=== PATIENT | female | born 1935 | race Caucasian/White ===

== ENCOUNTER 2016-07-03 12:36 | Day surgery (SDC) | payer MEDICARE ==
[~2016-07-03] VITALS: Ht 162.6 cm; Wt 71.2 kg
[~2016-07-03 12:36] MED LIST: ASPIRIN81 MG PO; CLARITIN 10MG T10 MG PO; COUMADIN 5MG TAB5 MG PO; EFFEXOR XR 75MG75 MG PO; FLEXERIL10 MG PO; HYZAAR 50-12.51 EACH PO; LASIX40 MG PO; METFORMIN HCL1000 MG PO; METOPROLOL 25 M25 MG PO; MUCINEX600 M1 PO; NAMENDA XR28 MG PO; NIFEDIPINE XL 330 MG PO; NORCO 325 MG-51 TAB PO; PACERONE200 MG PO; PRILOSEC20 M1 PO; PROAIR HFA0.09 MG/AC IH; SIMVASTATIN20 MG PO; SINGULAIR10 MG PO; TOPROL XL 100M100 MG PO; VENTOLIN H0.09 MG/AC IH; VITAMIN B121000 MC1 PO; VITAMIN B1250 MG PO
--- NOTE | 2016-07-03 15:22 | Operative Note ---
Upper GI Endoscopy Procedure date: 07/03/16 Date of : 37 Procedure:Upper GI Endoscopy Endoscopic retrograde cholangiopancreatography with biliary sphincterotomy and balloon extraction Indications: Mrs. Connolly is a 80-year-old female with chronic RIGHT upper quadrant abdominal pain. Her MRCP showed abnormal imaging of the common bile duct or there was no mass lesion but there was attenuation of the mid aspect of the lateral segment of the LEFT intrahepatic biliary tree. The patient has had some chronic constipation. The patient's biliary chemistries are normal with alkaline phosphatase 71, total bilirubin 0.8, ALT 21. ERCP is performed for further evaluation. The patient Has had an elevated lipase in the past. Performing Provider: Sarika Arias MD Referring Provider: Baldo Llamas M.D. Sedation: MACSedation Procedure: Prior to the procedure, a history and physical exam was performed, and patients medications and allergies were reviewed. The risks and benefits of the procedure and the sedation options and risks were discussed with the patient. All questions were answered and informed consent was obtained. The patient was brought to the procedure room. Patient identification and proposed procedure were verified by the physician and the nurse. The patient was placed in a left lateral decubitus position and the scope was passed under direct vision. Throughout the procedure, the patient's blood pressure, pulse, and oxygen saturations were monitored continuously. The endoscope was introduced through the mouth, and advanced to the second part of duodenum. The upper GI endoscopy was accomplished without difficulty. The patient tolerated the procedure well. Findings: The side-viewing endoscope was passed directly into the upper esophagus and passed to the second portion of the duodenum. The esophagus, stomach and duodenum were normal except for nonerosive gastroesophageal reflux disease and mild reactive gastritis. The ampulla was hidden behind redundant duodenal folds making its cannulation very difficult in the beginning. There was moderate spasm and glucagon was utilized. The pancreatic duct was cannulated initially. There was mild dilation of the pancreatic duct to 4-5 mm but there were no ductular ectasias or stricturing of the pancreatic duct. The common bile duct was eventually selectively cannulated and the common bile duct was 9 mm maximally. There was normal filling of the intrahepatic biliary system. There was no filling defect or stricturing noted. There was moderate to markedly delayed drainage of bile and contrast very indicative of sphincter of Oddi dysfunction and there was obvious tightness at the sphincter of Oddi. A biliary sphincterotomy was performed. Next, a nondistended 10 mm sweeping balloon was swept from the hilum twice with the passage of dark gold and bowel and a mild amount of biliary debris. There was excellent decompression of the biliary system. The gallbladder itself was mildly distended. Immediate complications: None EBL (ml): 0 Impression: 1. 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 Mild dilation of pancreatic/biliary system secondary to sphincter ability dysfunction and age 3. Mild dilation of gallbladder without any cholangiographic evidence of cholecystitis Recommendations: I do feel that she will have clinical improvement with biliary sphincterotomy and balloon sweep.the patient did have dilation of both the pancreatic and biliary tree and she has had RIGHT upper quadrant pain and elevated lipase which are suggestive of sphincter motility dysfunction. I am going to recommend surveillance/screening colonoscopy in the next couple of weeks. I will treat for visceral sensitivity. at [id number]
--- NOTE | 2016-07-03 15:51 | Anesthesia Record ---
Anesthesia Record Part I Total IV fluids: 1400 EBL (ml): 0 Urine Output: 0 B/P: 102/58 % SaO2: 95 Pulse: 91 Resps: 16 Temp: 97.8 Patient is: Drowsy, Stable Stable to PACU at: 1515 (sds) at 1550
--- NOTE | 2016-07-03 15:51 | Anesthesia Record ---
Anesthesia Record Part II Discharge time: 1515 Destination: Same day surgery PACU nurse assessment review? Yes Patient is: Stable Anesthesia complications? No at 1550
[2016-07-03 16:33] VITALS: BP 159/94
--- NOTE | 2016-07-11 08:10 | RADIOLOGY REPORT PS360 ---
ERCP RADIOLOGIC CLINICAL INDICATION: Right upper quadrant pain, follow-up abnormal CT scan. Left hepatic biliary dilatation unexplained RUQ PAIN ORDERING PHYSICIAN: SARIKA SHAH PATIENT AGE: 80 years Fluoroscopy time: 2 minutes and 51 seconds COMPARISON: Multiple previous CT scans and MRI abdomen FINDINGS: Multiple images submitted from the ERCP. The pancreatic duct and common bile duct have an unremarkable appearance. The biliary radicles also have an unremarkable appearance. No central obstructing lesions are evident.No common duct stones IMPRESSION: Unremarkable ERCP
== END 2016-07-03 16:15 | disposition home or self-care (01) ==
LOC: SDC 12:36
PROVIDERS: Internal Medicine Gastroenterology
PROC: 0F798ZZ Dilation of Common Bile Duct, Via Natural or Artificial Opening Endoscopic (ICD-10-PCS; 2016-07-03)
PROC: 0FC98ZZ Extirpation of Matter from Common Bile Duct, Via Natural or Artificial Opening Endoscopic (ICD-10-PCS; 2016-07-03)
PROC: 0F7D8ZZ Dilation of Pancreatic Duct, Via Natural or Artificial Opening Endoscopic (ICD-10-PCS; principal; 2016-07-03 13:00)
DX: K80.50 Calculus of bile duct without cholangitis or cholecystitis without obstruction (principal); K83.0 Cholangitis; K82.8 Other specified diseases of gallbladder
CPT/HCPCS: J2405

== ENCOUNTER 2016-10-19 06:54 | Emergency (ER) | payer MEDICARE ==
[~2016-10-19] VITALS: Ht 162.6 cm; Wt 68.0 kg
[2016-10-19] MEDS ORDERED: INVOKANA100 MG PO (07:09)
[2016-10-19] MEDS ORDERED: METFORMIN500 MG PO (07:10)
[2016-10-19] MEDS ORDERED: WARFARIN SOD5 MG PO (07:12)
[2016-10-19] MEDS ORDERED: DULOXETINE 30MG30 MG FT (07:13)
--- NOTE | 2016-10-19 07:29 | Emergency Room Report ---
History of Present Illness Time Seen by MD Linares Presenting Problem in Triage Pt arrived:Walked Presenting Problem:S/P FALL OVER FLOOR FAN. 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 N Clinical Suspician of Infection? N Mental Status: 1 - Regular (Normal Baseline) Sepsis Risk:Possible Sepsis Risk Have you (or family members/close friends) recently traveled outside the [place]? N If Yes, where/when: Have you had exposure to infectious disease within the past month? N TB? Other? Specify: Source patient, RN notes reviewed, family, old records Exam Limitations no limitations Comment pt with acute trip type fall with injury to lt fifth finger which occurred this am Cardiac Chest Pain Chest pain indicative of cardiac No Timing/Duration this evening Severity moderate ALLERGIES Coded Allergies: No Known Allergies (04/19/16) Home Medications Active Scripts HYDROCODONE/ACETAMINOPHEN ([place] 5-325 Tablet) 1 TAB PO Q4HP PRN BROKEN FOOT #10 TAB Prov: 08/12/14 Reported Medications Furosemide (Lasix) 20 MG PO BID Simvastatin 20 MG PO QHS Loratadine (Claritin 10MG) 10 MG PO DAILY WARFARIN SOD (Coumadin) 7.5 MG PO DAILY Aspirin 81 MG PO DAILY Metoprolol Tartrate (Metoprolol 25MG) 12.5 MG PO DAILY ALBUTEROL (Ventolin Hfa) 1 PUFF IH Q4HP PRN BREATHING CYANOCOBALAMIN (VITAMIN B-12) (Vitamin B-12) 2,000 MCG PO QHS NIFEDIPINE (Nifedipine ER) 30 MG PO QHS Canagliflozin (Invokana) 100 MG PO DAILY #30 Metformin HCL (Metformin) 1,000 MG PO DAILY WARFARIN SOD (Warfarin 5MG) 5 MG PO DAILY Duloxetine Hcl (Duloxetine 30MG Capsule) 60 MG FT DAILY History Medical History General CAD? No Angina: No [place]: No Hypertension? Yes Hyperlipidemia? No CHF? No DVT? No PE? No COPD? No Asthma? No Anemia? No GERD? No Gastric ulcers? No GI Bleed? No Hernia? No Thyroid Problems? No Hypothyroidism? No CVA? No Seizures? No Diabetes? Yes Insulin Dependent: No Insulin Pump: No Home FSBS? Yes Renal Insuffiency? No End Stage Renal Disease? No UTI? No Stones? No BPH? No GB Disease: No Nephritic Syndrome? No Asplenia? No Hepatitis? No Sickle Cell Disease? No Arthritis? No Migraines? No Cataracts? No Glaucoma? No MRSA? No HIV? No TB? No Anxiety? No Depression? No Cancer? No More? No Immunization Hx DT/Tetanus 1-4 Years Ago Surgical Hx Previous Surgery?Y X 3 RIGHT KNEE APPENDECTOMY LEFT FOOT Social History Smoking Hx Smoker: Former Smoker Tobacco: No Alcohol Alcohol: No Drugs none Review of Systems All Other Systems Reviewed and Negative Constitutional denies fever Eyes denies drainage ENT denies: ear discharge, epistaxis, throat pain. Respiratory denies cough, denies shortness of breath, denies wheezing Cardiovascular denies chest pain, denies palpitations, denies syncope Gastrointestinal denies abdominal pain, denies diarrhea, denies vomiting Genitourinary denies: dysuria, frequency, hesitancy, hematuria. Musculoskeletal see HPI, denies back pain, joint pain, joint swelling, denies neck pain Skin denies rash Psychiatric/Neurological denies headache, denies seizure Physical Exam Vital Signs Vital Signs Date Time Temp Pulse Resp B/P Pulse O2 O2 Flow FiO2 Ox Delivery Rate 10/19 0801 108 20 125/82 96 / 0702 98.2 107 20 125/82 92 - WBC >12,000 or <4,000 or 10% bands? 2 or more SIRS Criteria Met? B/P:125/82 MAP:96 Creatinine >2.0? UA output<0.5ml/kg/hr for 2 hrs? Platelet count >100,000? Lactate >2.0mmol/1? INR >1.2 or PTT > than 60 sec? Evidence of Organ Dysfunction? Provider documented clinical suspician of infection? N Sepsis Criteria Count: 2 Sepsis Risk: Possible Sepsis Risk General Appearance no apparent distress Eye Exam - bilateral eye PERRL, bilateral eye EOMI Ear, Nose, Throat normal ENT inspection Neck supple Respiratory Status No: respiratory distress. 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 No Results/Orders Current Medication Orders Sig/Chelita Start time Last Medication Dose Route Stop Time Status Admin Lidocaine HCl 0 .STK-MED ONE 10/19 0755 DC .ROUTE Orders Procedure Date/time Status STABILIZE JOINT 10/19 0815 Active XRAY/CT/US XRAY/CT/US XRAY hand XR interpretation by reviewed by me Xray Results abnormal (fx seen) Procedures Orthopedic/Inj/Splint Ortho Proc/Injections/Splints Risks/benefits discussed with pt/guardian? Yes IV conscious sedation No Procedural sedation digital block Arthrocentesis of (site) fifth finger Injection of anesthetic in joint (site) lidocaine digital block Medications Lidocaine mg Nerve block (site) digital 5th mcp Medications Lidocaine mg Reduction of fracture Location other Reductioni Method Other. Post reduction xrays completed and anatomic No Hand-Made Type orthoglass Splint ulnar gutter Pre-Proc Neuro Vasc Exam normal Post-Proc Neuro Vasc Exam unchanged from pre-exam Complications none Departure Departure Time of Disposition 0813 Disposition DC Home or Self Care(routine) Clinical Impression Primary Impression: Finger fracture, left Qualifiers: Encounter type: initial encounter Finger: little finger Fracture type: closed Phalanx: proximal Fracture alignment: displaced Qualified Code: S62.617A - Displaced fracture of proximal phalanx of left little finger, initial encounter for closed fracture Condition STABLE Referrals Aleks Mcdowell MD discussed with dr mcdowell Patient Instructions DI for Finger Fracture Additional Instructions use meds and see dr mcdowell in am at 1000 Discharge Counseling Counseled pt/family regarding diagnosis, test results, medications/RX, follow up needs Prescriptions Current Visit Scripts ACETAMINOPHEN WITH CODEINE (Tylenol With Codeine #3 Tablet) 1 TAB PO TID #10 TAB ED Critical Care Critical Care No at 0822
--- NOTE | 2016-10-19 07:49 | RADIOLOGY REPORT PS360 ---
HAND-LT-3 VIEWS HISTORY: Pain and swelling following injury FALL ON HAND ORDERING PHYSICIAN: PATIENT AGE: 80 years COMPARISON: None FINDINGS: There is a comminuted fracture involving the base of the proximal phalanx of the fifth finger with anterior and radial displacement of the distal fracture fragment by approximately 4 mm with dorsal angulation of the distal fracture fragment. No other anomalies evident. IMPRESSION: Comminuted displaced fracture of the proximal phalanx of the fourth digit
[2016-10-19] MEDS ORDERED: TYLENOL WITH CO1 TA1 PO (08:22)
[2016-10-19 08:34] VITALS: BP 132/88
== END 2016-10-19 08:35 | disposition home or self-care (01) ==
LOC: ER 06:54
PROC: 0PSVXZZ Reposition Left Finger Phalanx, External Approach (ICD-10-PCS; principal; 2016-10-19)
DX: S62.617A Displaced fracture of proximal phalanx of left little finger, initial encounter for closed fracture (principal); W01.0XXA Fall on same level from slipping, tripping and stumbling without subsequent striking against object, initial encounter; Z79.01 Long term (current) use of anticoagulants; Z79.82 Long term (current) use of aspirin; Z79.84 Long term (current) use of oral hypoglycemic drugs; Z79.891 Long term (current) use of opiate analgesic; Z79.899 Other long term (current) drug therapy; I10 Essential (primary) hypertension; E11.9 Type 2 diabetes mellitus without complications; Z87.891 Personal history of nicotine dependence

== ENCOUNTER → 2016-11-09 | Outpatient (CLI) | payer MEDICARE ==
[~2016-11-09] MED LIST changes: +DULOXETINE 30MG30 MG FT; +INVOKANA100 MG PO; +METFORMIN500 MG PO; +TYLENOL WITH CO1 TA1 PO; +WARFARIN SOD5 MG PO
--- NOTE | 2016-11-09 09:27 | RADIOLOGY REPORT PS360 ---
[id number] (PINKY)-3 VIEWS CLINICAL INDICATION: Follow-up fracture HEALING OF LEFT 5TH FINGER FX ORDERING PHYSICIAN: Aleks Mcdowell MD PATIENT AGE: 80 years COMPARISON: 10/26/2016 FINDINGS: There is a splint in place obscuring fine detail of the fracture at the base of the proximal phalanx of the fifth digit. There remains mild ulnar displacement of the proximal fracture fragment. IMPRESSION: Poor visualization of the fracture of the fifth digit secondary to overlying splint. Overall no change
== END ==
LOC: RAD 08:27
DX: S62.617D Displaced fracture of proximal phalanx of left little finger, subsequent encounter for fracture with routine healing (principal)

== ENCOUNTER → 2016-12-26 | Outpatient (CLI) | payer MEDICARE ==
[~2016-12-26] MED LIST changes: +AMOXICILLIN875 MG PO; +CENTRUM ADULTS1 EACH PO; +LANSOPRAZOLE30 MG PO; +LASIX 20MG. TAB20 MG PO; -LASIX40 MG PO; +METOPROLOL SUC100 M1 PO; +NATURAL E400 IU PO; +NATURAL OYSTER1 TAB PO; +SERTRALINE 100100 MG PO; +VITAMIN D1000 IU PO; +WARFARIN SODIU2.5 MG PO
--- NOTE | 2016-12-26 13:01 | RADIOLOGY REPORT PS360 ---
[id number] (PINKY)-3 VIEWS CLINICAL INDICATION: Follow-up fracture LEFT 5TH FINGER FX ORDERING PHYSICIAN: Aleks Mcdowell MD PATIENT AGE: 81 years COMPARISON: 11/09/2016 FINDINGS: The splint has been removed. There is a healing fracture involving the proximal aspect of the proximal phalanx of the fifth digit with developing callus formation with fractures not significant nondisplaced. There is minimal dorsal angulation of the distal fracture fragment. IMPRESSION: Healing fracture involving the proximal phalanx of the fifth digit
== END ==
LOC: RAD 08:14
DX: S62.617D Displaced fracture of proximal phalanx of left little finger, subsequent encounter for fracture with routine healing (principal)

== ENCOUNTER 2017-01-08 20:49 | Inpatient (IN) | payer MEDICARE ==
[~2017-01-08] VITALS: Ht 162.6 cm; Wt 63.1 kg
[~2017-01-08 20:49] MED LIST changes: -AMOXICILLIN875 MG PO; -CENTRUM ADULTS1 EACH PO; -LANSOPRAZOLE30 MG PO; -METOPROLOL SUC100 M1 PO; -NATURAL E400 IU PO; -NATURAL OYSTER1 TAB PO; -SERTRALINE 100100 MG PO; -VITAMIN D1000 IU PO; -WARFARIN SODIU2.5 MG PO
[2017-01-08 20:53] VITALS: BP 138/84
--- OUTSIDE RECORDS SUMMARY | 2017-01-08 21:00 | External Medical Summary Rpt | CCD ---
Author Author , LISA SIDHU Address Unknown Phone [email or web address] Purpose Continuity of Care Document - through 2016 Problems Code Diagnosis DOS Provider Status I48.91 UNSPECIFIED ATRIAL FIBRILLATIO N M84.374A STRESS FRACTURE, RIGHT FOOT, INITIAL ENCOUNTER FOR FRACTURE R10.9 UNSPECIFIED ABDOMINAL PAIN R51 HEADACHE S62.609A FRACTURE OF UNSP PHALANX OF UNSP FINGER, INIT FOR CLOS FX Z78.0 ASYMPTOMATI C MENOPAUSAL STATE
--- OUTSIDE RECORDS SUMMARY | 2017-01-08 21:00 | External Medical Summary Rpt | CCD ---
Author Author , LISA SIDHU Address Unknown Phone [email or web address] Purpose Continuity of Care Document - through 2016 Problems Code Diagnosis DOS Provider Status I48.91 UNSPECIFIED ATRIAL FIBRILLATIO N M84.374A STRESS FRACTURE, RIGHT FOOT, INITIAL ENCOUNTER FOR FRACTURE R10.9 UNSPECIFIED ABDOMINAL PAIN R51 HEADACHE S62.609A FRACTURE OF UNSP PHALANX OF UNSP FINGER, INIT FOR CLOS FX Z78.0 ASYMPTOMATI C MENOPAUSAL STATE
[2017-01-08] MEDS ORDERED: WARFARIN SODIU2.5 MG PO (21:01)
--- OUTSIDE RECORDS SUMMARY | 2017-01-08 21:01 | External Medical Summary Rpt | CCD ---
Demographics Preferred Language Luxembourgish Marital Status Unknown Amish Affiliation Unknown Race Unknown Ethnic Group Unknown Author Author , [employer] Address Unknown Phone Immunization Unable to retrieve immunization data due to connection failure with Immunization Registry. Please try again later.
--- OUTSIDE RECORDS SUMMARY | 2017-01-08 21:01 | External Medical Summary Rpt | CCD ---
Demographics Preferred Language Indonesian Marital Status Unknown Sikhism Affiliation Unknown Race Unknown Ethnic Group Unknown Author Author , [employer] Organization [employer] Address Unknown Phone Immunization Unable to retrieve immunization data due to connection failure with Immunization Registry. Please try again later.
--- OUTSIDE RECORDS SUMMARY | 2017-01-08 21:01 | External Medical Summary Rpt ---
Author Author THEA Camilo, [employer] Cam[employer] Address Unknown Phone Unavailable
[2017-01-08] MEDS ORDERED: METOPROLOL SUC100 M1 PO (21:02)
[2017-01-08] MEDS ORDERED: AMOXICILLIN875 MG PO (21:03)
[2017-01-08] MEDS ORDERED: SERTRALINE 100100 MG PO (21:04)
[2017-01-08 21:19] LABS: URINE BILIRUBIN - DIPSTICK NEGATIVE (NEG); URINE BLOOD NEGATIVE (NEG)
--- NOTE | 2017-01-08 21:23 | Emergency Room Report ---
History of Present Illness Time Seen by [id number] Presenting Problem in Triage Pt arrived:Walked Presenting Problem:PT REPORTS DIARRHEA X1 WEEK, PT REPORTS PAIN ACROSS LOWER ABD. 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 N Clinical Suspician of Infection? N Mental Status: 1 - Regular (Normal Baseline) Sepsis Risk:Low Sepsis Risk Have you (or family members/close friends) recently traveled outside the [place]? N If Yes, where/when: Have you had exposure to infectious disease within the past month? N TB? Other? Specify: Source patient, RN notes reviewed, family, old records Exam Limitations no limitations Comment progressive lower abd pain in lt lower abd with dec po intake but no fever or vomiting but does have diarrhea w/o blood Cardiac Chest Pain Chest pain indicative of cardiac No Timing/Duration this evening Severity moderate ALLERGIES Coded Allergies: No Known Allergies (04/19/16) Home Medications Reported Medications Furosemide (Lasix) 20 MG PO BID Simvastatin 20 MG PO QHS Loratadine (Claritin 10MG) 10 MG PO DAILY Aspirin 81 MG PO DAILY ALBUTEROL (Ventolin Hfa) 1 PUFF IH Q4HP PRN BREATHING CYANOCOBALAMIN (VITAMIN B-12) (Vitamin B-12) 2,000 MCG PO QHS NIFEDIPINE (Nifedipine ER) 30 MG PO QHS Canagliflozin (Invokana) 100 MG PO DAILY #30 Metformin HCL (Metformin) 1,000 MG PO DAILY WARFARIN SOD (Warfarin 5MG) 5 MG PO T,R,SAT,SUN WARFARIN SOD (Warfarin 2.5MG) 7.5 MG PO M,W,F METOPROLOL SUCCINATE XL (Metoprolol Succinate) 100 MG PO DAILY AMOXICILLIN (Amoxicillin 875MG Tab) 875 MG PO BID #14 Sertraline Hydrochloride (Sertraline 100MG) 100 MG PO DAILY #30 History Medical History General CAD? No Angina: No [place]: No Hypertension? Yes Hyperlipidemia? No CHF? No DVT? No PE? No COPD? No Asthma? No Anemia? No GERD? No Gastric ulcers? No GI Bleed? No Hernia? No Thyroid Problems? No Hypothyroidism? No CVA? No Seizures? No Diabetes? Yes Insulin Dependent: No Insulin Pump: No Home FSBS? Yes Renal Insuffiency? No End Stage Renal Disease? No UTI? No Stones? No BPH? No GB Disease: No Nephritic Syndrome? No Asplenia? No Hepatitis? No Sickle Cell Disease? No Arthritis? No Migraines? No Cataracts? No Glaucoma? No MRSA? No HIV? No TB? No Anxiety? No Depression? No Cancer? No More? No Immunization Hx DT/Tetanus 1-4 Years Ago Surgical Hx Previous Surgery?Y X 3 RIGHT KNEE APPENDECTOMY LEFT FOOT Social History Smoking Hx Smoker: Former Smoker Tobacco: No Alcohol Alcohol: No Drugs none Review of Systems All Other Systems Reviewed and Negative Constitutional denies fever Eyes denies drainage ENT denies: ear discharge, epistaxis, throat pain. Respiratory denies cough, denies shortness of breath, denies wheezing Cardiovascular denies chest pain, denies palpitations, denies syncope Gastrointestinal see HPI, abdominal pain, diarrhea, nausea, denies vomiting Genitourinary denies: dysuria, frequency, hesitancy, hematuria. Musculoskeletal denies back pain, denies joint pain, denies joint swelling, denies neck pain Skin denies rash Psychiatric/Neurological denies headache, denies seizure Physical Exam Vital Signs Vital Signs Date Time Temp Pulse Resp B/P Pulse O2 O2 Flow FiO2 Ox Delivery Rate 01/08 2253 98.2 85 18 105/59 95 01/08 2247 94 18 100/46 96 01/08 2053 98.2 105 18 138/84 96 - WBC >12,000 or <4,000 or 10% bands? 2 or more SIRS Criteria Met? B/P:105/59 MAP:102 Creatinine >2.0? UA output<0.5ml/kg/hr for 2 hrs? Platelet count >100,000? Lactate >2.0mmol/1? INR >1.2 or PTT > than 60 sec? Evidence of Organ Dysfunction? Provider documented clinical suspician of infection? N Sepsis Criteria Count: 1 Sepsis Risk: Low Sepsis Risk General Appearance no apparent distress Eye Exam - bilateral eye PERRL, bilateral eye EOMI Ear, Nose, Throat normal ENT inspection Neck supple Respiratory Status No: respiratory distress. Lung Sounds bilateral: lungs clear. 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 No Results/Orders Laboratory Tests 01/08/172104: Urine Color YELLOW, Urine Appearance CLEAR, Urine pH 6.0, Ur Specific [place] 1.010, Urine Protein NEGATIVE, Urine Ketones NEGATIVE, Urine Blood NEGATIVE, Urine Nitrate NEGATIVE, Urine Bilirubin NEGATIVE, Urine Urobilinogen 0.2, Ur Leukocyte Esterase NEGATIVE, Urine RBC 3-5, Urine WBC 3-5, Ur Squamous Epith Cells 3-5, Urine Bacteria 1+, Urine Mucus 1+, Urine Glucose 3+ H 01/08/17 2100: Sodium 139, Potassium 3.5, Chloride 101, Carbon Dioxide 26, BUN 14, Creatinine 1.1 H, Estimated Creat Clear 44 L, Estimated GFR (MDRD) 48 L, Glucose 229 H, Calcium 10.0, Total Bilirubin 0.3, AST 12 L, ALT 20, Alkaline Phosphatase 75, Total Protein 8.2, Albumin 3.8, Globulin 4.4 H, Albumin/Globulin Ratio 0.9 L, Amylase 40, Lipase 323, PT 18.7 H, INR 1.72 H, WBC 8.9, RBC 4.76, Hgb 13.8, Hct 41.9, MCV 87.9, RDW 13.9, Plt Count 348, MPV 7.6, Gran % 67.8, Gran # 6.0, Lymphocytes % 23.2, Monocytes % 6.5, Eosinophils % 1.7, Basophils % 0.8, Lymphocytes # 2.1, Monocytes # 0.6, Eosinophils # 0.2, Basophils # 0.1, PUBS MCHC 33.0, MCH 29.0 Current Medication Orders Sig/Chelita Start time Last Medication Dose Route Stop Time Status Admin Levofloxacin/Dextrose 100 ML ONCE ONE 01/08 2315 r IV 01/09 14 Metronidazole 100 ML ONCE ONE 01/08 2315 AC IV 01/09 14 Sodium Chloride 10 ML PRN PRN 01/08 2115 AC IV 01/09 2105 Orders Procedure Date/time Status DIET-NOTHING BY MOUTH 01/09 B Active Decision to admit 01/[address] ABD & PELVIS W/O CONTRAST 01/[address] ABD/PELVIS REQ 01/09 2124 Complete DIARRHEA PANEL, PCR 01/09 2124 Active IV SALINE LOCK 01/08 2105 Active URINALYSIS/COMPLETE 01/08 2105 Complete PROTHROMBIN TIME 01/08 2105 Complete LIPASE 01/08 2105 Complete CBC WITH AUTO DIFF 01/08 2105 Complete CHEM 12 PROFILE 01/08 2105 Complete AMYLASE 01/08 2105 Complete XRAY/CT/US XRAY/CT/US CT abdomen, pelvis CT interpretation by discussed w/radiologist Time results known: 2313 CT Results abnormal (see report) Departure Departure Time of Disposition 2256 Disposition Still a Patient Clinical Impression Primary Impression: Diverticulitis large intestine Qualifiers: Diverticulitis bleeding: without bleeding Diverticulitis complication: without perforation or abscess Qualified Code: K57.32 - Diverticulitis of large intestine without perforation or abscess without bleeding Condition STABLE Referrals Baldo Diehl MD (Family) discussed with dr diehl ED Critical Care Critical Care No at 2310
[2017-01-08 21:26] LABS: HEMOGLOBIN 13.8 g/dL (12.2-16.2); LYMPH # 2.1 K/mm3 (0.7-4.5); LYMPH % 23.2 % (10-50.0)
--- OUTSIDE RECORDS SUMMARY | 2017-01-08 23:12 | External Medical Summary Rpt | CCD ---
Demographics Preferred Language Yoruba Marital Status Unknown Christian Affiliation Unknown Race Unknown Ethnic Group Unknown Author Author , [employer] Organization [employer] Address Unknown Phone Immunization Unable to retrieve immunization data due to connection failure with Immunization Registry. Please try again later.
--- OUTSIDE RECORDS SUMMARY | 2017-01-08 23:12 | External Medical Summary Rpt | CCD ---
Author Author , THEA Organization THEA Address Unknown Phone [email or web address] Purpose Continuity of Care Document - 01-08-2017 through 2016 Problems Code Diagnosis DOS Provider Status I48.91 UNSPECIFIED ATRIAL FIBRILLATIO N M84.374A STRESS FRACTURE, RIGHT FOOT, INITIAL ENCOUNTER FOR FRACTURE R10.9 UNSPECIFIED ABDOMINAL PAIN R51 HEADACHE S62.609A FRACTURE OF UNSP PHALANX OF UNSP FINGER, INIT FOR CLOS FX Z78.0 ASYMPTOMATI C MENOPAUSAL STATE Results Labs Lab Lab Date Result Refere Interp Status Commen Order Detail nces retati t Range on Urinalysis with microscopy (01-08-2017 21:05) Erythro 01-08- 3-5 3-5 0 complet cytes 017 L ed detecti 21:05 rbc/hpf on in urine sedimen t Urine = 1.010 1.005-1 complet specifi 017 .030 ed c 21:05 gravity measure ment [place] 3-5 3-5 0-5 complet s 017 L ed epithel 21:05 #/hpf ial cells detecti on in u Urine 0.2 0.2 NEG complet urobili 017 L ed nogen 21:05 E.U./dL detecti on by test str Urine 3 - 5 O complet leukocy 017 wbc/hpf ed esperanza 21:05 count (number /volume ) Urine CLEAR CLEAR complet appeara 017 CLEAR L ed nce 21:05 determi nation Bacteri 1+ 1+ L O complet a 017 ed detecti 21:05 on in urine sedimen t by Urine NEGATIV NEG complet total 017 E ed bilirub 21:05 NEGATIV in E L detecti on by test Urine NEGATIV NEG complet blood 017 E ed detecti 21:05 NEGATIV on E L Urine YELLOW YELLOW complet color 017 YELLOW ed 21:05 L Glucose 2 3 + NEG complet ur 017 ed test 21:05 strip Urine NEGATIV NEG complet ketones 017 E ed 21:05 NEGATIV detecti E L on by mg/dL automat ed esperanza Mucus NEGATIV NEG complet detecti 017 E ed on in 21:05 NEGATIV urine E L sedimen t by lig Mucus 1+ 1+ L OCC complet detecti 017 ed on in 21:05 urine sedimen t by lig Urine NEGATIV NEG complet nitrite 017 E ed 21:05 NEGATIV detecti E L on by test strip Urine 2 = 6.0 5.0-8.5 complet pH 017 ed 21:05 Urine = NEG complet protein 017 NEGATIV ed 21:05 E mg/dL measure ment by automat ed t Amylase ser/plas (01-08-2017 21:00) Amylase 2 = 40 25-115 complet 017 U/L ed ser/sierra 21:00 s Comprehensive metabolic panel (01-08-2017 21:00) Serum 01-08-2 = 3.8 3.4-5.0 complet or 017 gm/dL ed plasma 21:00 albumin measure ment (mas Serum 01-08-2 = 75 46-116 complet or 017 U/L ed plasma 21:00 alkalin e phospha tase mandy Serum 01-08-2 = 0.3 0.2-1.0 complet or 017 mg/dL ed plasma 21:00 total bilirub in measure m Serum 01-08-2 = 14 7-18 complet or 017 mg/dL ed plasma 21:00 urea nitroge n measure men Serum 01-08-2 = 10.0 8.5-10. complet or 017 mg/dL 1 ed plasma 21:00 calcium measure ment (mas Serum 01-08-2 = 101 98-107 complet or 017 mmoL/L ed plasma 21:00 chlorid e measure ment (mo Carbon 01-08-2 = 26 21.0-32 complet dioxide 017 mmoL/L .0 ed 21:00 measure ment Serum 01-08-2 = 1.1 0.55-1. complet or 017 mg/dL 02 ed plasma 21:00 creatin ine measure ment ( Estimat = 44 50-200 complet ion of 017 ML/MIN ed creatin 21:00 ine renal clearan ce Estimat = 48 59- complet ed 017 ML/MIN ed glomeru 21:00 lar filtrat ion rate (GF Comment: REFERENCE RANGE: >60 ML/MIN/1.73 SQUARE METERS Comment: If this patient is -Mozambican, then multiply the Comment: result by 1.210. Serum = 4.4 1.3-3.2 complet globuli 017 gm/dL ed n 21:00 measure ment (mass/v olume) Serum = 229 74-106 complet or 017 mg/dL ed plasma 21:00 glucose measure ment (mas Serum = 3.5 3.5-5.1 complet potassi 017 mmoL/L ed um 21:00 measure ment Serum = 139 136-145 complet sodium 017 mmoL/L ed measure 21:00 ment Serum = 12 15-37 complet or 017 U/L ed plasma 21:00 asparta te aminotr ansfera ALT = 20 12-78 complet (SGPT) 017 U/L ed ser/sierra 21:00 s Protein = 8.2 6.4-8.2 complet total 017 gm/dL ed ser/sierra 21:00 s Serum = 0.9 1.1-1.8 complet or 017 ed plasma 21:00 albumin /globul in mass ra Lipase measurement (01-08-2017 21:00) Lipase = 323 73-393 complet measure 017 U/L ed ment 21:00 Whole blood INR measurement (01-08-2017 21:00) Comment: IS PATIENT ON ANTICOAGULANTS? Y Comment: LIST ANTICOAGULANTS: Comment: COUMADIN Whole = 1.72 0.9-1.1 complet blood 017 ed INR 21:00 measure ment Comment: INDICATION INR RANGE Comment: Comment: THERAPY FOR DVT, PE, ATRIAL FIB; 2.0 - 3.0 Comment: PROPHYLAXIS FOR VTE Comment: Comment: THERAPY FOR MECHANICAL HEART 2.5 - 3.5 Comment: VALVE; PREVENTION OF SYSTEMIC Comment: EMBOLISM SECONDARY TO AMI Prothro = 18.7 9.4-11. complet mbin 017 SECONDS 8 ed time 21:00 (PT) in platele t poor p CBC w auto diff (01-08-2017 21:00) Automat = 0.1 0-0.2 complet ed 017 K/MM3 ed blood 21:00 basophi l count (count/ vo Baso % = 0.8 % 0.1-2.0 complet 017 ed 21:00 Automat = 0.2 0.0-0.4 complet ed 017 K/mm3 ed blood 21:00 eosinop hil count Automat = 1.7 % 0.1-12. complet ed 017 0 ed blood 21:00 eosinop hils/10 0 leukocy t Blood = 6.0 1.8-7.8 complet granulo 017 K/mm3 ed cytes 21:00 automat ed count (numb Granulo = 67.8 37.0-80 complet cyte 017 % .0 ed percent 21:00 age Blood = 41.9 37.0-47 complet hematoc 017 % .0 ed rit 21:00 (volume fractio n) Blood = 13.8 12.2-16 complet hemoglo 017 g/dL .2 ed bin 21:00 measure ment (mass/v olum Absolut = 2.1 0.7-4.5 complet e 017 K/mm3 ed lymphoc 21:00 yte count Lymphoc = 23.2 10-50.0 complet yte 017 % ed count, 21:00 blood, automat ed Mean = 29.0 27-31.2 complet corpusc 017 pg ed ular 21:00 hemoglo bin (MCH) determ Automat = 33.0 31.8-35 complet ed 017 g/dl .4 ed erythro 21:00 cyte mean corpusc ular h Automat = 87.9 82.2-97 complet ed 017 fl .8 ed erythro 21:00 cyte mean corpusc ular v Absolut = 0.6 0.1-1.0 complet e 017 K/mm3 ed monocyt 21:00 e count [place] % = 6.5 % 1.7-9.3 complet 017 ed 21:00 Automat = 7.6 7.4-10. complet ed 017 fl 4 ed blood 21:00 platele t mean volume mandy Blood = 348 142-424 complet platele 017 K/mm3 ed t count 21:00 Red = 4.76 4.2-5.4 complet blood 017 M/mm3 ed cell 21:00 count Automat = 13.9 11.5-17 complet ed 017 % .5 ed erythro 21:00 cyte distrib ution width Blood = 8.9 4.8-10. complet leukocy 017 K/MM3 8 ed esperanza 21:00 count (number /volume )
--- OUTSIDE RECORDS SUMMARY | 2017-01-08 23:12 | External Medical Summary Rpt | CCD ---
Author Author , THEA Organization THEA Address Unknown Phone [email or web address] Purpose Continuity of Care Document - 01-08-2017 [...] SQUARE METERS Comment: If this patient is -Latvian, then multiply the Comment: result by 1.210. [...] 017 K/mm3 ed monocyt 21:00 e count [place] % = 6.5 % 1.7-9.3 complet 017 [...]
--- OUTSIDE RECORDS SUMMARY | 2017-01-08 23:12 | External Medical Summary Rpt | CCD ---
Demographics Preferred Language Lao Marital Status Unknown Lutheran Affiliation Unknown Race Unknown Ethnic Group Unknown Author Author , THEA Organization THEA Address Unknown Phone Immunization Unable to retrieve immunization data due to connection failure with Immunization Registry. Please try again later.
[2017-01-09] VITALS (8 sets, daily range): BP systolic 114–132; BP diastolic 59–71
--- NOTE | 2017-01-09 06:16 | RADIOLOGY REPORT PS360 ---
CT ABD PELVIS W/O CONTRAST CLINICAL INDICATION: Abdominal pain with diarrhea DIARRHEA X1 WEEK, LOWER ABD PAIN ORDERING PHYSICIAN: Pablo Hannah MD PATIENT AGE: 81 years COMPARISON: 07/03/2016 TECHNIQUE: Axial images obtained with sagittal and coronal reformats. PROCEDURE: Oral Contrast: None IV Contrast: None . FINDINGS: Lower thorax: Coronary artery calcifications are present. Minimal atelectatic or fibrotic changes are present in the lung bases. ABDOMEN: Liver: No masses or biliary dilatation. Gallbladder: Nondistended. No radio opaque stones. Pancreas: No masses or peripancreatic fluid collections. Spleen: Unremarkable. Adrenals: Unremarkable Kidneys/ureters: No masses. No renal calculi. No hydronephrosis. No perinephric fluid collections. No ureteral dilatation or obvious ureteral calculi. Stomach bowel: There is extensive diverticulosis of the sigmoid colon with minimal stranding of the pericolic fat consistent with mild diverticulitis. No free air or abscess. No evidence of intestinal obstruction or free air. Appendix: No evidence of appendicitis. PELVIS: Reproductive: 5.7 x 4.5 cm cystic lesion in the left adnexa with some punctate calcifications. As previously measured 5.8 x 3.9 cm. Consider pelvic ultrasound in this postmenopausal patient. Bladder: Nondistended. No obvious stones or masses. ABDOMEN & PELVIS: Peritoneum: No abnormal fluid collections. No obvious inflammatory changes. No free air. Lymph nodes: No enlarged lymph nodes apparent. Vasculature: No evidence of abdominal aortic aneurysm. No retroperitoneal hemorrhage evident. Bones: No acute fracture IMPRESSION: 1. Acute diverticulitis involving the sigmoid colon with diverticulosis. 2. Slightly enlarged left adnexal cyst. Consider pelvic ultrasound for further evaluation in this postmenopausal patient
[2017-01-09 07:34] LABS: LYMPH # 1.5 K/mm3 (0.7-4.5)
[2017-01-09 07:42] LABS: HEMOGLOBIN 12.1 g/dL (12.2-16.2)
[2017-01-09] MEDS ORDERED: LANSOPRAZOLE30 MG PO (09:11)
[2017-01-09] MEDS ORDERED: NATURAL OYSTER1 TAB PO (09:12)
[2017-01-09] MEDS ORDERED: NATURAL E400 IU PO (09:13)
[2017-01-09] MEDS ORDERED: VITAMIN D1000 IU PO (09:14)
[2017-01-09] MEDS ORDERED: CENTRUM ADULTS1 EACH PO (09:15)
--- NOTE | 2017-01-09 09:35 | HISTORY AND PHYSICAL REPORT ---
History and Physical ([facility]) Date of admission: 01/09/17 Chief complaint: diarrhea with abdominal pain History: History of Present Illness: Ms Connolly is an 81 year old female with a history of atrial fib, [id number], HTN, Diverticulosis, Sphincter of Oddi Dysfunction and Depression who presented to [facility] ER for evaluation after experiencing diarrhea for 1 week and abdominal pain for 5 days. She states the pain became severe and she could not wait for an office visit. She denies fever, nausea and vomiting. She continued with diarrhea for about 1 week; She did not note any blood. She had continued to try and eat. She was treated for a bronchitis with amoxicillin 01/02/17. The cough has resolved. CT of the abdomen in the ER revealed diverticulitis. She was admitted and started on IVF and Flagyl and Levaquin. She states the pain med has helped. She was able to eat a little breakfast. Past Medical History: Medical History: CAD? No Angina: No [place]: No Hypertension? Yes Hyperlipidemia? Yes CHF? No DVT? No PE? No COPD? No Asthma? No Anemia? No GERD? No Gastric ulcers? No GI Bleed? No Hernia? No Thyroid Problems? No Hypothyroidism? No CVA? No Seizures? No Diabetes? Yes Insulin Dependent: No Insulin Pump: No Home FSBS? Yes Renal Insuffiency? No UTI? No Stones? No BPH? No GB Disease: No Nephritic Syndrome? No Asplenia? No Hepatitis? No Sickle Cell Disease? No Arthritis? No Migraines? No Cataracts? No Glaucoma? No MRSA? No HIV? No TB? No Anxiety? No Depression? Yes Cancer? No More? No Additional hx: Sphincter of Oddi Dysfunction Diverticulosis Allergic Rhinitis Surgical history: Previous Surgery?Y X 3 RIGHT KNEE APPENDECTOMY LEFT FOOT Medications: Reported Medications Furosemide (Lasix 20MG) 20 MG PO DAILY Metformin HCL (Metformin) 1,000 MG PO BID Lansoprazole (Lansoprazole) 30 MG PO DAILY CALCIUM CARBONATE/VITAMIN D3 (Calcium 500 + Vit D 400 Tablet) 1 TAB PO BID Vitamin E 400 IUNITS PO DAILY CHOLECALCIFEROL (VITAMIN D3) (Vitamin D3) 1,000 IUNITS PO DAILY Multivitamin/Iron/Folic Acid (Centrum Adults Tablet) 1 EACH PO Simvastatin 20 MG PO QHS Loratadine (Claritin 10MG) 10 MG PO DAILY Aspirin 81 MG PO DAILY CYANOCOBALAMIN (VITAMIN B-12) (Vitamin B-12) 2,000 MCG PO QHS NIFEDIPINE (Nifedipine ER) 30 MG PO QHS Canagliflozin (Invokana) 100 MG PO DAILY #30 WARFARIN SOD (Warfarin 5MG) 5 MG PO T,R,SAT,SUN WARFARIN SOD (Warfarin 2.5MG) 7.5 MG PO M,W,F METOPROLOL SUCCINATE XL (Metoprolol Succinate) 100 MG PO DAILY AMOXICILLIN (Amoxicillin 875MG Tab) 875 MG PO BID #14 Sertraline Hydrochloride (Sertraline 100MG) 100 MG PO DAILY #30 Allergies: Coded Allergies: No Known Allergies (04/19/16) Family History: Family history: Postive for: CAD, HTN. Social History: Smoking Hx Tobacco: No Smoker: Former Smoker Type: N/A Packs/day: N/A Are you exposed to second hand No Alcohol: Alcohol: No Hx of Drug Use: Drug Use? No Review of Systems: ENT No: ear ache, sinus problems, sore throat. Cardiovascular Positive for: palpitations. No: chest pain, edema. Respiratory No: shortness of air, non-productive, productive cough (sputum). GI Positive for: abdominal pain, diarrhea. No: GERD, constipation, hematemeis, hematochezia, melena, nausea, vomitting. (female) No: frequency, hematuria. Neurological No: dizziness, headache, seizure, syncope. Musculoskeletal No: extremity pain, extremity swelling, joint pain. Physical Exam: Vital signs: Vital Signs Date Time Temp Pulse Resp B/P Pulse O2 O2 Flow FiO2 Ox Delivery Rate 01/09 0735 98.7 90 20 119/69 95 ROOM AIR 01/09 0508 20 01/09 0413 98.3 107 20 115/63 95 ROOM AIR 01/09 0107 18 01/09 0059 98.4 104 18 119/59 01/09 0025 104 01/09 0025 94 ROOM AIR 01/09 0011 98.4 104 18 119/59 94 ROOM AIR 01/08 2350 98.1 85 18 126/70 95 01/08 2339 98.1 85 18 126/70 95 01/08 2332 18 01/08 2253 98.2 85 18 105/59 95 01/08 2247 94 18 100/46 96 01/08 2053 98.2 105 18 138/84 96 1ST Vital Signs Result Date Time Pulse Ox 96 01/08 2053 B/P 138/84 01/08 2053 Temp 98.2 01/08 2053 Pulse 105 01/08 2053 Resp 18 01/08 2053 O2 Delivery ROOM AIR 01/09 0011 Exam: General appearance: alert, active, no acute distress Eyes: anicteric, pupils reactive to light ENT: mucous membranes moist, pharynx normal Neck: non-tender, no carotid bruit, full range of motion, supple, lymphadenopathy (absent), thyroid (normal) Cardiovascular: regular rate & rhythm Respiratory: clear to auscultation (bilat anterior and posterior) ABD: soft, bowel sounds present (all quads), mildly tender in all lower quads Extremities: full range of motion, no peripheral edema, no calf tenderness Lab data: Labs: Laboratory Tests 01/09/17 0642: Sodium 143, Potassium 3.6, Chloride 107, Carbon Dioxide 28, BUN 13, Creatinine 0.9, Estimated Creat Clear 50, Estimated GFR (MDRD) 60, Glucose 156 H, Calcium 9.1, WBC 6.9, RBC 4.35, Hgb 12.1 L, Hct 38.2, MCV 87.7, RDW 13.9, Plt Count 291 , MPV 7.3 L, Gran % 70.6, Gran # 4.9, Lymphocytes % 21.0, Monocytes % 5.9, Eosinophils % 1.7, Basophils % 0.8, Lymphocytes # 1.5, Monocytes # 0.4, Eosinophils # 0.1, Basophils # 0.1, PUBS MCHC 31.9, MCH 28.0 01/09/17 0606: POC Glucose 150 H 01/08/17 2105: Urine Color YELLOW, Urine Appearance CLEAR, Urine pH 6.0, Ur Specific [place] 1.010, Urine Protein NEGATIVE, Urine Ketones NEGATIVE, Urine Blood NEGATIVE, Urine Nitrate NEGATIVE, Urine Bilirubin NEGATIVE, Urine Urobilinogen 0.2, Ur Leukocyte Esterase NEGATIVE, Urine RBC 3-5, Urine WBC 3-5, Ur Squamous Epith Cells 3-5, Urine Bacteria 1+, Urine Mucus 1+, Urine Glucose 3+ H 01/08/17 2100: Sodium 139, Potassium 3.5, Chloride 101, Carbon Dioxide 26, BUN 14, Creatinine 1.1 H, Estimated Creat Clear 44 L, Estimated GFR (MDRD) 48 L, Glucose 229 H, Calcium 10.0, Total Bilirubin 0.3, AST 12 L, ALT 20, Alkaline Phosphatase 75, Total Protein 8.2, Albumin 3.8, Globulin 4.4 H, Albumin/Globulin Ratio 0.9 L, Amylase 40, Lipase 323, PT 18.7 H, INR 1.72 H, WBC 8.9, RBC 4.76, Hgb 13.8, Hct 41.9, MCV 87.9, RDW 13.9, Plt Count 348, MPV 7.6, Gran % 67.8, Gran # 6.0, Lymphocytes % 23.2, Monocytes % 6.5, Eosinophils % 1.7, Basophils % 0.8, Lymphocytes # 2.1, Monocytes # 0.6, Eosinophils # 0.2, Basophils # 0.1, PUBS MCHC 33.0, MCH 29.0 Radiology results: Results: CT of abdomen/pelvis 01/08/17 IMPRESSION: 1. Acute diverticulitis involving the sigmoid colon with diverticulosis. 2. Slightly enlarged left adnexal cyst. Consider pelvic ultrasound for further evaluation in this postmenopausal patient Diagnosis(es): 1. Diverticulitis large intestine Status: Acute 2. Atrial fibrillation with RVR Status: Chronic 3. Diarrhea Status: Acute 4. Type 2 diabetes mellitus Status: Chronic 5. HTN (hypertension) Status: Chronic Plan: continue with Flagyl and Levaquin, IVF, sliding scale insulin; some of home meds restarted (Trice Shen APRN) Diagnosis(es): 1. Diverticulitis large intestine Status: Acute 2. Atrial fibrillation with RVR Status: Chronic 3. Diarrhea Status: Acute 4. Type 2 diabetes mellitus Status: Chronic 5. HTN (hypertension) Status: Chronic Plan: Patient seen and agree with above note. (Baldo Llamas MD) at 0935 at 1207
--- NOTE | 2017-01-09 11:23 | PHARMACY CLINIC NOTE ---
Patient Demographics Patient Demographics Admission date: 01/09/17 Date: 01/09/17 Time: 1123 Allergies Coded Allergies: No Known Allergies (04/19/16) HEIGHT- FT: 5 IN: 4.00 K.078 VTE General Information Labs: Laboratory Tests 01/09 01/08 0642 2100 Coagulation PT (9.4 - 11.8 SECONDS) 18.7 H INR (0.9 - 1.1) 1.72 H Hematology Hgb (12.2 - 16.2 g/dL) 12.1 L 13.8 Hct (37.0 - 47.0 %) 38.2 41.9 Plt Count (142 - 424 K/mm3) 291 348 Disclaimer The following section includes nursing documentation that has been pulled in for pharmacy review. Patient's VTE score: 1 Patient's VTE Risk: VERY LOW RISK Clinical trial participant? No VTE prophylaxis NQF [id number] VTE prophylaxis ordered? Yes Type of prophylaxis/treatment: NANNETTE at 1123
[2017-01-09] MEDS ORDERED: WARFARIN SOD5 MG PO (12:09)
[2017-01-10 04:30] VITALS: BP 115/65
[2017-01-10 08:00] VITALS: BP 93/52
--- NOTE | 2017-01-10 08:09 | ACUTE CARE PROGRESS NOTE (QUA) ---
Progress Notes Subjective Date 01/10/17 Time 0805 Note Pt states she feels a little better today. Abdominal pain has improved but is still present in LLQ. Tolerating her diet. Still no BM but is passing gas. Objective Findings Last VS-Temp:98.4 B/P:115/65 Pulse:85 Resp:18 SaO2:91 ROOM AIR Last weight lbs:139 oz:1 K.078 Method:Bed Scales Laboratory Tests 01/10/17 0612: PT 24.9 H, INR 2.29 H 01/10/17 0606: POC Glucose 145 H 01/09/17 2020: POC Glucose 141 H 01/09/17 1619: POC Glucose 140 H 01/09/17 1138: POC Glucose 125 H Exam General appearance: alert, awake, no acute distress Cardiovascular: regular rate & rhythm Respiratory: clear to auscultation ABD: non-distended, normal bowel sounds, no rebound, soft, no guarding, ttp in the LLQ Extremities: no peripheral edema Assessment/Plan Problem List 1. Diverticulitis large intestine Status: Acute 2. Atrial fibrillation with RVR Status: Chronic 3. Diarrhea Status: Acute 4. Type 2 diabetes mellitus Status: Chronic 5. HTN (hypertension) Status: Chronic Plan: Continue current treatment. Patient improving. This inpt stay is expected to cross 2 MNs from start of care Yes (Mariah Armijo) Assessment/Plan Problem List 1. Diverticulitis large intestine Status: Acute 2. Atrial fibrillation with RVR Status: Chronic 3. Diarrhea Status: Acute 4. Type 2 diabetes mellitus Status: Chronic 5. HTN (hypertension) Status: Chronic Comments: Patient seen and agree with above note, plan discharge home today, f/u in office in 3 days for repeat INR. (Baldo Llamas MD) at 0809 at 0822
[2017-01-10] MEDS ORDERED: METRONIDAZOLE500 M2 PO (08:26)
[2017-01-10] MEDS ORDERED: LEVAQUIN500 MG PO (08:26)
[2017-01-10] MEDS ORDERED: TRAMADOL50 M1 PO (10:19)
[2017-01-10 11:15] VITALS: BP 93/52
--- NOTE | 2017-01-11 13:38 | DISCHARGE SUMMARY STANDARD ---
Discharge Summary ([facility]2) Date of admission: 01/09/17 Date of discharge: 01/10/17 Problem List: 1. Diverticulitis large intestine 2. Atrial fibrillation with RVR 3. Diarrhea 4. Type 2 diabetes mellitus 5. HTN (hypertension) History of present illness: Ms Connolly is an 81 year old female with a history of atrial fib, Type2 DM, HTN, Diverticulosis, Sphincter of Oddi Dysfunction and Depression who presented to [facility] ER for evaluation after experiencing diarrhea for 1 week and abdominal pain for 5 days. She stated the pain became severe and she could not wait for an office visit. She denied fever, nausea and vomiting. She continued with diarrhea for about 1 week; She did not note any blood. She had continued to try and eat. She was treated for a bronchitis with amoxicillin 01/02/17. The cough had resolved. A CT of the abdomen in the ER revealed diverticulitis. She was admitted and started on IVF and Flagyl and Levaquin. Exam on admission: General appearance: alert, active, no acute distress Eyes: anicteric, pupils reactive to light ENT: mucous membranes moist, pharynx normal Neck: non-tender, no carotid bruit, full range of motion, supple, lymphadenopathy (absent), thyroid (normal) Cardiovascular: regular rate & rhythm Respiratory: clear to auscultation (bilat anterior and posterior) ABD: soft, bowel sounds present (all quads), mildly tender in all lower quads Extremities: full range of motion, no peripheral edema, no calf tenderness Hospital Course: The patient improved quickly and was stable to be discharged home on oral abx. Will f/u in the office of [facility]. Discharge medications: Stop taking the following medications: AMOXICILLIN (Amoxicillin 875MG Tab) 875 MG TABLET ORAL TWICE A DAY Qty = 14 Continue taking these medications: Furosemide (Lasix 20MG) 20 MG TABLET 10 MILLIGRAM ORAL DAILY Simvastatin (Simvastatin) 20 MG TABLET 20 MILLIGRAM ORAL AT BEDTIME NIGHTLY Loratadine (Claritin 10MG) 10 MG TABLET 10 MILLIGRAM ORAL DAILY Aspirin (Aspirin) 81 MG TAB.CHEW 81 MILLIGRAM ORAL DAILY CYANOCOBALAMIN (VITAMIN B-12) (Vitamin B-12) 1,000 MCG TABLET.ER 2,000 MICROGRAM ORAL AT BEDTIME NIGHTLY NIFEDIPINE (Nifedipine ER) 30 MG TABLET.ER 30 MILLIGRAM ORAL AT BEDTIME NIGHTLY Canagliflozin (Invokana) 100 MG TABLET 100 MILLIGRAM ORAL DAILY Qty = 30 Metformin HCL (Metformin) 500 MG TABLET 1,000 MILLIGRAM ORAL TWICE A DAY WARFARIN SOD (Warfarin 5MG) 5 MG TABLET 5 MILLIGRAM ORAL 3 DAYS/WEEK Instructions: 3 DAYS A WEEK METOPROLOL SUCCINATE XL (Metoprolol Succinate) 100 MG TAB.ER.24H 100 MILLIGRAM ORAL DAILY Sertraline Hydrochloride (Sertraline 100MG) 100 MG TABLET 100 MILLIGRAM ORAL DAILY Qty = 30 Lansoprazole (Lansoprazole) 30 MG CAPSULE.DR 30 MILLIGRAM ORAL DAILY CALCIUM CARBONATE/VITAMIN D3 (Calcium 500 + Vit D 400 Tablet) 1 EACH TABLET 1 TABLET ORAL TWICE A DAY Vitamin E (Vitamin E) 400 UNIT CAPSULE 400 INT. UNITS ORAL DAILY CHOLECALCIFEROL (VITAMIN D3) (Vitamin D3) 1,000 UNIT TABLET 1,000 INT. UNITS ORAL DAILY Multivitamin/Iron/Folic Acid (Centrum Adults Tablet) 1 EACH TABLET 1 EACH ORAL DAILY WARFARIN SOD (Warfarin 5MG) 5 MG TABLET 7.5 MILLIGRAM ORAL 4 DAYS/WEEK Instructions: 4 DAYS/WEEK Start taking the following new medications: Levofloxacin (Levaquin 500MG) 500 MG TABLET 500 MILLIGRAM ORAL DAILY Qty = 7 No Refills Metronidazole (Metronidazole) 500 MG TABLET 500 MILLIGRAM ORAL THREE TIMES A DAY Qty = 21 No Refills TRAMADOL HCL (Tramadol) 50 MG TABLET 50 MILLIGRAM ORAL EVERY 4 HOURS NEEDED as needed for MODERATE PAIN Qty = 15 No Refills Disposition: F/U with: Baldo Llamas MD Follow up: 3 DAYS Activity: Cont Current activity Diet: Continue same diet Discharge to: HOME Agency needed? N at 1402
== END 2017-01-10 11:03 | disposition home or self-care (01) | DRG 392 ==
LOC: ER 20:49 → 2ND 23:09 → ER 23:09 → 2ND 23:15
PROVIDERS: Emergency Medicine
DX: K57.32 Diverticulitis of large intestine without perforation or abscess without bleeding (principal); I48.2 Chronic atrial fibrillation; E11.9 Type 2 diabetes mellitus without complications; Z79.01 Long term (current) use of anticoagulants; I10 Essential (primary) hypertension
CPT/HCPCS: J1956; J2405

== ENCOUNTER 2017-01-12 00:51 | Inpatient (IN) | payer MEDICARE ==
[~2017-01-12] VITALS: Ht 162.6 cm; Wt 79.9 kg
[2017-01-12] VITALS (81 sets, daily range): BP systolic 49–191; BP diastolic 18–115
[~2017-01-12 00:51] MED LIST changes: +AMOXICILLIN875 MG PO; +CENTRUM ADULTS1 EACH PO; +LANSOPRAZOLE30 MG PO; +LEVAQUIN500 MG PO; +METOPROLOL SUC100 M1 PO; +METRONIDAZOLE500 M2 PO; +NATURAL E400 IU PO; +NATURAL OYSTER1 TAB PO; +SERTRALINE 100100 MG PO; +TRAMADOL50 M1 PO; +VITAMIN D1000 IU PO; +WARFARIN SODIU2.5 MG PO
--- NOTE | 2017-01-12 01:13 | Emergency Room Report ---
History of Present Illness Time Seen by [id number] Presenting Problem in Triage Pt arrived:Walked Presenting Problem:C/O EPIGASTRIC PAIN. STATES SHE WAS HER AN INPATIENT ON FOR DIVERTICULITIS. TAKING LEVAQUIN AND WAS AFRAID AFTER READING SIDE EFFECTS. HX OF A FIB. 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 N Clinical Suspician of Infection? Y Mental Status: 1 - Regular (Normal Baseline) Sepsis Risk:Severe Sepsis Risk Have you (or family members/close friends) recently traveled outside the [place]? N If Yes, where/when: Have you had exposure to infectious disease within the past month? N TB? Other? Specify: Source patient, RN notes reviewed, family, old records Exam Limitations no limitations Comment pt with recent admit for diverticulitis and was doing ok and dev palpatations Cardiac Chest Pain Chest pain indicative of cardiac No Timing/Duration this evening Severity moderate ALLERGIES Coded Allergies: No Known Allergies (04/19/16) Home Medications Active Scripts Levofloxacin (Levaquin 500MG) 500 MG PO DAILY #7 TAB Prov: 01/10/17 Metronidazole 500 MG PO TID #21 TAB Prov: 01/10/17 TRAMADOL HCL (Tramadol) 50 MG PO Q4HP PRN MODERATE PAIN #15 TAB Prov: 01/10/17 Reported Medications Metformin HCL (Metformin) 1,000 MG PO BID Lansoprazole (Lansoprazole) 30 MG PO DAILY CALCIUM CARBONATE/VITAMIN D3 (Calcium 500 + Vit D 400 Tablet) 1 TAB PO BID Vitamin E 400 IUNITS PO DAILY CHOLECALCIFEROL (VITAMIN D3) (Vitamin D3) 1,000 IUNITS PO DAILY Furosemide (Lasix 20MG) 10 MG PO DAILY WARFARIN SOD (Warfarin 5MG) 5 MG PO 3 DAYS/WEEK Multivitamin/Iron/Folic Acid (Centrum Adults Tablet) 1 EACH PO DAILY WARFARIN SOD (Warfarin 5MG) 7.5 MG PO 4 DAYS/WEEK Simvastatin 20 MG PO QHS Loratadine (Claritin 10MG) 10 MG PO DAILY Aspirin 81 MG PO DAILY CYANOCOBALAMIN (VITAMIN B-12) (Vitamin B-12) 2,000 MCG PO QHS NIFEDIPINE (Nifedipine ER) 30 MG PO QHS Canagliflozin (Invokana) 100 MG PO DAILY #30 METOPROLOL SUCCINATE XL (Metoprolol Succinate) 100 MG PO DAILY Sertraline Hydrochloride (Sertraline 100MG) 100 MG PO DAILY #30 Discontinued Reported Medications AMOXICILLIN (Amoxicillin 875MG Tab) 875 MG PO BID #14 DC: 01/10/17 0824 History Medical History General CAD? No Angina: No ID: No Hypertension? Yes Hyperlipidemia? Yes CHF? No DVT? No PE? No COPD? No Asthma? No Anemia? No GERD? No Gastric ulcers? No GI Bleed? No Hernia? No Thyroid Problems? No Hypothyroidism? No CVA? No Seizures? No Diabetes? Yes Insulin Dependent: No Insulin Pump: No Home FSBS? Yes Renal Insuffiency? No End Stage Renal Disease? No UTI? No Stones? No BPH? No GB Disease: No Nephritic Syndrome? No Asplenia? No Hepatitis? No Sickle Cell Disease? No Arthritis? No Migraines? No Cataracts? No Glaucoma? No MRSA? No HIV? No TB? No Anxiety? No Depression? Yes Cancer? No More? Yes Additional hx: Sphincter of Oddi Dysfunction Diverticulosis, A FIB Allergic Rhinitis Immunization Hx DT/Tetanus 1-4 Years Ago Flu [id number] Pneumonia Received In Past Surgical Hx Previous Surgery?Y X 3 RIGHT KNEE APPENDECTOMY LEFT FOOT COLONOSCOPY Family History Family Hx Diabetes No CAD Yes Hypertension Yes Hyperlipidemia Yes Cancer No TB No Social History Smoking Hx Smoker: Former Smoker Tobacco: No Packs/day N/A Alcohol Alcohol: No Drugs none Review of Systems All Other Systems Reviewed and Negative Constitutional denies fever Eyes denies drainage ENT denies: ear discharge, epistaxis, throat pain. Respiratory denies cough, denies shortness of breath, denies wheezing Cardiovascular see HPI, chest pain, palpitations, denies syncope Gastrointestinal denies abdominal pain, denies diarrhea, denies vomiting Genitourinary denies: dysuria, frequency, hesitancy, hematuria. Musculoskeletal denies back pain, denies joint pain, denies joint swelling, denies neck pain Skin denies rash Psychiatric/Neurological denies headache, denies seizure Physical Exam Vital Signs Vital Signs Date Time Temp Pulse Resp B/P Pulse O2 O2 Flow FiO2 Ox Delivery Rate 01/12 020 97.8 122 20 136/98 92 01/12 0055 97.8 135 24 148/98 93 - WBC >12,000 or <4,000 or 10% bands? 2 or more SIRS Criteria Met? B/P:136/98 MAP:114 Creatinine >2.0? UA output<0.5ml/kg/hr for 2 hrs? Platelet count >100,000? Lactate >2.0mmol/1? INR >1.2 or PTT > than 60 sec? Evidence of Organ Dysfunction? Provider documented clinical suspician of infection? Y Sepsis Criteria Count: 3 Sepsis Risk: Severe Sepsis Risk General Appearance no apparent distress Eye Exam - bilateral eye PERRL, bilateral eye EOMI Ear, Nose, Throat normal ENT inspection Neck supple Respiratory Status No: respiratory distress. Lung Sounds bilateral: lungs clear. 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 No Results/Orders Laboratory Tests 01/12/17109: Lactic Acid 1.6 01/12/17109: Sodium 140, Potassium 3.2 L, Chloride 103, Carbon Dioxide 27, BUN 12, Creatinine 0.9, Estimated Creat Clear 54, Estimated GFR (MDRD) 60, Glucose 140 H, Calcium 9.2, Total Bilirubin 0.4, AST 26, ALT 23, Alkaline Phosphatase 64, Creatine Kinase 81, CK-MB (CK-2) Rel Index 2.2, CK and CKMB Interp 1.8, Troponin I 0.34 H, Total Protein 7.4, Albumin 3.5, Globulin 3.9 H, Albumin/Globulin Ratio 0.9 L, Amylase 28, Lipase 170, PT 16.2 H, INR 1.49 H, WBC 7.7, RBC 4.42 , Hgb 12.8, Hct 38.7, MCV 87.5, RDW 14.0, Plt Count 320, MPV 7.2 L, Gran % 77.2 , Gran # 6.0, Lymphocytes % 15.9, Monocytes % 5.1, Eosinophils % 1.2, Basophils % 0.6, Lymphocytes # 1.2, Monocytes # 0.4, Eosinophils # 0.1, Basophils # 0.1, PUBS MCHC 33.0, MCH 28.9 Current Medication Orders Sig/Chelita Start time Last Medication Dose Route Stop Time Status Admin Diltiazem HCl 10 MG ONCE ONE 01/12 245 DC IV 01/12 024 Diltiazem HCl 100 MG ONCE ONE 01/12 245 AC Sodium Chloride 100 ML IV 01/12 2244 Morphine Sulfate 0 .STK-MED ONE 01/12 024 DC .ROUTE Sodium Chloride 100 ML .STK-MED ONE 01/12 023 DC IV Diltiazem HCl 0 .STK-MED ONE 01/12 0234 DC IV Aspirin 325 MG ONCE ONE 01/12 023 DC PO 01/12 0231 Morphine Sulfate 2 MG ONCE ONE 01/12 0230 DC IV 01/12 0231 Nitroglycerin 1 IN ONCE ONE 01/12 0230 DC TP 01/12 0231 Metoprolol Tartrate 2.5 MG ONCE ONE 01/12 0200 DC 01/12 IV 01/12 0201 0158 Sodium Chloride 1,000 ML .Q10H 01/12 0200 AC 01/12 IV 01/12 1350 0156 Sodium Chloride 10 ML PRN PRN 01/12 0200 AC IV 01/13 0150 Sodium Chloride 1,000 ML .STK-MED ONE 01/12 0154 DC IV Metoclopramide HCl 0 .STK-MED ONE 01/12 0153 DC .ROUTE Sodium Chloride 10 ML PRN PRN 01/12 0115 AC IV 01/13 0108 Orders Procedure Date/time Status Decision to admit 01/13 240 Active PROTHROMBIN TIME 01/12 013 Complete CHEST-PORTABLE 01/12 133 Active 12 LEAD [facility]) 01/13 108 Active ELECTROCARDIOGRAM REQUEST 01/13 108 Active IV SALINE LOCK 01/13 108 Active TEST DRIVER 01/13 108 Active CULTURE, BLOOD 01/13 108 Active LIPASE 12/01 0108 Complete LACTIC ACID 01/13 108 Complete CBC WITH AUTO DIFF 01/13 108 Complete CARDIAC ENZYMES 01/13 108 Complete CHEM 12 PROFILE 01/13 108 Complete AMYLASE 01/13 108 Complete CM/EKG 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 ST/Twave chgs XRAY/CT/US XRAY/CT/US XRAY chest XR interpretation by reviewed by me Xray Results abnormal (cm/vascular congestion) ORION Score for N-Stemi/Angina ORION N-STEMI SCORE ORION N-STEMI SCORE Response Value Age of patient 65 yrs or more 1 Number of risk factors for CAD Presence of 3 or more 1 Prior coronary artery stenosis (seen in angiography) Less than 50% 0 ST-Segment deviation on ECG (>1 min) Absent 0 Prior aspirin intake No ASA in the last 7 days 0 Severe anginal chest pain No or 1 episode in 24h 0 Elevated cardiac markers(CK-MB or troponin) Present 1 Total 3 Risk Stratification 3-4= Medium Risk Patients Departure Departure Time of Disposition 0231 Disposition Still a Patient Clinical Impression Primary Impression: Atrial fibrillation with rapid ventricular response Secondary Impressions: Chest pain Qualifiers: Chest pain type: unspecified Qualified Code: R07.9 - Chest pain, unspecified Elevated troponin Condition STABLE Referrals Baldo Llamas MD (Family) discussed with dr briggs and dr jackson ED Critical Care Critical Care No at 0248
[2017-01-12 01:22] LABS: HEMOGLOBIN 12.8 g/dL (12.2-16.2); LYMPH # 1.2 K/mm3 (0.7-4.5); LYMPH % 15.9 % (10-50.0)
--- OUTSIDE RECORDS SUMMARY | 2017-01-12 02:46 | External Medical Summary Rpt | CCD ---
Demographics Preferred Language Tajik Marital Status Unknown [employer] Affiliation Unknown Race Unknown Ethnic Group Unknown Author Author , [facility] Organization [facility] Address Unknown Phone Immunization Unable to retrieve immunization data due to connection failure with Immunization Registry. Please try again later.
--- OUTSIDE RECORDS SUMMARY | 2017-01-12 02:46 | External Medical Summary Rpt | CCD ---
Demographics Preferred Language Kiswahili Marital Status Unknown [employer] Affiliation Unknown Race Unknown Ethnic Group Unknown Author Author , [facility] Organization [facility] Address Unknown Phone Immunization Unable to retrieve immunization data due to connection failure with Immunization Registry. Please try again later.
--- OUTSIDE RECORDS SUMMARY | 2017-01-12 02:46 | External Medical Summary Rpt | CCD ---
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 complet ed 017 0 ed blood 01:10 eosinop hils/10 0 leukocy t Blood = 6.0 1.8-7.8 complet granulo 017 K/mm3 ed cytes 01:10 automat ed count (numb Granulo = 77.2 37.0-80 complet cyte 017 % .0 ed percent 01:10 age Blood = 38.7 37.0-47 complet hematoc 017 % .0 ed rit 01:10 (volume fractio n) Blood = 12.8 12.2-16 complet hemoglo 017 g/dL .2 ed bin 01:10 measure ment (mass/v olum Absolut = 1.2 0.7-4.5 complet e 017 K/mm3 ed lymphoc 01:10 yte count Lymphoc = 15.9 10-50.0 complet yte 017 % ed count, 01:10 blood, automat ed Automat = 33.0 31.8-35 complet ed 017 g/dl .4 ed erythro 01:10 cyte mean corpusc ular h Automat = 87.5 82.2-97 complet ed 017 fl .8 ed erythro 01:10 cyte mean corpusc ular v Absolut = 0.4 0.1-1.0 complet e 017 K/mm3 ed monocyt 01:10 e count [place] % = 5.1 % 1.7-9.3 complet 017 ed 01:10 Automat = 7.2 7.4-10. complet ed 017 fl 4 ed blood 01:10 platele t mean volume mandy Blood = 320 142-424 complet platele 017 K/mm3 ed t count 01:10 Red = 4.42 4.2-5.4 complet blood 017 M/mm3 ed cell 01:10 count Automat = 14.0 11.5-17 complet ed 017 % .5 ed erythro 01:10 cyte distrib ution width Blood = 7.7 4.8-10. complet leukocy 017 K/MM3 8 ed [place] 01:10 count (number /volume ) Mean = 28.9 27-31.2 complet corpusc 017 pg ed ular 01:10 hemoglo bin (MCH) determ Amylase ser/plas (01-12-2017 01:10) Amylase = 28 25-115 complet 017 U/L ed ser/sierra 01:10 s Cardiac enzymes (01-12-2017 01:10) Serum = 2.2 0-4.0 complet or 017 U/L ed plasma 01:10 creatin e kinase MB (CK-M Serum = 1.8 0.0-3.6 complet or 017 ng/mL ed plasma 01:10 creatin e kinase MB measu Serum = 81 26-192 complet or 017 U/L ed plasma 01:10 creatin e kinase measure m Serum = 0.34 0.00-0. complet or 017 ng/mL 06 ed plasma 01:10 troponi n i.cardi ac measu Comment: 0.04 - 0.49 IS AN INDETERMINANT ZONE Comment: And can be consistent with the following diseases: Comment: Comment: Trauma Critically ill patients [place] >30% TBSA Comment: CHF Hypothyroidism Amyloidosis Comment: Hypertension Myocarditis Sepsis Comment: Hypotension Rhabdomyolysis Vital exhaust. Comment: Postop surgery Pulmonary embolism CVA Comment: Renal failure Acute neurological disease Atrial fib. Comprehensive metabolic panel (01-12-2017 01:10) Serum = 3.5 3.4-5.0 complet or 017 gm/dL ed plasma 01:10 albumin measure ment (mas Serum = 64 46-116 complet or 017 U/L ed plasma 01:10 alkalin e phospha tase mandy Serum = 0.4 0.2-1.0 complet or 017 mg/dL ed plasma 01:10 total bilirub in measure m Serum = 12 7-18 complet or 017 mg/dL ed plasma 01:10 urea nitroge n measure men Serum = 9.2 8.5-10. complet or 017 mg/dL 1 ed plasma 01:10 calcium measure ment (mas Serum = 103 98-107 complet or 017 mmoL/L ed plasma 01:10 chlorid e measure ment (mo Carbon = 27 21.0-32 complet dioxide 017 mmoL/L .0 ed 01:10 measure ment Serum = 0.9 0.55-1. complet or 017 mg/dL 02 ed plasma 01:10 creatin ine measure ment ( Estimat = 54 50-200 complet ion of 017 ML/MIN ed creatin 01:10 ine renal clearan ce Estimat = 60 59- complet ed 017 ML/MIN ed glomeru 01:10 lar filtrat ion rate (GF Comment: REFERENCE RANGE: >60 ML/MIN/1.73 SQUARE METERS Comment: If this patient is -Syrian, then multiply the Comment: result by 1.210. Serum = 3.9 1.3-3.2 complet globuli 017 gm/dL ed n 01:10 measure ment (mass/v olume) Serum = 140 74-106 complet or 017 mg/dL ed plasma 01:10 glucose measure ment (mas Serum = 3.2 3.5-5.1 complet potassi 017 mmoL/L ed um 01:10 measure ment Serum = 140 136-145 complet sodium 017 mmoL/L ed measure 01:10 ment Serum = 26 15-37 complet or 017 U/L ed plasma 01:10 asparta te aminotr ansfera ALT = 23 12-78 complet (SGPT) 017 U/L ed ser/sierra 01:10 s Protein = 7.4 6.4-8.2 complet total 017 gm/dL ed ser/sierra 01:10 s Serum = 0.9 1.1-1.8 complet or 017 ed plasma 01:10 albumin /globul in mass ra Lipase measurement (01-12-2017 01:10) Lipase = 170 73-393 complet measure 017 U/L ed ment 01:10 Blood lactic acid measurement (moles/vol (01-12-2017 01:10) Blood = 1.6 0.4-2.0 complet lactic 017 mmol/L ed acid 01:10 measure ment (moles/ vol Whole blood INR measurement (01-12-2017 01:10) Comment: IS PATIENT ON ANTICOAGULANTS? Y Comment: LIST ANTICOAGULANTS: Comment: COUMADIN Whole = 1.49 0.9-1.1 complet blood 017 ed INR 01:10 measure ment Comment: INDICATION INR RANGE Comment: Comment: THERAPY FOR DVT, PE, ATRIAL FIB; 2.0 - 3.0 Comment: PROPHYLAXIS FOR VTE Comment: Comment: THERAPY FOR MECHANICAL HEART 2.5 - 3.5 Comment: VALVE; PREVENTION OF SYSTEMIC Comment: EMBOLISM SECONDARY TO AMI Prothro = 16.2 9.4-11. complet mbin 017 SECONDS 8 ed time 01:10 (PT) in platele t poor p Whole blood INR measurement (01-10-2017 06:12) Comment: IS PATIENT ON ANTICOAGULANTS? Y Comment: LIST ANTICOAGULANTS: Comment: COUMADIN Comment: PTT RESULTS MUST BE CALLED IF PT ON HEPARIN!!! Y Prothro = 24.9 9.4-11. complet mbin 017 SECONDS 8 ed time 06:12 (PT) in platele t poor p Whole = 2.29 0.9-1.1 complet blood 017 ed INR 06:12 measure ment Comment: INDICATION INR RANGE Comment: Comment: THERAPY FOR DVT, PE, ATRIAL FIB; 2.0 - 3.0 Comment: PROPHYLAXIS FOR VTE Comment: Comment: THERAPY FOR MECHANICAL HEART 2.5 - 3.5 Comment: VALVE; PREVENTION OF SYSTEMIC Comment: EMBOLISM SECONDARY TO AMI Glucose capillary blood glucometer (01-10-2017 06:06) Glucose = 145 70-110 complet 017 mg/dl ed capilla 06:[address] Glucose capillary blood glucometer (01-09-2017 20:20) Glucose = 141 70-110 complet 017 mg/dl ed capilla 20:[address] Glucose capillary blood glucometer (01-09-2017 16:19) Glucose = 140 70-110 complet 017 mg/dl ed capilla 16:[address] Glucose capillary blood glucometer (01-09-2017 11:38) Glucose = 125 70-110 complet 017 mg/dl ed capilla 11:[address] CBC w auto diff (01-09-2017 06:42) Automat = 13.9 11.5-17 complet ed 017 % .5 ed erythro 06:42 cyte distrib ution width Red = 4.35 4.2-5.4 complet blood 017 M/mm3 ed cell 06:42 count Blood = 291 142-424 complet platele 017 K/mm3 ed t count 06:42 Automat = 7.3 7.4-10. complet ed 017 fl 4 ed blood 06:42 platele t mean volume mandy [place] % = 5.9 % 1.7-9.3 complet 017 ed 06:42 Absolut = 0.4 0.1-1.0 complet e 017 K/mm3 ed monocyt 06:42 e count Automat = 87.7 82.2-97 complet ed 017 fl .8 ed erythro 06:42 cyte mean corpusc ular v Automat = 31.9 31.8-35 complet ed 017 g/dl .4 ed erythro 06:42 cyte mean corpusc ular h Mean = 28.0 27-31.2 complet corpusc 017 pg ed ular 06:42 hemoglo bin (MCH) determ Lymphoc = 21.0 10-50.0 complet yte 017 % ed count, 06:42 blood, automat ed Absolut = 1.5 0.7-4.5 complet e 017 K/mm3 ed lymphoc 06:42 yte count Blood = 12.1 12.2-16 complet hemoglo 017 g/dL .2 ed bin 06:42 measure ment (mass/v olum Blood = 38.2 37.0-47 complet hematoc 017 % .0 ed rit 06:42 (volume fractio n) Granulo = 70.6 37.0-80 complet cyte 017 % .0 ed percent 06:42 age Blood = 4.9 1.8-7.8 complet granulo 017 K/mm3 ed cytes 06:42 automat ed count (numb Automat = 1.7 % 0.1-12. complet ed 017 0 ed blood 06:42 eosinop hils/10 0 leukocy t Automat = 0.1 0.0-0.4 complet ed 017 K/mm3 ed blood 06:42 eosinop hil count Baso % = 0.8 % 0.1-2.0 complet 017 ed 06:42 Automat = 0.1 0-0.2 complet ed 017 K/MM3 ed blood 06:42 basophi l count (count/ vo Blood = 6.9 4.8-10. complet leukocy 017 K/MM3 8 ed [place] 06:42 count (number /volume ) Basic metabolic panel (01-09-2017 06:42) Serum = 143 136-145 complet sodium 017 mmoL/L ed measure 06:42 ment Serum = 3.6 3.5-5.1 complet potassi 017 mmoL/L ed um 06:42 measure ment Serum = 156 74-106 complet or 017 mg/dL ed plasma 06:42 glucose measure ment (mas Estimat = 60 59- complet ed 017 ML/MIN ed glomeru 06:42 lar filtrat ion rate (GF Comment: REFERENCE RANGE: >60 ML/MIN/1.73 SQUARE METERS Comment: If this patient is -Syrian, then multiply the Comment: result by 1.210. Estimat = 50 50-200 complet ion of 017 ML/MIN ed creatin 06:42 ine renal clearan ce Serum = 0.9 0.55-1. complet or 017 mg/dL 02 ed plasma 06:42 creatin ine measure ment ( Carbon = 28 21.0-32 complet dioxide 017 mmoL/L .0 ed 06:42 measure ment Serum = 107 98-107 complet or 017 mmoL/L ed plasma 06:42 chlorid e measure ment (mo Serum = 9.1 8.5-10. complet or 017 mg/dL 1 ed plasma 06:42 calcium measure ment (mas Serum = 13 7-18 complet or 017 mg/dL ed plasma 06:42 urea nitroge n measure men Glucose capillary blood glucometer (01-09-2017 06:06) Glucose = 150 70-110 complet 017 mg/dl ed capilla 06:[address] Urinalysis with microscopy (01-08-2017 21:05) Urine = NEG complet protein 017 NEGATIV ed 21:05 E mg/dL measure ment by automat ed t Urine = 6.0 5.0-8.5 complet pH 017 ed 21:05 Urine NEGATIV NEG complet nitrite 017 E ed 21:05 NEGATIV detecti E L on by test strip Mucus 1+ 1+ L OCC complet detecti 017 ed on in 21:05 urine sedimen t by lig Mucus NEGATIV NEG complet detecti 017 E ed on in 21:05 NEGATIV urine E L sedimen t by lig Urine NEGATIV NEG complet ketones 017 E ed 21:05 NEGATIV detecti E L on by mg/dL automat ed [place] Glucose 3 + NEG complet ur 017 ed test 21:05 strip Urine YELLOW YELLOW complet color 017 YELLOW ed 21:05 L Urine NEGATIV NEG complet blood 017 E ed detecti 21:05 NEGATIV on E L Urine NEGATIV NEG complet total 017 E ed bilirub 21:05 NEGATIV in E L detecti on by test Bacteri 1+ 1+ L O complet a 017 ed detecti 21:05 on in urine sedimen t by Urine CLEAR CLEAR complet appeara 017 CLEAR L ed nce 21:05 determi nation Urine 3 - 5 O complet leukocy 017 wbc/hpf ed [place] 21:05 count (number /volume ) Urine 0.2 0.2 NEG complet urobili 017 L ed nogen 21:05 E.U./dL detecti on by test str [place] 3-5 3-5 0-5 complet s 017 L ed epithel 21:05 #/hpf ial cells detecti on in u Urine = 1.010 1.005-1 complet specifi 017 .030 ed c 21:05 gravity measure ment Erythro 3-5 3-5 0 complet cytes 017 L ed detecti 21:05 rbc/hpf on in urine sedimen t Amylase ser/plas (01-08-2017 21:00) Amylase = 40 25-115 complet 017 U/L ed ser/sierra 21:00 s Comprehensive metabolic panel (01-08-2017 21:00) Serum = 3.8 3.4-5.0 complet or 017 gm/dL ed plasma 21:00 albumin measure ment (mas Serum = 75 46-116 complet or 017 U/L ed plasma 21:00 alkalin e phospha tase mandy Serum 11-27-2 = 0.3 0.2-1.0 complet or 017 mg/dL ed plasma 21:00 total bilirub in measure m Serum 01-08-2 = 14 7-18 complet or 017 mg/dL ed plasma 21:00 urea nitroge n measure men Serum 01-08-2 = 10.0 8.5-10. complet or 017 mg/dL 1 ed plasma 21:00 calcium measure ment (mas Serum 2 = 101 98-107 complet or 017 mmoL/L ed plasma 21:00 chlorid e measure ment (mo Carbon 2 = 26 21.0-32 complet dioxide 017 mmoL/L .0 ed 21:00 measure ment Serum 2 = 1.1 0.55-1. complet or 017 mg/dL 02 ed plasma 21:00 creatin ine measure ment ( Estimat 2 = 44 50-200 complet ion of 017 ML/MIN ed creatin 21:00 ine renal clearan ce Estimat = 48 59- complet ed 017 ML/MIN ed glomeru 21:00 lar filtrat ion rate (GF Comment: REFERENCE RANGE: >60 ML/MIN/1.73 SQUARE METERS Comment: If this patient is -Syrian, then multiply the Comment: result by 1.210. Serum 2 = 4.4 1.3-3.2 complet globuli 017 gm/dL ed n 21:00 measure ment (mass/v olume) Serum 2 = 229 74-106 complet or 017 mg/dL ed plasma 21:00 glucose measure ment (mas Serum 2 = 3.5 3.5-5.1 complet potassi 017 mmoL/L ed um 21:00 measure ment Serum 2 = 139 136-145 complet sodium 017 mmoL/L ed measure 21:00 ment Serum 2 = 12 15-37 complet or 017 U/L ed plasma 21:00 asparta te aminotr ansfera ALT = 20 12-78 complet (SGPT) 017 U/L ed ser/sierra 21:00 s Protein 2 = 8.2 6.4-8.2 complet total 017 gm/dL ed ser/sierra 21:00 s Serum 2 = 0.9 1.1-1.8 complet or 017 ed plasma 21:00 albumin /globul in mass ra Lipase measurement (01-08-2017 21:00) Lipase = 323 73-393 complet measure 017 U/L ed ment 21:00 CBC w auto diff (01-08-2017 21:00) Blood = 8.9 4.8-10. complet leukocy 017 K/MM3 8 ed [place] 21:00 count (number /volume ) Automat = 13.9 11.5-17 complet ed 017 % .5 ed erythro 21:00 cyte distrib ution width Red = 4.76 4.2-5.4 complet blood 017 M/mm3 ed cell 21:00 count Blood = 348 142-424 complet platele 017 K/mm3 ed t count 21:00 Automat = 7.6 7.4-10. complet ed 017 fl 4 ed blood 21:00 platele t mean volume mandy [place] % = 6.5 % 1.7-9.3 complet 017 ed 21:00 Absolut = 0.6 0.1-1.0 complet e 017 K/mm3 ed monocyt 21:00 e count Automat = 87.9 82.2-97 complet ed 017 fl .8 ed erythro 21:00 cyte mean corpusc ular v Automat = 33.0 31.8-35 complet ed 017 g/dl .4 ed erythro 21:00 cyte mean corpusc ular h Mean = 29.0 27-31.2 complet corpusc 017 pg ed ular 21:00 hemoglo bin (MCH) determ Lymphoc = 23.2 10-50.0 complet yte 017 % ed count, 21:00 blood, automat ed Absolut = 2.1 0.7-4.5 complet e 017 K/mm3 ed lymphoc 21:00 yte count Blood = 13.8 12.2-16 complet hemoglo 017 g/dL .2 ed bin 21:00 measure ment (mass/v olum Blood = 41.9 37.0-47 complet hematoc 017 % .0 ed rit 21:00 (volume fractio n) Granulo = 67.8 37.0-80 complet cyte 017 % .0 ed percent 21:00 age Blood = 6.0 1.8-7.8 complet granulo 017 K/mm3 ed cytes 21:00 automat ed count (numb Automat = 1.7 % 0.1-12. complet ed 017 0 ed blood 21:00 eosinop hils/10 0 leukocy t Automat = 0.2 0.0-0.4 complet ed 017 K/mm3 ed blood 21:00 eosinop hil count Baso % = 0.8 % 0.1-2.0 complet 017 ed 21:00 Automat = 0.1 0-0.2 complet ed 017 K/MM3 ed blood 21:00 basophi l count (count/ vo Whole blood INR measurement (01-08-2017 21:00) Comment: IS PATIENT ON ANTICOAGULANTS? Y Comment: LIST ANTICOAGULANTS: Comment: COUMADIN Prothro = 18.7 9.4-11. complet mbin 017 SECONDS 8 ed time 21:00 (PT) in platele t poor p Whole = 1.72 0.9-1.1 complet blood 017 ed INR 21:00 measure ment Comment: INDICATION INR RANGE Comment: Comment: THERAPY FOR DVT, PE, ATRIAL FIB; 2.0 - 3.0 Comment: PROPHYLAXIS FOR VTE Comment: Comment: THERAPY FOR MECHANICAL HEART 2.5 - 3.5 Comment: VALVE; PREVENTION OF SYSTEMIC Comment: EMBOLISM SECONDARY TO AMI
--- OUTSIDE RECORDS SUMMARY | 2017-01-12 02:46 | External Medical Summary Rpt | CCD ---
Author Author , THEA SIDHU Address Unknown Phone [email or web address] Purpose Continuity of Care Document - 01-08-2017 [...] 017 K/mm3 ed monocyt 01:10 e count [place] % = 5.1 % 1.7-9.3 complet 017 [...] SQUARE METERS Comment: If this patient is -[place], then multiply the Comment: result by 1.210. [...] blood 06:42 platele t mean volume mandy [place] % = 5.9 % 1.7-9.3 complet 017 [...] SQUARE METERS Comment: If this patient is -[place], then multiply the Comment: result by 1.210. [...] SQUARE METERS Comment: If this patient is -[place], then multiply the Comment: result by 1.210. [...] blood 21:00 platele t mean volume mandy [place] % = 6.5 % 1.7-9.3 complet 017 [...]
--- NOTE | 2017-01-12 05:51 | RADIOLOGY REPORT PS360 ---
CHEST-PORTABLE HISTORY: C/O EPIGASTRIC PAIN ORDERING PHYSICIAN: Pablo Hannah MD PATIENT AGE: 81 years COMPARISON: 07/03/2016 FINDINGS: There is cardiomegaly with pulmonary venous congestion and interstitial edema consistent with congestive heart failure. Patchy alveolar disease is present in the right upper lobe and may be due to an area of atelectasis or infiltrate. No large effusions. No acute bony anomalies. IMPRESSION: CHF with a small area of atelectasis or infiltrate in the right upper lobe.
--- NOTE | 2017-01-12 07:43 | PHARMACY CLINIC NOTE ---
Patient Demographics Patient Demographics Admission date: 01/12/17 Date: 01/12/17 Time: 0743 Allergies Coded Allergies: No Known Allergies (04/19/16) HEIGHT- FT: 5 IN: 4.00 K.449 VTE General Information Labs: Laboratory Tests 01/12 0110 Coagulation PT (9.4 - 11.8 SECONDS) 16.2 H INR (0.9 - 1.1) 1.49 H Hematology Hgb (12.2 - 16.2 g/dL) 12.8 Hct (37.0 - 47.0 %) 38.7 Plt Count (142 - 424 K/mm3) 320 Disclaimer The following section includes nursing documentation that has been pulled in for pharmacy review. Patient's VTE score: 1 Patient's VTE Risk: VERY LOW RISK Clinical trial participant? No VTE prophylaxis NQF [id number] VTE prophylaxis ordered? Yes Type of prophylaxis/treatment: NANNETTE at 0743
[2017-01-12 07:44] LABS: LYMPH % 13.4 % (10-50.0)
[2017-01-12] MEDS ORDERED: METRONIDAZOLE500 M2 PO (07:47)
[2017-01-12] MEDS ORDERED: LEVAQUIN500 MG PO (07:48)
[2017-01-12] MEDS ORDERED: TRAMADOL 50MG T50 MG PO (07:49)
[2017-01-12 08:01] LABS: HEMOGLOBIN 11.6 g/dL (12.2-16.2)
--- NOTE | 2017-01-12 08:31 | HISTORY AND PHYSICAL REPORT ---
History and Physical ([facility]CA) Date of admission: 01/12/17 Chief complaint: heart pounding History: History of Present Illness: Ms. Connolly is an 81-year-old female who was just recently admitted and discharged after an episode of diverticulitis. She was sent home on Levaquin and flagyl. She states she had not eaten well since being discharged. Yesterday she began having strong heart palpitations. She states it was to the point that she felt like her heart was going to "beat out of her chest." She began having pain in the LEFT side of her chest and in her epigastric area, therefore she presented to the emergency room. She was found to be in atrial fibrillation with a rapid ventricular response. She was admitted and started on a Cardizem drip. Past Medical History: Medical History: CAD? No Angina: No [place]: No Hypertension? Yes Hyperlipidemia? Yes CHF? No DVT? No PE? No COPD? No Asthma? No Anemia? No GERD? No Gastric ulcers? No GI Bleed? No Hernia? No Thyroid Problems? No Hypothyroidism? No CVA? No Seizures? No Diabetes? Yes Insulin Dependent: No Insulin Pump: No Home FSBS? Yes Renal Insuffiency? No UTI? No Stones? No BPH? No GB Disease: No Nephritic Syndrome? No Asplenia? No Hepatitis? No Sickle Cell Disease? No Arthritis? No Migraines? No Cataracts? No Glaucoma? No MRSA? No HIV? No TB? No Anxiety? No Depression? Yes Cancer? No More? Yes Additional hx: 1. Sphincter of Oddi Dysfunction 2. Diverticulosis 3. A FIB 4. Allergic Rhinitis Surgical history: Previous Surgery?Y X 3 RIGHT KNEE APPENDECTOMY LEFT FOOT COLONOSCOPY Medications: Reported Medications Metformin HCL (Metformin) 1,000 MG PO BID CALCIUM CARBONATE/VITAMIN D3 (Calcium 500 + Vit D 400 Tablet) 1 TAB PO BID Vitamin E 400 IUNITS PO DAILY CHOLECALCIFEROL (VITAMIN D3) (Vitamin D3) 1,000 IUNITS PO DAILY Furosemide (Lasix 20MG) 10 MG PO DAILY Multivitamin/Iron/Folic Acid (Centrum Adults Tablet) 1 EACH PO DAILY WARFARIN SOD (Warfarin 5MG) 5 MG PO DAILY WARFARIN SOD (Warfarin 5MG) 2.5 MG PO 4 DAYS/WEEK Metronidazole 500 MG PO TID #21 TAB Levofloxacin (Levaquin 500MG) 500 MG PO DAILY #7 TAB Tramadol Hcl (Tramadol 50MG) 50 MG PO Q6HP PRN PAIN #15 Simvastatin 20 MG PO QHS Loratadine (Claritin 10MG) 10 MG PO DAILY Aspirin 81 MG PO DAILY NIFEDIPINE (Nifedipine ER) 30 MG PO QHS METOPROLOL SUCCINATE XL (Metoprolol Succinate) 100 MG PO DAILY Sertraline Hydrochloride (Sertraline 100MG) 100 MG PO DAILY #30 Discontinued Reported Medications AMOXICILLIN (Amoxicillin 875MG Tab) 875 MG PO BID #14 DC: 01/10/1724 Allergies: Coded Allergies: No Known Allergies (04/19/16) Family History: Family history: Postive for: CAD, HTN. Social History: Smoking Hx Tobacco: No Smoker: Former Smoker Type: Cigarettes Packs/day: < 1 Pack Are you exposed to second hand No Alcohol: Alcohol: No Hx of Drug Use: Drug Use? No Review of Systems: Constitutional Positive for: fatigue, lethargy, malaise, weak. ENT No: nasal congestion, sore throat. Cardiovascular Positive for: chest pain, palpitations. No: edema. Respiratory Positive for: shortness of air. No: productive cough (sputum), wheezing. GI Positive for: abdominal pain (epigastric), nausea. No: diarrhea, vomitting. (female) No: frequency, hematuria. Neurological Positive for: weakness. No: syncope. Musculoskeletal No: extremity pain, joint pain, myalgias. Physical Exam: Vital signs: 1ST Vital Signs Result Date Time Pulse Ox 93 01/12 55 B/P 148/98 01/12 55 Temp 97.8 01/12 55 Pulse 135 01/12 55 Resp 24 01/12 55 O2 Delivery ROOM AIR 01/12 033 O2 Flow Rate 2 01/12 0353 Exam: General appearance: alert, awake, appears nervous Eyes: EOM's w/normal ROM, PERRLA ENT: nose normal, pharynx normal, dry mucous membranes Neck: non-tender, full range of motion, supple Cardiovascular: irregular rate & rhythm Respiratory: clear to auscultation ABD: non-distended, normal bowel sounds, no rebound, soft, no guarding, ttp in the LUQ Extremities: no peripheral edema Musculoskeletal: equal muscle strength, motor intact, sensation intact Skin: normal color Neuro: normal mood/affect, oriented, speech clear Lab data: Labs: Laboratory Tests 01/12/17 0658: Sodium 141, Potassium 3.6, Chloride 105, Carbon Dioxide 30, BUN 11, Creatinine 1.0, Estimated Creat Clear 50, Estimated GFR (MDRD) 53 L, Glucose 181 H, Calcium 8.8, Troponin I 0.39 H, WBC 7.4, RBC 4.04 L, Hgb 11.6 L, Hct 35.6 L, MCV 88.0, RDW 13.9, Plt Count 290, MPV 7.3 L, Gran % 80.7 H, Gran # 6.0, Lymphocytes % 13.4, Monocytes % 4.9, Eosinophils % 0.3, Basophils % 0.6, Lymphocytes # 1.0, Monocytes # 0.4, Eosinophils # 0.0, Basophils # 0.1, PUBS MCHC 32.4, MCH 28.5 01/12/17 0630: POC Glucose 167 H 01/12/17 0110: Lactic Acid 1.6 01/12/17 0110: B-Natriuretic Peptide 461 H, TSH 4.30 H, Thyroxine (T4) 9.7 01/12/17 0110: Sodium 140, Potassium 3.2 L, Chloride 103, Carbon Dioxide 27, BUN 12, Creatinine 0.9, Estimated Creat Clear 54, Estimated GFR (MDRD) 60, Glucose 140 H, Calcium 9.2, Total Bilirubin 0.4, AST 26, ALT 23, Alkaline Phosphatase 64, Creatine Kinase 81, CK-MB (CK-2) Rel Index 2.2, CK and CKMB Interp 1.8, Troponin I 0.34 H, Total Protein 7.4, Albumin 3.5, Globulin 3.9 H, Albumin/Globulin Ratio 0.9 L, Amylase 28, Lipase 170, PT 16.2 H, INR 1.49 H, WBC 7.7, RBC 4.42 , Hgb 12.8, Hct 38.7, MCV 87.5, RDW 14.0, Plt Count 320, MPV 7.2 L, Gran % 77.2 , Gran # 6.0, Lymphocytes % 15.9, Monocytes % 5.1, Eosinophils % 1.2, Basophils % 0.6, Lymphocytes # 1.2, Monocytes # 0.4, Eosinophils # 0.1, Basophils # 0.1, PUBS MCHC 33.0, MCH 28.9 Microbiology 01/12 110 BLOOD: Anaerobic Blood Culture - RECD 01/12 110 BLOOD: Aerobic Blood Culture - RECD 01/12 110 BLOOD: Anaerobic Blood Culture - RECD 01/12 110 BLOOD: Aerobic Blood Culture - RECD Radiology results: Results: CXR - CHF with a small area of atelectasis or infiltrate in the right upper lobe. Diagnosis(es): 1. Chest pain Status: Acute 2. Elevated troponin Status: Acute 3. Atrial fibrillation with RVR Status: Acute 4. HTN (hypertension) Status: Chronic 5. Type 2 diabetes mellitus Status: Chronic Plan: Cardiology has seen patient and plans for a cath today d/t her elevated troponin and her hx of SOA with normal household activitis. Will get a free T4 as well d /t slightly elevated TSH. (Mariah Armijo) Diagnosis(es): 1. Chest pain Status: Acute 2. Elevated troponin Status: Acute 3. Atrial fibrillation with RVR Status: Acute 4. HTN (hypertension) Status: Chronic 5. Type 2 diabetes mellitus Status: Chronic Plan: Patient seen and agree with above note. (Baldo Llamas MD) at 0831 at 0845
--- NOTE | 2017-01-12 08:32 | CONSULT NOTE ---
See Addendum Standard Demographics Patient Demo Date of Consultation: 01/12/17 Referring Provider: Baldo Llamas MD Reason for Consultation: A. fib with RVR, Elevated Troponin PRIMARY DIAGNOSIS: A FIB Problem list Problem list: 1. DM, treated for about 10 yrs 2. HTN 3. Hyperlipidemia, on statin 4. History of A. fib A. chronic coumadin therapy History of present illness: History of present illness: 81-year-old white female with history of diabetes, hypertension, a. fib and hyperlipidemia recently in the hospital for diverticulitis was readmitted last evening secondary to chest pain and rapid heart rate. She was found to be in atrial fibrillation with a rapid ventricular response in the emergency department and admitted and started on IV diltiazem. Heart rate has remained around 110 bpm. Patient is very anxious stating that she feels as if her heart is to beat out of her chest. She does have associated discomfort in the chest and shortness of breath. She does relate some exertional shortness of breath recently which is new with her routine activities. Troponins have returned elevated 2. Patient is on warfarin for a history of atrial fibrillation with an INR of 1.5 upon admission. She denies any previous history of TIA or CVA. No known history of coronary artery disease. Electrocardiogram shows atrial fibrillation with rate in the low 100s. Cardiology consult for evaluation and recommendations. Past Medical History: General: Hypertension Yes CVA No Seizures No TB No COPD No Asthma No Diabetes Yes Insulin Dependent No Insulin Pump No Angina No MT No Hyperlipidemia Yes Urinary No Cancer No Rheumatic H.D. No Ulcers No MRSA No GB Disease No Other TIA, A-FIB Additional hx Sphincter of Oddi Dysfunction Diverticulosis, A FIB Allergic Rhinitis Past Surgical HX: Previous Surgery?Y X 3 RIGHT KNEE APPENDECTOMY LEFT FOOT COLONOSCOPY Allergies Coded Allergies: No Known Allergies (04/19/16) Home medications: Reported Medications Metformin HCL (Metformin) 1,000 MG PO BID CALCIUM CARBONATE/VITAMIN D3 (Calcium 500 + Vit D 400 Tablet) 1 TAB PO BID Vitamin E 400 IUNITS PO DAILY CHOLECALCIFEROL (VITAMIN D3) (Vitamin D3) 1,000 IUNITS PO DAILY Furosemide (Lasix 20MG) 10 MG PO DAILY Multivitamin/Iron/Folic Acid (Centrum Adults Tablet) 1 EACH PO DAILY WARFARIN SOD (Warfarin 5MG) 5 MG PO DAILY WARFARIN SOD (Warfarin 5MG) 2.5 MG PO 4 DAYS/WEEK Metronidazole 500 MG PO TID #21 TAB Levofloxacin (Levaquin 500MG) 500 MG PO DAILY #7 TAB Tramadol Hcl (Tramadol 50MG) 50 MG PO Q6HP PRN PAIN #15 Simvastatin 20 MG PO QHS Loratadine (Claritin 10MG) 10 MG PO DAILY Aspirin 81 MG PO DAILY NIFEDIPINE (Nifedipine ER) 30 MG PO QHS METOPROLOL SUCCINATE XL (Metoprolol Succinate) 100 MG PO DAILY Sertraline Hydrochloride (Sertraline 100MG) 100 MG PO DAILY #30 Discontinued Reported Medications AMOXICILLIN (Amoxicillin 875MG Tab) 875 MG PO BID #14 DC: 01/10/17 0824 Current Medications: Current Medications Metoprolol Tartrate 100 MG BID PO (UNV) Fentanyl Citrate 25 MCG Q3MINP PRN IV (UNV) Fentanyl Citrate 50 MCG Q3MINP PRN IV (UNV) Flumazenil 0.2 MG PRN PRN IV (UNV) Heparin Sodium (Beef Lung) 5,000 UNITS PRN PRN IV (UNV) Heparin Sodium/Sodium Chloride 3,000 UNITS PRN PRN IV (UNV) Lidocaine HCl 20 ML ONCE ONE IJ (UNV) Metoprolol Tartrate 5 MG ONCE ONE IV (UNV) Midazolam HCl 1 MG Q3MINP PRN IV (UNV) Midazolam HCl 1 MG Q3MINP PRN IV (UNV) Naloxone HCl 0.4 MG L3HCEOAI PRN IV (UNV) Nitroglycerin 800 MCG PRN PRN IV (UNV) Verapamil HCl 5 MG PRN PRN IV (UNV) Diagnostic Test (Pha) 1 EACH W/MEALS&HS FS (UNV) Insulin Human [rDNA origin] SEE ADMIN CRITERIA FOR LOW INTENSITY SS W/MEALS&HS SC (UNV) Acetaminophen 650 MG Q4HP PRN PO (UNV) Diltiazem HCl 100 MG .Q20H IV (UNV) Sodium Chloride 100 ML Ondansetron HCl 4 MG Q6HP PRN IV (UNV) Sodium Chloride 1,000 ML .Q25H IV (UNV) Diltiazem HCl 0 .STK-MED ONE IV (DC) Diltiazem HCl 10 MG ONCE ONE IV (DC) Diltiazem HCl 100 MG ONCE ONE IV Sodium Chloride 100 ML Furosemide 40 MG ONCE ONE IV (DC) Aspirin 0 .STK-MED ONE .ROUTE (DC) Nitroglycerin 0 .STK-MED ONE .ROUTE (DC) Morphine Sulfate 0 .STK-MED ONE .ROUTE (DC) Sodium Chloride 100 ML .STK-MED ONE IV (DC) Diltiazem HCl 0 .STK-MED ONE IV (DC) Aspirin 325 MG ONCE ONE PO (DC) Morphine Sulfate 2 MG ONCE ONE IV (DC) Nitroglycerin 1 IN ONCE ONE TP (DC) Metoprolol Tartrate 2.5 MG ONCE ONE IV (DC) Sodium Chloride 1,000 ML .Q10H IV Sodium Chloride 10 ML PRN PRN IV Sodium Chloride 1,000 ML .STK-MED ONE IV (DC) Metoclopramide HCl 0 .STK-MED ONE .ROUTE (DC) Sodium Chloride 10 ML PRN PRN IV Immunization HX DT/Tetanus 1-4 Years Flu [id number] Pneumonia RECEIVED IN PAST TB Test in last year No Family history Family HX Family Hx Insignificant No Diabetes No CAD Yes Hypertension Yes Hyperlipidemia Yes Cancer No TB No Social Hx: Smoking HX Tobacco No Type Cigarettes Packs/day < 1 PACK Alcohol Alcohol: No Hx of Drug Use Drug Use? No Review of systems: Constitutional No: no symptoms reported. Respiratory SOB with excertion. Cardiovascular see HPI, chest pain, palpitations Gastrointestinal/Abdominal see HPI, abdominal pain Genitourinary No: no symptoms reported. Musculoskeletal No: no symptoms reported. Neurological No: no symptoms reported. Exam: Admission Vital Signs: 1ST Vital Signs Result Date Time Pulse Ox 93 01/12 55 B/P 148/98 01/12 55 Temp 97.8 01/12 55 Pulse 135 01/125 Resp 24 01/12 55 O2 Delivery ROOM AIR 01/12 0330 O2 Flow Rate 2 01/12 0353 Last Vital Signs: Vital Signs Result Date Time Pulse Ox 92 01/12 700 B/P 107/52 01/12 700 O2 Delivery OXYGEN 01/12 700 O2 Flow Rate 1 01/12 700 Pulse 105 01/12 700 Temp 98.3 01/12 040 Resp 22 01/12 040 Exam General appearance: alert, awake, very anxious. Neck: no carotid bruit, no JVD Cardiovascular: irregular rate & rhythm Respiratory: course breath sounds bilaterally without appreciable rales or wheezing. ABD: soft, no tenderness Extremities: moves all, no peripheral edema Neuro: alert, intact, oriented Laboratory data: Laboratory Tests 01/12/17 0658: Sodium 141, Potassium 3.6, Chloride 105, Carbon Dioxide 30, BUN 11, Creatinine 1.0, Estimated Creat Clear 50, Estimated GFR (MDRD) 53 L, Glucose 181 H, Calcium 8.8, Troponin I 0.39 H, WBC 7.4, RBC 4.04 L, Hgb 11.6 L, Hct 35.6 L, MCV 88.0, RDW 13.9, Plt Count 290, MPV 7.3 L, Gran % 80.7 H, Gran # 6.0, Lymphocytes % 13.4, Monocytes % 4.9, Eosinophils % 0.3, Basophils % 0.6, Lymphocytes # 1.0, Monocytes # 0.4, Eosinophils # 0.0, Basophils # 0.1, PUBS MCHC 32.4, MCH 28.5 01/12/17 0630: POC Glucose 167 H 01/12/170: Lactic Acid 1.6 01/12/17 0110: B-Natriuretic Peptide 461 H, TSH 4.30 H, Thyroxine (T4) 9.7 01/12/17 011: Sodium 140, Potassium 3.2 L, Chloride 103, Carbon Dioxide 27, BUN 12, Creatinine 0.9, Estimated Creat Clear 54, Estimated GFR (MDRD) 60, Glucose 140 H, Calcium 9.2, Total Bilirubin 0.4, AST 26, ALT 23, Alkaline Phosphatase 64, Creatine Kinase 81, CK-MB (CK-2) Rel Index 2.2, CK and CKMB Interp 1.8, Troponin I 0.34 H, Total Protein 7.4, Albumin 3.5, Globulin 3.9 H, Albumin/Globulin Ratio 0.9 L, Amylase 28, Lipase 170, PT 16.2 H, INR 1.49 H, WBC 7.7, RBC 4.42 , Hgb 12.8, Hct 38.7, MCV 87.5, RDW 14.0, Plt Count 320, MPV 7.2 L, Gran % 77.2 , Gran # 6.0, Lymphocytes % 15.9, Monocytes % 5.1, Eosinophils % 1.2, Basophils % 0.6, Lymphocytes # 1.2, Monocytes # 0.4, Eosinophils # 0.1, Basophils # 0.1, PUBS MCHC 33.0, MCH 28.9 Microbiology Date/Time Procedure - Status Source Growth 01/12 110 Anaerobic Blood Culture - RECD BLOOD 01/12 110 Aerobic Blood Culture - RECD BLOOD 01/12 110 Anaerobic Blood Culture - RECD BLOOD 01/12 110 Aerobic Blood Culture - RECD BLOOD Plan Assessment: 1. Elevated troponins consistent with non-STEMI. Pt received ASA in ER. 2. A. fib with RVR. On IV diltiazem and will restart PO metoprolol along with a dose of IV metoprolol. 3. DM 4. HTN 5. Hyperlipidemia, resume statin 6. Elevated TSH with Free T4 pending. ORION N-STEMI SCORE ORION N-STEMI SCORE Response Value Age of patient 65 yrs or more 1 Number of risk factors for CAD Presence of 3 or more 1 Prior coronary artery stenosis (seen in angiography) 50% or more 1 ST-Segment deviation on ECG (>1 min) Absent 0 Prior aspirin intake ASA intake in last 7 days 1 Severe anginal chest pain 2 or more episodes/24hr 1 Elevated cardiac markers(CK-MB or troponin) Present 1 Total 6 Plan: 1. Discussed with Dr. Alvarenga. Will proceed with cardiac cath, risks and benefits discussed with patient and she agrees. 2. Further recommendations to follow. 3. Consider cardioversion if needed. at 0843 at [phone]
--- NOTE | 2017-01-12 10:00 | RADIOLOGY REPORT PS360 ---
PROCEDURE: 2-D M-mode and color Doppler study INDICATIONS FOR THE TEST: Chest pain + COPD Heart Murmur Tobacco Smoking Palpitations Fatigue Syncope Edema Hypertension+Diabetes Mellitus+ Rheumatic Fever SOB SANTANA Obesity Hyperlipidemia+ Family History HD Additional History AFIB PATIENT INFORMATION HEIGHT: 64 WEIGHT:150 GENDER: Female B/P:115/63 2-D/M-MODE INTERPRETATION: 2-D MEASUREMENTS OBSERVED VALUES IN CMS Right Ventricular Dimension (RVDd) 2.8 Interventricular Septum (Thickness)(IVsd) 1.6 Left Ventricular Internal Dimensions(LVIDd) 3.7 Left Ventricular Posterior Wall (Thickness)(LVPWd) 1.0 Aortic Root 3.2 Aortic Cusp Separation 1.4 Left Atrial Dimensions (LAD) 4.1 2D 1. Left atrium is mildly enlarged, left ventricle is normal size, there is mild concentric left ventricular hypertrophy, there is severely reduced left ventricular systolic function, visually estimated ejection fraction 25-30%, there is marked hypo to akinesis involving mid to distal septum, anterior, anteroapical and inferoapical wall. 2. The right atrium is mildly enlarged, right ventricle is normal size and contractility. 3. The aortic valve is thickened and calcified leaflet continue to display mobility. 4. The mitral valve has mitral annular calcification, there is no mitral stenosis 5. The tricuspid valve is grossly normal 6. The pulmonic valve is poorly visualized. 7. No significant pericardial effusion noted. DOPPLER INTERROGATION: Doppler interrogation of the aortic, mitral and tricuspid valvular presence of mild mitral and tricuspid regurgitation, calculated right ventricular systolic pressure is 37 mmHg consistent with mild pulmonary hypertension. CONCLUSION: 1. Mildly left atrium, normal left ventricular size, mild concentric left ventricular hypertrophy, visually estimated ejection fraction of 25-30% with multiple segmental wall motion abnormality as described above. 2. Mild mitral and tricuspid regurgitation, calculated right ventricular systolic pressure is 37 mmHg consistent with mild pulmonary hypertension. 3. No significant pericardial effusion noted.
--- NOTE | 2017-01-12 15:27 | RADIOLOGY REPORT PS360 ---
CARDIAC CATHETERIZATION DATE OF CATHETERIZATION:01/12/2017 1:35 PM PROCEDURES: 1. Left heart catheterization 2. Left ventriculogram 3. Selective coronary angiogram 4. Drug-eluting stent deployment to the proximal and mid LAD 5. Angioplasty to the first diagonal artery 6. Drug-eluting stent deployment to the circumflex artery extending into the second obtuse marginal artery INDICATION FOR TEST: 1. Acute non-ST elevation myocardial infarction 2. Coronary artery disease Informed consent was obtained prior to the procedure. COMPLICATIONS: None ESTIMATED BLOOD LOSS: Less than 10 ml. TECHNIQUE: One percent lidocaine used to anesthetize the right anterior aspect of the wrist. The right radial artery was accessed via the Seldinger technique. A 6 Swedish sheath was placed in the right radial artery. 2.5 mg of verapamil, 800 mcg of nitroglycerin and 5000 U Heparin were given through the arterial sheath. The trap catheter was used to perform left heart catheterization left ventriculogram and selective coronary angiogram. At the end of the diagnostic angiogram and additional 2000 units of heparin was administered intravenously giving an ACT 339 seconds. An Stemina [employer] Discovery left guide catheter was used intubate the left main artery and a BMW wire was placed in the distal LAD. A 3 mm x 15 mm resolute Trev stent was deployed at 13 naomi reducing the critical 99% stenosis to 10%. An additional 2.75 x 18 mm resolute [place] stent was then placed distal to the stent overlapping the stent and deployed at 18 naomi the balloon was brought back and deployed at 20 naomi. Following this a 3.25 x 15 mm noncompliant balloon was placed in the mid and proximal segment deployed at 18 naomi. The wire was placed into the first diagonal artery and a 2.25 x 10 mm balloon was taken 18 naomi to post dilate the struts. ORION II was present down the LAD at the beginning of the case with ORION-3 flow down the LAD and diagonal artery at the end of the case. Following this a choice PT extra-support wire was placed into the second obtuse marginal artery and a 2.5 x 18 mm resolute Trev stent was deployed at 17 naomi reducing the 99% stenosis to 0%. ORION-3 flow was present down the vessel before and after the procedure at the end of procedure the sheath was removed good hemostasis was achieved using TR banding patient was transferred to the postop holding area in stable condition ANGIOGRAPHIC RESULTS: 1. The left main artery normal 2. The left anterior descending artery has a critical proximal 99% stenosis with distal ORION 3. 2. Flow. 4. The circumflex artery is nondominant yet still a large vessel and has an ostial 30% stenosis. The second large obtuse marginal artery has a proximal 90% stenosis. 5. The right coronary artery the right coronary artery is a dominant vessel and has proximal 30% stenosis mid vessel 30 and 40% stenosis with 30-40 and 50% stenosis and large posterior descending artery 6. The DALE ventriculogram reveals dilated ventricle with an akinetic anterior wall estimated ejection fraction 20% 7. The left ventricular end-diastolic pressure 20 mmHg IMPRESSION: 1. Critical proximal LAD disease likely producing a stunned anterior wall with resultant severe systolic heart failure 2. Successful stenting of the proximal to mid LAD, critical disease reduced to 0% with 2 drug-eluting stents 3. Successful angioplasty of the first diagonal artery 4. Successful stenting of a severely diseased large second obtuse marginal artery. Severe to critical disease reduced to 0% with 1 drug-eluting stent 5. Severe left ventricular dysfunction with regional wall motion abnormality 6. Likely a stunned myocardium 7. Mildly elevated LVEDP PLAN: 1. Brilinta and aspirin 2. LDL less than 55 3. Lifevest will be needed prior to discharge home 4. Cardiac rehabilitation 5. Anticoagulation for atrial fibrillation 6. Avoidance of tobacco products 7. Standard therapy for systolic heart failure 8. Rate control atrial fibrillation without using either diltiazem or verapamil
[2017-01-12 17:43] LABS: ALLEN'S TEST PATIENT UNABLE; ARTERIAL ABE -8.3 MMOL/L (-2.4-+2.3); ARTERIAL PO2 51.4 MMHG (80-100); ARTERIAL TCO2 17.1 MMOL/L (23-27); OXYGEN 36% NC
--- NOTE | 2017-01-12 17:48 | ACUTE CARE PROGRESS NOTE (QUA) ---
Progress Notes Subjective Date 01/12/17 Time 1739 Note 81 yo WF with sudden onset of respiratory distress after returning to room from cardiac cath and coronary stenting. Pt with severe ischemic cardiomyopathy and acute decompensation/CHF. She is in A. fib with RVR and Pt's anxiety is complicating care. She has diuresed over 1000 ml after IV lasix. IV cardizem has been ineffective in slowing her heart rate. Will start IV amiodarone and cardiovert to try and return NSR. Will stop cardizem and add IV milrinone if needed for inotropic support. Pt has been apprised of her situation and wishes to have us do whatever is necessary to treat her and keep her alive. Therefore we will rescind her DNI order. Anesthesia has been called to intubate. Pt was intubated and placed on vent support per Anesthesia. After cardioversion, she had what appeared to be sinus bradycardia with hypotension. IV amiodarone was continued and IV milrinone along with Dopamine gtt started. She received atropine and glucagon along with bicarbonate. Vent settings adjusted according to ABG's. Due to previous beta petty use and cardizem use, continued bradycardia and hypotension, a dose of epinephrine was given with good HR and BP response. Dr. Alvarenga was informed and arrived to help. Pt's significant other was informed of her condition. Objective Findings Last VS-Temp:98.2 B/P:130/88 Pulse:93 Resp:20 SaO2:98 OXYGEN Last weight lbs:154 oz:5 K.996 Method:Bed Scales Exam General appearance: agitated Cardiovascular: tachycardia Respiratory: respiratory distress, diminished breath sounds, rhonchi Extremities: moves all, no peripheral edema Neuro: anxious and at times gasping/tachypnic Reviewed: medications, vital signs, lab results Assessment/Plan Problem List 1. Chest pain Status: Acute Qualifiers: Chest pain type: unspecified Qualified Code: R07.9 - Chest pain, unspecified 2. Elevated troponin Status: Acute 3. Atrial fibrillation with RVR Status: Acute 4. HTN (hypertension) Status: Chronic 5. Type 2 diabetes mellitus Status: Chronic Patient condition Guarded Plan: Pt initially in severe acute respiratory distress. With treatment she stabilized. Continue Vent support along with IV milrinone, amiodarone, dopamine and heparin gtt until able to begin weaning process. She will need PO amiodarone when able to be extubated. This inpt stay is expected to cross 2 MNs from start of care Yes at 1950
[2017-01-12 18:47] LABS: ALLEN'S TEST PATIENT UNABLE; ARTERIAL ABE -9.4 MMOL/L (-2.4-+2.3); ARTERIAL PO2 57.2 MMHG (80-100); ARTERIAL TCO2 18.1 MMOL/L (23-27); OXYGEN 100; VENT RATE SIMV 10
[2017-01-12 19:20] LABS: ARTERIAL PO2 268.9 MMHG (80-100)
[2017-01-12 19:21] LABS: ALLEN'S TEST PATIENT UNABLE; ARTERIAL ABE -4.7 MMOL/L (-2.4-+2.3); ARTERIAL TCO2 24.4 MMOL/L (23-27); OXYGEN 100
[2017-01-12 20:06] LABS: ARTERIAL ABE -6.3 MMOL/L (-2.4-+2.3); ARTERIAL PO2 171.1 MMHG (80-100)
[2017-01-12 20:07] LABS: ALLEN'S TEST PATIENT UNABLE; OXYGEN 80%; VENT RATE SIMV 18
--- NOTE | 2017-01-12 21:01 | RADIOLOGY REPORT PS360 ---
CHEST-PORTABLE 1845 hours HISTORY: ET TUBE PLACEMENT ORDERING PHYSICIAN: Baldo Llamas MD PATIENT AGE: 81 years COMPARISON: 01/12/2017 FINDINGS: Endotracheal tube has been placed. The tip is in good position 5.7 cm above the wilber at the T3-T4 level.. Cardiomegaly with pulmonary venous congestion consistent with CHF with interstitial and pulmonary edema. Pulmonary edema is worse when compared to the previous exam. There are small bilateral pleural effusions. The opacification slightly greater in the right lung compared to the left. IMPRESSION: 1. Good position of endotracheal tube. 2. Worsening of CHF with development of alveolar edema. Alveolar opacification is worse on the right compared to the left
--- NOTE | 2017-01-12 23:17 | CONSULT NOTE ---
Standard Demographics Patient Demo Date of Consultation: 01/12/17 Referring Provider: Baldo Llamas MD Reason for Consultation: A. fib with RVR, Elevated Troponin PRIMARY DIAGNOSIS: A FIB Allergies: Coded Allergies: No Known Allergies (04/19/16) History of Present Illness Chief Complaint: Shortness of breath History of Present Illness: Patient is an 81-year-old white female. She had recent hospitalization here for diverticulitis. She presented to the emergency department early this morning with complaints of epigastric and chest pain. She is found to have elevated troponins and cardiac rhythm of atrial fibrillation with rapid ventricular response. Cardiology was consulted. She underwent echocardiogram this morning which revealed significantly diminished ejection fraction of 25 percent. She underwent cardiac catheterization and was found to have critical stenosis of left anterior descending for which she underwent stenting. She has subsequently had ongoing clinical deterioration apparently requiring intubation and placement on mechanical ventilation. This evening she had placement of RIGHT internal jugular central venous catheter for need for inotropic agents. Chest x-ray revealed appreciable right-sided pneumothorax. Surgical consultation was obtained for chest tube placement. Past Medical History Reports: CAD, congestive heart failure, diabetes mellitus. Surgical History Previous Surgery?Y X 3 RIGHT KNEE APPENDECTOMY LEFT FOOT COLONOSCOPY Allergies Coded Allergies: No Known Allergies (04/19/16) Medications: Reported Medications Metformin HCL (Metformin) 1,000 MG PO BID CALCIUM CARBONATE/VITAMIN D3 (Calcium 500 + Vit D 400 Tablet) 1 TAB PO BID Vitamin E 400 IUNITS PO DAILY CHOLECALCIFEROL (VITAMIN D3) (Vitamin D3) 1,000 IUNITS PO DAILY Furosemide (Lasix 20MG) 10 MG PO DAILY WARFARIN SOD (Warfarin 5MG) 5 MG PO 3 DAYS/WEEK Multivitamin/Iron/Folic Acid (Centrum Adults Tablet) 1 EACH PO DAILY WARFARIN SOD (Warfarin 5MG) 7.5 MG PO 4 DAYS/WEEK Metronidazole 500 MG PO TID #21 TAB Levofloxacin (Levaquin 500MG) 500 MG PO DAILY #7 TAB Tramadol Hcl (Tramadol 50MG) 50 MG PO Q6HP PRN PAIN #15 Simvastatin 20 MG PO QHS Loratadine (Claritin 10MG) 10 MG PO DAILY Aspirin 81 MG PO DAILY NIFEDIPINE (Nifedipine ER) 30 MG PO QHS METOPROLOL SUCCINATE XL (Metoprolol Succinate) 100 MG PO DAILY Sertraline Hydrochloride (Sertraline 100MG) 100 MG PO DAILY #30 Discontinued Reported Medications AMOXICILLIN (Amoxicillin 875MG Tab) 875 MG PO BID #14 DC: 01/10/1724 Smoking Hx Tobacco: No Smoker: Former Smoker Type: Cigarettes Packs/day: < 1 Pack Are you/the child exposed to second-hand smoke: No Alcohol Alcohol: No Hx of Drug Use Drug Use? No Review of Systems Additional information: Unable to obtain review of systems due to the patient's critical status on mechanical ventilation and propofol drip Physical Exam VS/I&O Vital Signs Date Time Temp Pulse Resp B/P Pulse O2 O2 Flow FiO2 Ox Delivery Rate 01/12 2106 107 104/58 97 OXYGEN 01/12 2103 108 103/50 96 OXYGEN 01/12 2100 108 101/56 96 OXYGEN 01/12 2057 107 100/55 97 OXYGEN 01/12 2054 107 97/54 96 OXYGEN 01/12 2051 108 89/46 97 OXYGEN 01/13 2048 107 90/49 98 OXYGEN 01/12 2045 107 96/48 97 OXYGEN 01/12 2042 105 102/45 98 OXYGEN 01/12 2039 105 99/48 99 OXYGEN 01/13 2036 106 96/50 99 OXYGEN 01/12 2033 105 98/49 99 OXYGEN 01/12 2030 104 95/48 99 OXYGEN 01/12 2027 104 96/46 99 OXYGEN 01/12 2021 103 94/44 99 OXYGEN 01/12 2018 98 88/48 99 OXYGEN 01/12 2015 104 90/46 100 OXYGEN 01/13 2012 103 96/45 100 OXYGEN 01/12 2009 105 87/34 91 OXYGEN 01/12 2006 104 97/48 99 OXYGEN 01/12 2003 104 91/49 98 OXYGEN 01/13 2000 99 01/13 2000 98 01/13 2000 103 96/48 99 OXYGEN 01/12 1957 103 96/43 99 OXYGEN 01/13 1948 103 90/46 100 OXYGEN 01/12 1945 103 90/40 100 OXYGEN 01/12 1942 103 84/42 100 OXYGEN 01/12 1939 102 89/39 99 OXYGEN 01/13 1936 103 88/41 100 OXYGEN 01/12 1933 102 86/39 99 OXYGEN 01/120 101 84/41 100 OXYGEN 01/12 1927 99 83/40 100 OXYGEN 01/13 1924 100 84/39 100 OXYGEN 12/01 1921 103 86/39 100 OXYGEN / 1918 105 91/40 100 OXYGEN / 1915 110 100/43 100 OXYGEN 01/12 1910 115 134/54 99 OXYGEN 01/12 1907 115 155/67 99 OXYGEN 01/12 1905 108 151/76 99 OXYGEN / 1900 66 18 55/25 99 OXYGEN 15 01/12 1830 43 18 51/18 90 OXYGEN 15 01/12 1828 37 18 70/22 90 OXYGEN 15 01/12 1810 30 18 49/27 95 OXYGEN 15 01/12 1805 77 20 86/57 97 OXYGEN 15 01/12 1800 121 20 158/94 93 OXYGEN 15 01/12 1715 104 20 156/105 93 OXYGEN 15 01/12 1700 86 24 159/99 95 OXYGEN 15 01/12 1645 89 24 165/107 95 OXYGEN 15 01/12 1635 96 24 150/98 93 OXYGEN 15 01/12 1629 100 24 144/97 92 OXYGEN 15 01/12 1621 104 24 152/101 92 OXYGEN 15 01/12 1617 112 24 165/105 92 OXYGEN 15 01/12 1615 121 20 191/115 92 OXYGEN 15 01/12 1600 130 20 100/48 90 OXYGEN 15 01/12 1552 97.9 92 22 138/98 82 OXYGEN 15 01/12 1550 111 20 142/108 91 OXYGEN 2 01/12 1542 93 20 130/88 98 OXYGEN 01/12 1542 83 20 128/72 93 OXYGEN 01/12 1541 98.2 77 20 142/70 90 OXYGEN 01/12 1536 98.2 82 20 143/93 98 OXYGEN 01/12 1533 98.2 82 20 143/93 98 / 1323 18 01/12 1150 20 12 1100 75 20 102/65 91 OXYGEN 1 01/12 1000 58 20 76/43 92 OXYGEN 1 01/12 0930 68 22 81/35 92 1 01/12 0900 77 20 77/38 92 OXYGEN 1 01/12 0830 98.3 105 22 107/52 92 / 0800 98.6 103 20 115/67 91 OXYGEN 1 01/12 0700 105 107/52 92 OXYGEN 1 01/12 0643 1 01/12 0600 109 115/69 93 OXYGEN 1 01/12 0502 1 01/12 0500 108 114/78 92 OXYGEN 1 01/12 0445 121 110/78 92 ROOM AIR 01/12 0401 116 01/12 0401 93 ROOM AIR 01/12 0400 98.3 124 22 120/77 93 OXYGEN 01/12 0353 2 01/12 0353 2 01/12 0353 93 ROOM AIR 01/12 0353 93 ROOM AIR 01/12 0330 126 100/65 90 ROOM AIR 01/12 0330 98.2 121 29 98/65 91 ROOM AIR 01/12 0324 98.3 116 20 132/71 92 01/12 0308 98.3 116 20 132/71 92 01/12 0245 98.3 146 20 151/69 01/12 0244 18 01/12 0201 97.8 122 20 136/98 92 01/12 0055 97.8 135 24 148/98 93 I&O 01/12 0700 Intake Total 119.2 Output Total Balance 119.2 Intake, IV 119.2 Patient 155 lb Weight Exam General appearance intubated, sedated Respiratory crackles Cardiovascular irregularly irregular Plan Plan: Plan for right-sided chest tube placement due to the appreciable size of the pneumothorax and positive pressure mechanical ventilation. at 3024
--- NOTE | 2017-01-12 23:47 | Procedure Note ---
Bedside procedures Chest tube Date of procedure: 01/12/17 Time of procedure: 2343 Chest Tube Insertion: Risks/benefits discussed with pt/guardian? No Chest Tube Location anterior axillary line Anesthesia 1% Lidocaine Size of Azerbaijani Tube (cm) 24 Tube Drainage: other Additonal information: RIGHT chest was prepped and draped in the standard surgical fashion. Local anesthetic was infiltrated consisting of approximately 10 mL of 1 percent Xylocaine. Approximately a 2 cm incision was made. Dissection was carried down through subcutaneous tissues and intercostal margins over the superior aspect of the rib. RIGHT chest space was entered bluntly. There was a orr of air. 24 Azerbaijani chest tube was inserted. It was secured to the skin at approximately the 15 cm lanie. Upon attaching to Pleur-evac approximately 250 mL of thin yellow pleural fluid evacuated. Xeroform and clean dry sterile dressing was applied. There was no air leak. Chest x-ray being done at the time of this dictation. at [id number]
--- NOTE | 2017-01-12 23:56 | ACUTE CARE PROGRESS NOTE (QUA) ---
Progress note: - Post chest tube placement CXR reveals adequate placement with improvement in effusion with slightly smaller pneumothorax. at 2738
[2017-01-13] VITALS (87 sets, daily range): BP systolic 57–136; BP diastolic 29–77
--- NOTE | 2017-01-13 00:15 | ACUTE CARE PROGRESS NOTE (QUA) ---
Progress note: - Patient had appreciable sanguineous oozing from chest tube site. Several additional 0 silk horizontal mattress sutures placed resulting in adequate hemostasis. at 0015
[2017-01-13 06:31] LABS: HEMOGLOBIN 11.1 g/dL (12.2-16.2); LYMPH # 2.2 K/mm3 (0.7-4.5); LYMPH % 17.6 % (10-50.0)
[2017-01-13 06:55] LABS: ARTERIAL PO2 83.3 MMHG (80-100); ARTERIAL TCO2 18.7 MMOL/L (23-27)
[2017-01-13 06:56] LABS: ALLEN'S TEST PATIENT UNABLE; ARTERIAL ABE -6.1 MMOL/L (-2.4-+2.3); OXYGEN 75; PRESSURE SUPPORT 0; VENT RATE 16
--- NOTE | 2017-01-13 08:19 | RADIOLOGY REPORT PS360 ---
CHEST-PORTABLE 11:50 PM Ordering Physician: Baldo Llamas MD Patient Age: 81 years: Female HISTORY: Right PNEUMOTHORAXrespiratory distress. Intubated.. CHF TECHNIQUE: AP portable chest 11:50 PM COMPARISON :Previous chest film from 9 :50 PM earlier this evening FINDINGS ET tube satisfactory position. -Tip level of head of clavicles 5 cm above wilber central venous line enters from right internal jugular with the tip projected over the right vena cava near the level of the right atria. Right chest tube is been placed since earlier study today and the right pneumothorax has partially expanded. Still small apical pneumothorax [id number]% residual pneumothorax. AED defibrillator pad overlying the left heart border at left chest. Significant improvement of interstitial edema CHF from initial studies on earlier today on January 12 but still with mild central, perihilar infiltrate reflecting such along with mild prominence of pulmonary vascularity superimposed upon chronic lung changes Likely small left pleural effusion with left basilar/LLL airspace disease which continues obscures left hemidiaphragm . Heart upper normal in size. Giovana and mediastinalStructures unchanged. IMPRESSION------- Right chest tube is been placed with partial expansion right lung.. Much Smaller right apical residual pneumothorax persists. ET tube satisfactory position . airspace disease at the left lung base with small left pleural effusionObscure the left hemidiaphragm. Decreasing Central perihilar infiltrate with prominent pulmonary vascularity-reflecting the resolving CHF seen previous
--- NOTE | 2017-01-13 08:19 | RADIOLOGY REPORT PS360 ---
CHEST-PORTABLE 11:50 PM Ordering Physician: Baldo Llamas MD Patient Age: 81 years: Female HISTORY: Right PNEUMOTHORAXrespiratory distress. Intubated.. CHF TECHNIQUE: AP portable chest 11:50 PM COMPARISON :Previous chest film from 9 :50 PM earlier this evening FINDINGS ET tube satisfactory position. -Tip level of head of clavicles 5 cm above iwlber central venous line enters from right internal jugular with the tip projected over the right vena cava near the level of the right atria. Right chest tube is been placed since earlier study today and the right pneumothorax has partially expanded. Still small apical pneumothorax [id number]% residual pneumothorax. AED defibrillator pad overlying the left heart border at left chest. Significant improvement of interstitial edema CHF from initial studies on earlier today on January 12 but still with mild central, perihilar infiltrate reflecting such along with mild prominence of pulmonary vascularity superimposed upon chronic lung changes Likely small left pleural effusion with left basilar/LLL airspace disease which continues obscures left hemidiaphragm . Heart upper normal in size. Giovana and mediastinalStructures unchanged. IMPRESSION------- Right chest tube is been placed with partial expansion right lung.. Much Smaller right apical residual pneumothorax persists. ET tube satisfactory position . airspace disease at the left lung base with small left pleural effusionObscure the left hemidiaphragm. Decreasing Central perihilar infiltrate with prominent pulmonary vascularity-reflecting the resolving CHF seen previous
--- NOTE | 2017-01-13 08:31 | RADIOLOGY REPORT PS360 ---
CHEST-PORTABLE 9:50 PM Ordering Physician: Baldo Llamas MD Patient Age: 81 years: Female HISTORY: POST LINE PLACEMENT TECHNIQUE: Supine AP portable chest9:50 PM following central line placement Supine COMPARISON :Previous chest film from 645 PM today FINDINGS ET tube satisfactory position. -Tip level of head of clavicles 5 cm above wilber New central venous line enters from right internal jugular with the tip projected over the right vena cava at level of the right atria. New right pneumothorax has developed approximately 25% PTX most evident at the right apex but extends along throughout the lateral right lung.. A small fluid collection is well at right CP angle likely related to a hydropneumothorax. Question very slight shift of mediastinum to left but this may reflects a leftward rotation positioning of this supine portable chest. Right perihilar infiltrate greater than left. Prominence of central vascularity particularly right is more evident on this study reflecting atelectasis right lung along with CHF superimposed upon chronic changes bilateral. Likely small left pleural effusion with left basilar/LLL airspace disease which continues obscures left hemidiaphragm AED defibrillator pad overlying the left heart border at left chest. IMPRESSION------- Right Central line is entering from right jugular. . New generous right hydropneumothorax now evident. Approximately 25% PTX More pronounced airspace disease at the right perihilar region central right lung reflect additional atelectasis along with perihilar infiltrate. & CHF. Small bilateral pleural effusions . Left hemidiaphragm obscured due to slightly more evident/denser airspace disease & small left pleural effusion. Decreasing Central perihilar infiltrate & prominent pulmonary vascularity-reflecting resolving CHF vs earlier CXRs .
--- NOTE | 2017-01-13 08:43 | RADIOLOGY REPORT PS360 ---
CHEST-PORTABLE 5:00 AM Ordering Physician: Baldo Llamas MD Patient Age: 81 years: Female HISTORY: INTUBATED TECHNIQUE: AP portable chest COMPARISON :Previous chest film from 9:50 PM & 11:50 PM yesterday FINDINGS NG tube now in place in seen passing through the GE junction into the stomach ET tube remains satisfactory position. -Tip level of head of clavicles 5 cm above wilber central venous line enters from right internal jugular with the tip projected over the right vena cava at right atria. Right chest tube placed yesterday evening has further re expanded right lung with only a small sliver residual pneumothorax less than 5% remaining.. AED /defibrillator pad is more superiorly positioned over the left mid upper chest overlying the left heart border at left chest. Bilateral pleural effusions are more evident and obscured right and left hemidiaphragm with bibasilar atelectasis/airspace disease likely associated. Follow-up important Progressive improvement of central perihilar airspace disease. Improving improvement of CHF and and associated perihilar findings as well. . IMPRESSION------- NG tube now in place & satisfactory position- passing through GE junction & partially imaged at stomach Right chest tube is with further reexpansion of right lung. Only scant right apical pneumothorax persists.. . ET tube satisfactory position . Both right and left hemidiaphragm now obscured due to bilateral pleural effusions and basilar atelectasis/airspace disease Decreasing Central airspace disease on right right.. Improving CHF vs earlier CXRs .
--- NOTE | 2017-01-13 09:32 | ACUTE CARE PROGRESS NOTE (QUA) ---
Progress Notes Subjective Date 01/13/17 Time 09 Note Events of overnight discussed with Dr. Alvarenga, notes reviewed. Patient intubated, family at bedside. On Dopamine, Milrinone, Amiodarone and Heparin drips now. Objective Findings Laboratory Tests 01/13/17 0730: PT 19.2 H, INR 1.77 H 01/13/17 0730: APTT 85.7 *H 01/13/17 0630: ABG pH 7.45, ABG pCO2 (Temp Corrct 26.5 L, ABG pO2 (Temp Correct 83.3, ABG HCO3 17.9 L, ABG Total CO2 18.7 L, ABG O2 Sat (Calculated) 95.8, ABG Base Excess - 6.1 L, Robert Test PATIENT UNABLE, Vent Rate 16, Tidal Volume 500, POC PEEP 5, Pressure Support 0, Blood Gas Comments LEFT RADIAL 01/13/17 0550: Sodium 140, Potassium 2.7 *L, Chloride 105, Carbon Dioxide 22, BUN 14, Creatinine 1.4 H, Estimated Creat Clear 37 L, Estimated GFR (MDRD) 36 L, Glucose 272 H, Calcium 7.6 L, WBC 12.4 H, RBC 3.87 L, Hgb 11.1 L, Hct 35.0 L, MCV 90.3, RDW 14.2, Plt Count 281, MPV 8.1, Gran % 75.2, Gran # 9.3 H, Lymphocytes % 17.6, Monocytes % 6.7, Eosinophils % 0.3, Basophils % 0.2, Lymphocytes # 2.2, Monocytes # 0.8, Eosinophils # 0.0, Basophils # 0.0, PUBS MCHC 31.8, MCH 28.7 01/13/17 0203: POC Glucose 345 *H 01/12/17 2310: APTT 46.2 H 01/12/17 2001: ABG pH 7.42, ABG pCO2 (Temp Corrct 28.6 L, ABG pO2 (Temp Correct 171.1 H, ABG HCO3 18.1 L, ABG Total CO2 19.0 L, ABG O2 Sat (Calculated) 99.0, ABG Base Excess -6.3 L, Robert Test PATIENT UNABLE, Vent Rate SIMV 18, Tidal Volume 550, POC PEEP 5 01/12/17 1914: ABG pH 7.24 *L, ABG pCO2 (Temp Corrct 54.4 H, ABG pO2 (Temp Correct 268.9 H, ABG HCO3 22.7, ABG Total CO2 24.4, ABG O2 Sat (Calculated) 99.4, ABG Base Excess -4.7 L, Robert Test PATIENT UNABLE, Vent Rate simv10, Tidal Volume 450, POC PEEP 5 01/12/17 1842: ABG pH 7.30 L, ABG pCO2 (Temp Corrct 35.1, ABG pO2 (Temp Correct 57.2 L, ABG HCO3 17.0 L, ABG Total CO2 18.1 L, ABG O2 Sat (Calculated) 85.5 *L, ABG Base Excess -9.4 L, Robert Test PATIENT UNABLE, Vent Rate SIMV 10, Tidal Volume 450, POC PEEP 5 01/12/17 1739: ABG pH 7.41, ABG pCO2 (Temp Corrct 26.3 L, ABG pO2 (Temp Correct 51.4 L, ABG HCO3 16.3 L, ABG Total CO2 17.1 L, ABG O2 Sat (Calculated) 86.6 *L, ABG Base Excess -8.3 L, Robert Test PATIENT UNABLE 01/12/17 1725: APTT 68.2 *H 01/12/17 1421: POC Activ Clotting Time 394 *H 01/12/17 1345: POC Activ Clotting Time 339 *H 01/12/17 1128: POC Glucose 155 H Microbiology 01/13 1820 SPUTUM: Sputum Culture - RES 01/13 1820 SPUTUM: Gram Stain - RES Vital Signs Date Time Temp Pulse Resp B/P Pulse O2 O2 Flow FiO2 Ox Delivery Rate 01/13 0800 15 01/13 07 107 18 72/35 100 OXYGEN 01/13 0650 106 18 58/32 100 OXYGEN 01/13 0640 105 18 73/38 100 OXYGEN 01/13 0630 15 01/13 0630 108 18 73/37 100 OXYGEN 01/13 0620 109 18 77/37 100 OXYGEN 01/13 0610 107 18 77/35 100 OXYGEN 01/13 0600 99.0 107 18 81/38 100 OXYGEN 01/13 0600 99.0 107 18 73/37 100 01/13 0550 104 18 78/33 100 OXYGEN 12/02 0542 98.0 106 18 78/33 100 12/02 0540 105 18 77/38 100 OXYGEN 12/02 0530 107 18 72/37 100 OXYGEN 12/02 0520 107 18 82/34 100 OXYGEN 12/02 0510 107 18 78/37 100 OXYGEN 12/02 0500 98.7 104 18 64/29 100 OXYGEN 12/02 0450 106 18 77/37 100 OXYGEN 12/02 0440 108 18 77/39 100 OXYGEN 12/02 0430 108 18 77/38 100 OXYGEN 12/02 0420 108 18 91/31 100 OXYGEN 12/02 0410 108 18 83/41 100 OXYGEN 12/02 0400 65 12/02 0400 99.1 108 18 90/44 100 OXYGEN 12/02 0350 108 18 90/43 100 OXYGEN 12/02 0340 107 18 86/36 100 OXYGEN 12/02 0330 102 18 84/34 100 OXYGEN 12/02 0320 101 18 68/38 100 OXYGEN 12/02 0310 102 18 86/41 100 OXYGEN 12/02 0300 98.3 101 18 88/43 100 OXYGEN 12/02 0250 97 18 82/41 100 OXYGEN 12/02 0240 94 18 83/39 100 OXYGEN 12/02 0230 93 18 89/40 100 OXYGEN 12/02 0220 91 18 86/37 100 OXYGEN 12/02 0210 92 18 87/39 100 OXYGEN 12/02 0200 98.4 89 18 89/40 100 OXYGEN 12/02 0150 88 18 89/43 100 OXYGEN 12/02 0140 87 18 94/44 100 OXYGEN 12/02 0130 86 18 91/40 100 OXYGEN 12/02 0120 91 18 95/39 100 OXYGEN 12/02 0110 91 18 97/44 100 OXYGEN 12/02 0100 15 12/02 0100 100.2 94 18 94/46 100 OXYGEN 12/02 0050 91 18 95/45 100 OXYGEN 12/02 0040 92 18 96/48 100 OXYGEN 12/02 0030 95 18 92/44 100 OXYGEN 12/02 0020 88 18 88/43 100 OXYGEN 12/02 0010 80 18 86/46 100 OXYGEN 12/02 0000 65 12/02 0000 99.1 84 18 87/45 100 OXYGEN 12/02 0000 99.1 84 18 87/45 100 12/01 2345 92 18 88/50 100 OXYGEN 12/01 2330 95 18 94/48 96 OXYGEN 12/01 2315 97.7 101 18 97/51 99 OXYGEN 12/ 2300 97.0 102 18 101/56 99 OXYGEN 12/ 2245 96.8 109 18 107/62 99 OXYGEN 12/ 2230 96.7 108 18 106/60 99 OXYGEN 12/ 2215 96.3 108 18 104/62 99 OXYGEN 12/ 2200 96.1 108 18 104/59 100 OXYGEN 12/ 2200 97.0 108 18 104/59 100 12/01 2145 96.2 111 18 110/61 93 OXYGEN 12/ 2130 95.3 110 18 109/62 93 OXYGEN 12/5 95.1 109 18 110/60 94 OXYGEN 12/2105 107 104/58 97 OXYGEN 12/2102 108 103/50 96 OXYGEN 12/2099 108 101/56 96 OXYGEN 12/2056 107 100/55 97 OXYGEN 12/2053 107 97/54 96 OXYGEN 12/2050 108 89/46 97 OXYGEN 12/2047 107 90/49 98 OXYGEN 12/2044 107 96/48 97 OXYGEN 12/2041 105 102/45 98 OXYGEN 12/2038 105 99/48 99 OXYGEN 12/2035 106 96/50 99 OXYGEN 12/2032 105 98/49 99 OXYGEN 12/2029 104 95/48 99 OXYGEN 12/2026 104 96/46 99 OXYGEN 12/2020 103 94/44 99 OXYGEN 12/2017 98 88/48 99 OXYGEN 12/2014 104 90/46 100 OXYGEN 12/2011 103 96/45 100 OXYGEN 12/2008 105 87/34 91 OXYGEN 12/2005 104 97/48 99 OXYGEN 12/2002 104 91/49 98 OXYGEN 12/1999 99 12/01 1999 98 12/01 1999 103 96/48 99 OXYGEN 12/1956 103 96/43 99 OXYGEN 12/8 103 90/46 100 OXYGEN 12/5 103 90/40 100 OXYGEN 12/ 1942 103 84/42 100 OXYGEN 12/9 102 89/39 99 OXYGEN 12/6 103 88/41 100 OXYGEN 12/3 102 86/39 99 OXYGEN 12/0 101 84/41 100 OXYGEN 12/7 99 83/40 100 OXYGEN 12/01 1924 100 84/39 100 OXYGEN 12/ 1921 103 86/39 100 OXYGEN 01/12 1918 105 91/40 100 OXYGEN 01/12 191 110 100/43 100 OXYGEN 01/12 1910 115 134/54 99 OXYGEN 01/12 1907 115 155/67 99 OXYGEN 01/12 1905 108 151/76 99 OXYGEN 01/12 1900 66 18 55/25 99 OXYGEN 15 01/12 1830 43 18 51/18 90 OXYGEN 15 01/12 1828 37 18 70/22 90 OXYGEN 15 01/12 1810 30 18 49/27 95 OXYGEN 15 01/12 1805 77 20 86/57 97 OXYGEN 15 01/12 1800 121 20 158/94 93 OXYGEN 15 01/12 1715 104 20 156/105 93 OXYGEN 15 01/12 1700 86 24 159/99 95 OXYGEN 15 01/12 1645 89 24 165/107 95 OXYGEN 15 01/12 1635 96 24 150/98 93 OXYGEN 15 01/12 1629 100 24 144/97 92 OXYGEN 15 01/12 1621 104 24 152/101 92 OXYGEN 15 01/12 1617 112 24 165/105 92 OXYGEN 15 01/12 1615 121 20 191/115 92 OXYGEN 15 01/12 1600 130 20 100/48 90 OXYGEN 15 01/12 1552 97.9 92 22 138/98 82 OXYGEN 15 01/12 1550 111 20 142/108 91 OXYGEN 2 01/12 1542 93 20 130/88 98 OXYGEN 01/12 1542 83 20 128/72 93 OXYGEN 01/12 1541 98.2 77 20 142/70 90 OXYGEN 01/12 1536 98.2 82 20 143/93 98 OXYGEN 01/12 1533 98.2 82 20 143/93 98 01/12 1323 18 01/12 1150 20 01/12 1100 75 20 102/65 91 OXYGEN 1 01/12 1000 58 20 76/43 92 OXYGEN 1 01/12 0930 68 22 81/35 92 1 I&O Past 24 Hrs-ending at 0700 12/02 0700 Intake Total 2145 Output Total 2215 Balance -70 Last VS-Temp:99 B/P:72/35 Pulse:107 Resp:18 SaO2:100 OXYGEN Last weight lbs:159 oz:3 K.206 Method:Bed Scales Exam General appearance: sedated, intubated Cardiovascular: regular rate & rhythm Respiratory: good air movement, basilar rales ABD: non-distended, soft Extremities: no peripheral edema Assessment/Plan Problem List 1. Atrial fibrillation with RVR Status: Acute 2. Hypotension 3. Pneumothorax 4. S/P chest tube placement 5. NSTEMI (non-ST elevated myocardial infarction) 6. CHF (congestive heart failure) 7. Pulmonary edema 8. Respiratory failure 9. Type 2 diabetes mellitus Status: Chronic 10. HTN (hypertension) Status: Chronic This inpt stay is expected to cross 2 MNs from start of care Yes Comments: Propofol has been decreased, BP has improved, continue current treatment, care discussed with patient's family. at 0932
--- NOTE | 2017-01-13 09:46 | ACUTE CARE PROGRESS NOTE (QUA) ---
Progress note: - CXR this morning reveals good lung expansion. Still with very small apical pneumothorax. Only rare bubbles with no clear air leak. Will place to 30 cm suction. at 0945
--- NOTE | 2017-01-13 11:41 | PHARMACY CLINIC NOTE ---
Patient Demographics Patient Demographics Admission date: 01/12/17 Date: 01/13/17 Time: 1134 Allergies Coded Allergies: No Known Allergies (04/19/16) HEIGHT- FT: 5 IN: 4.00 K.[id number] Medication Indication Medication therapy: Heparin Current indication for use: AFIB WITH RVR, ELEVATED TROPONINS AND POST STENT PLACEMENT Problem List 1. NSTEMI (non-ST elevated myocardial infarction) 2. Respiratory failure 3. CHF (congestive heart failure) 4. Pneumothorax 5. Hypotension CVA: No Pharmacy Heparin dosing labs Anticoag labs: Laboratory Tests 01/13 01/13 01/13 01/12 01/12 0730 0730 0550 2310 1725 Coagulation PT (9.4 - 11.8 SECONDS) 19.2 H INR (0.9 - 1.1) 1.77 H APTT (23.6 - 34.0 SECONDS) 85.7 *H 46.2 H 68.2 *H Hematology Hgb (12.2 - 16.2 g/dL) 11.1 L Hct (37.0 - 47.0 %) 35.0 L Plt Count (142 - 424 K/mm3) 281 Pharmacist alert! If baseline PTT/INR not ordered, pharmacist must order! Order CBC w/auto diff weekly while on heparin! Obtain PTT with each rate change Q 6 hrs until 2 consecutive goal values then daily. Monitoring PHARMACY MONITORING 1 Date: 01/12/17 Time: 1725 PTT: 68.2 Infusion rate: 17 ML/HR, NO BOLUS Notes: RECEIVED 8000 UNITS HEPARIN DURING PROCEDURE PHARMACY MONITORING 2 Date: 01/12/17 Time: 2310 PTT: 46.7 Infusion rate: 19 ML/HR (950 UNITS/HR) PHARMACY MONITORING 3 Date: 01/13/17 Time: 0730 PTT: 85.7 Infusion rate: 17 ML/HR (850 UNITS/HR) Notes: PATIENT INR 1.77 PHARMACY MONITORING 4 Date: 01/13/17 Time: 2120 PTT: 74.6 Infusion rate: 17 ML/HR (850 UNITS/HR) PHARMACY MONITORING 5 Date: 01/14/17 Time: 0415 PTT: 93.4 Infusion rate: 15 ML/HR (750 UNITS/HR) Core Measures Core Measures Is INR > or = to 2.0 at d/c? No (NOT INDICATED STOPPED PRIOR TO) Most recent lab results: Laboratory Tests 01/14 01/14 01/14 01/13 1050 0945 0415 2120 Coagulation APTT (23.6 - 34.0 SECONDS) 93.4 *H 74.6 *H Hematology Hgb (12.2 - 16.2 g/dL) 5.9 *L 5.8 *L Hct (37.0 - 47.0 %) 16.2 *L 17.0 *L Plt Count (142 - 424 K/mm3) 230 Were warfarin and heparin started the same day? No (NOT INDICATED) at 6314
[2017-01-13 13:38] LABS: ALLEN'S TEST NON APPLICABLE; ARTERIAL ABE -9.4 MMOL/L (-2.4-+2.3); ARTERIAL PO2 111.2 MMHG (80-100); ARTERIAL TCO2 16.1 MMOL/L (23-27); OXYGEN 60; PRESSURE SUPPORT 5; VENT RATE 14
--- NOTE | 2017-01-13 14:24 | RADIOLOGY REPORT PS360 ---
CARDIAC CATHETERIZATION DATE OF CATHETERIZATION:01/13/2017 12:56 PM PROCEDURES: 1. Left heart catheterization 2. Left ventriculogram INDICATION FOR TEST: 1. Cardiogenic shock 2. Recent anterior myocardial infarction 3. Coronary artery disease Informed consent was obtained prior to the procedure. COMPLICATIONS: None ESTIMATED BLOOD LOSS: Less than 10 ml. TECHNIQUE: One percent lidocaine was used to anesthetize the right groin. The right femoral artery was accessed via the Seldinger technique. A 4-Tristanian sheath was placed in the right femoral artery. A JR4 catheter was used to perform left heart catheterization and left ventriculogram. At the end of the procedure 2.5 L of normal saline was administered both arterially and intravenously. Following this the catheter was placed back in the left ventricle repeat angiography was performed. After a significant interval improvement in LVEDP the diagnostic and interventional procedure was terminated and patient was transferred to the postop holding area in stable condition. ANGIOGRAPHIC RESULTS: 1. The DALE ventriculogram reveals initially and ejection fraction of 50% however after 2.5 L ejection fraction decreased to 35% 2. The left ventricular end-diastolic pressure initial LVEDP was less than 5 after 2.5 L LVEDP increased to 20 to 25 mmHg IMPRESSION: 1. Patient was initially hypovolemic and has had an adequate intravascular response to IV fluids. PLAN: 1. Continue supportive care 2. At this time will discontinue the milrinone and decrease dopamine 3. Patient's EDP is now 20-25 and she slightly fluid overloaded but this should mobilize and I believe patient will tolerate this well. 4. Continue supportive care with ventilator support 5. KVO fluids for now and slowly weaning dopamine.
[2017-01-13 22:09] LABS: ARTERIAL PO2 132.8 MMHG (80-100); ARTERIAL TCO2 19.1 MMOL/L (23-27); OXYGEN 60; PRESSURE SUPPORT 5; VENT RATE 14
[2017-01-14] VITALS (84 sets, daily range): BP systolic 75–142; BP diastolic 29–69
--- NOTE | 2017-01-14 08:23 | ACUTE CARE PROGRESS NOTE (QUA) ---
Progress note: - Patient went to liaison inspection laboratory assistant yesterday for possible IABP and femoral PA catheter. Was noted to have low filling pressures and given fluids. After procedure she had bleeding around chest tube site which resolved with dressing change. CXR this morning appears to show resolution of pneumothorax. No air leak noted. Will place off suction to water seal. at 0823
--- NOTE | 2017-01-14 08:23 | ACUTE CARE PROGRESS NOTE (QUA) ---
Progress note: - Patient went to r&d lab technician yesterday for possible IABP and femoral PA catheter. Was noted to have low filling pressures and given fluids. After procedure she had bleeding around chest tube site which resolved with dressing change. CXR this morning appears to show resolution of pneumothorax. No air leak noted. Will place off suction to water seal. at 0823
--- NOTE | 2017-01-14 08:45 | RADIOLOGY REPORT PS360 ---
CHEST-PORTABLE 6:45 AM Ordering physician: Baldo Llamas MD Age: 81 years Female INDICATION: chest symptomsPNEUMOTHORAX follow-up. Check NG tube placement. Chest tube. ET tube . PROCEDURE: AP supine CHEST-PORTABLE 6:45 AM FINDINGS:. ET tube remains in satisfactory position with tip at the level of clavicles & just less than 5 cm above wilber NG tube passes through the esophagus and GE junction lipping slightly with tip towards at fundus of stomach. Right internal jugular central line is enters at the base the right neck, passing through the SVC with tip near the region right right atria. Right chest tube again seen entering lateral lower right chest. The right lung remains reexpanded but there with increased pleural fluid surrounding the entire right lung. With this Fluid replaced yesterday's small right apical pneumothorax overlying the right lung apex... This increased pleural fluid yields diffuse increased density throughout the right hemithorax. VRC report question progressing groundglass consolidation/airspace disease but I would tend favor this is increasing density throughout the right chest is due to the right pleural fluid since we do not see air bronchograms,, but warrants warrants close follow-up confirm.Mediastinum is slightly to the left but this most likely merely reflects a slight leftward rotation on the chest right of the increased volume right chest. Right and left hemidiaphragm are obscured by the bilateral pleural effusions/bibasilar airspace disease-. Suspect mainly atelectasis here at the lung bases.. Perhaps scant slight overall improvement at left base There is been further regression initial CHF and central vascular prominence and perihilar infiltrates.. Only mild prominence of some central, perihilar markings persist on the right left shown improvement There is lucent appearance at the left lung apex but I favor this is a skinfold line demonstrated areas and not pneumothorax. Follow-up IMPRESSION 1. Increasing RIGHT pleural effusion.-I favor this primarily accounts for the increased density throughout the right pneumothorax. .. Pleural fluid now surrounds right lung,. Pleural Fluid has displaced the right pneumothorax & right apical pneumothorax seen yesterday.. No residual pneumothorax appreciated.. Right chest tube in place-. 2. Bibasilar airspace disease /atelectasis, along with bilateral pleural effusions-again obscure right & left hemidiaphragm.. Lucency at the left apex most likely skinfold. Encourage follow-up CXR later today 3. Improvement of vascular congestion/CHF compared to multiple previous day studies.. Less evident right perihilar infiltrate persistent. 4. ET tube, & NG tube satisfactory position Right IJ central line remains with tip right atrium
--- NOTE | 2017-01-14 09:40 | ACUTE CARE PROGRESS NOTE (QUA) ---
Progress Notes Subjective Date 01/14/17 Time 0931 Note Events for yesterday discussed with Dr. Alvarenga and primary RN and patient's son. SHe was taken to systems testing laboratory technician for IABP but LV gram showed EF close to 40% and intravascular dehydration. Patient was given IVF and BP improved. She was weaned off of Dopamine but then went back into A. fib. Cardioversion was attempted but failed to restore sinus rhythm. She was treated with Digoxin and Levophed at that time. CXR shows improved pneumothorax. Objective Findings Laboratory Tests 01/14/17 0613: POC Glucose 227 H 01/14/17 0415: APTT 93.4 *H 01/13/17 2230: Sodium 139, Potassium 3.8, Chloride 108 H, Carbon Dioxide 20 L, BUN 18, Creatinine 1.4 H, Estimated Creat Clear 37 L, Estimated GFR (MDRD) 36 L, Glucose 251 H, Calcium 7.0 L, Magnesium 1.3 L, Total Bilirubin 0.4, AST 63 H , ALT 30, Alkaline Phosphatase 39 L, Total Protein 4.6 L, Albumin 1.9 L, Globulin 2.7, Albumin/Globulin Ratio 0.7 L 01/13/178: ABG pH 7.43, ABG pCO2 (Temp Corrct 27.9 L, ABG pO2 (Temp Correct 132.8 H, ABG HCO3 18.3 L, ABG Total CO2 19.1 L, ABG O2 Sat (Calculated) 98.3, ABG Base Excess -6.0 L, Vent Rate 14, Tidal Volume 500, POC PEEP 5, Pressure Support 5, Blood Gas Comments L/F 01/13/170: APTT 74.6 *H 01/13/17 1707: POC Glucose 300 H 01/13/17 1315: ABG pH 7.40, ABG pCO2 (Temp Corrct 25.2 L, ABG pO2 (Temp Correct 111.2 H, ABG HCO3 15.3 L, ABG Total CO2 16.1 L, ABG O2 Sat (Calculated) 97.6, ABG Base Excess -9.4 L, Robert Test NON APPLICABLE, Vent Rate 14, Tidal Volume 500, POC PEEP 5, Pressure Support 5, Blood Gas Comments OFFICE TECHNOLOGY INSTRUCTOR SAMPLE Vital Signs Date Time Temp Pulse Resp B/P Pulse O2 O2 Flow FiO2 Ox Delivery Rate 12/03 0700 99.2 109 14 101/40 100 OXYGEN 15 12/03 0650 98 14 100/44 100 OXYGEN 15 12/03 0640 15 12/03 0640 113 14 103/40 100 OXYGEN 15 12/03 0630 111 14 104/49 100 OXYGEN 15 12/03 0620 100 14 120/52 100 OXYGEN 15 12/03 0615 15 12/03 0610 113 14 113/47 100 OXYGEN 15 12/03 0600 60 12/03 0600 99.1 94 14 123/55 100 15 12/03 0600 99.1 94 14 123/51 100 OXYGEN 15 12/03 0550 110 14 110/51 100 OXYGEN 15 12/03 0540 98 14 105/42 100 OXYGEN 15 12/03 0530 107 14 115/55 100 OXYGEN 15 12/03 0520 110 14 113/51 100 OXYGEN 15 12/03 0511 101 12/03 0510 100 14 117/48 100 OXYGEN 15 12/03 0500 15 /03 0500 98.7 108 14 108/42 100 OXYGEN 15 /03 0450 109 14 99/46 100 OXYGEN 15 /03 0440 102 14 98/46 100 OXYGEN 15 12/03 0430 15 /03 0430 105 14 130/50 100 OXYGEN 15 12/03 0420 98.7 111 14 101/45 100 OXYGEN 15 12/03 0410 98.3 111 14 101/49 100 OXYGEN 15 12/03 0400 15 12/03 0400 60 12/03 0400 98.3 112 14 107/48 100 OXYGEN 15 12/03 0350 100 14 89/48 100 OXYGEN 15 12/03 0340 107 14 86/47 100 OXYGEN 15 12/03 0330 110 12/03 0330 111 14 84/45 100 OXYGEN 15 12/03 0320 106 14 89/44 100 OXYGEN 15 12/03 0310 98 14 98/44 100 OXYGEN 15 12/03 0300 15 12/03 0300 99.2 98 14 111/43 100 OXYGEN 15 12/03 0250 107 12/03 0250 101 14 88/44 100 OXYGEN 15 12/03 0240 100 14 99/45 100 OXYGEN 15 12/03 0230 120 12/03 0230 109 14 83/48 100 OXYGEN 15 12/03 0220 113 14 101/50 100 OXYGEN 15 12/03 0210 114 14 75/40 100 OXYGEN 15 12/03 0201 15 12/03 0200 117 / 0200 15 01/14 0200 60 / 0200 98.3 114 14 84/50 100 OXYGEN 15 / 0150 109 14 101/42 100 OXYGEN 15 / 0140 114 14 101/46 100 OXYGEN 15 / 0130 115 14 97/44 100 OXYGEN 15 / 0120 106 14 111/46 100 OXYGEN 15 01/14 0110 109 14 100/45 100 OXYGEN 15 01/14 0100 106 12/ 0100 98.5 106 14 94/43 100 OXYGEN 15 / 0050 115 14 97/44 100 OXYGEN 15 01/14 0040 111 14 99/40 100 OXYGEN 15 01/14 0030 121 14 82/46 100 OXYGEN 15 01/14 0029 15 / 0020 112 14 75/43 100 OXYGEN 15 / 0010 109 14 100/45 100 OXYGEN 15 / 0000 15 / 0000 60 /03 0000 99.3 114 14 83/48 100 OXYGEN 15 / 0000 99.3 112 14 83/48 100 15 01/13 2350 116 14 86/44 100 OXYGEN 15 01/13 2340 108 14 83/43 100 OXYGEN 15 01/13 2330 112 14 80/42 100 OXYGEN 15 01/13 2320 107 14 82/40 100 OXYGEN 15 01/13 2310 112 14 90/44 100 OXYGEN 15 01/13 2300 99.3 118 14 82/42 100 OXYGEN 15 01/13 2250 120 14 97/50 100 OXYGEN 15 01/13 2240 119 14 85/42 100 OXYGEN 15 01/13 2230 15 01/13 2230 134 14 74/44 100 OXYGEN 15 01/13 2220 135 14 82/46 100 OXYGEN 15 01/13 2210 135 14 70/45 100 OXYGEN 15 01/13 2200 15 01/13 2200 60 / 2200 100.9 145 14 63/38 100 OXYGEN 15 01/13 2150 137 14 68/46 100 OXYGEN 15 01/13 2140 142 14 71/42 100 OXYGEN 15 01/13 2130 155 14 57/36 100 OXYGEN 15 01/13 2120 143 14 77/40 100 OXYGEN 15 01/130 149 /2109 149 14 91/36 100 OXYGEN 15 01/13 2109 143 01/14 2108 157 01/13 2106 155 12/02 2100 100.9 131 14 83/43 100 OXYGEN 15 01/135 134 14 90/49 100 OXYGEN 15 01/13 2030 135 14 136/62 97 OXYGEN 15 01/13 2015 101 14 86/37 95 OXYGEN 15 01/14 2012 15 121999 15 01/14 2000 99.3 90 14 108/55 100 15 01/14 2000 99.3 89 14 108/55 96 OXYGEN 15 01/13 194 102 14 97/40 100 OXYGEN 15 01/13 1935 60 01/13 1930 100 14 97/43 100 OXYGEN 15 01/13 1915 99.3 130 14 90/48 100 OXYGEN 15 01/13 1901 15 01/13 1900 99 14 95/41 100 OXYGEN 15 01/13 1900 99.5 94 14 95/41 100 OXYGEN 15 01/13 1830 93 14 86/40 100 OXYGEN 15 01/13 1800 99.0 130 14 93/74 100 OXYGEN 15 01/13 1750 15 01/13 1730 130 24 103/42 100 OXYGEN 15 01/13 1717 15 01/13 1700 98.7 99 14 112/46 100 OXYGEN 15 01/13 1635 99.2 104 18 110/77 98 15 01/13 1630 100 14 112/49 100 OXYGEN 15 01/13 1600 50 01/13 1600 98.5 99 14 114/48 100 OXYGEN 15 01/13 1554 15 01/13 1530 100 14 103/34 100 OXYGEN 15 01/13 1500 15 01/13 1500 98.0 102 18 95/44 100 OXYGEN 15 01/13 1454 99.2 104 18 110/77 98 OXYGEN 01/13 1451 99.2 104 18 110/77 98 /02 1346 18 01/13 1318 18 01/13 1300 15 01/13 1200 15 01/13 1200 50 /02 1130 109 14 76/36 100 OXYGEN 15 01/13 1100 15 01/13 1100 99.6 108 24 81/34 100 OXYGEN 15 01/13 1030 105 14 75/32 100 OXYGEN 15 01/13 1006 15 01/13 1000 99.2 101 22 74/29 100 OXYGEN 15 I&O Past 24 Hrs-ending at 0700 12/03 0700 Intake Total 5196.80 Output Total 2023 Balance 3172.80 Last VS-Temp:99.2 B/P:101/40 Pulse:109 Resp:14 SaO2:100 OXYGEN Last weight lbs:165 oz:5 K.984 Method:Bed Scales Exam General appearance: sedated and intubated ENT: ET tube and NG tube in place Cardiovascular: regular rate & rhythm Respiratory: good air movement (clear anteriorly) ABD: normal bowel sounds, soft, no tenderness Assessment/Plan Problem List 1. Atrial fibrillation with RVR Status: Acute 2. Hypotension 3. Pneumothorax 4. S/P chest tube placement 5. NSTEMI (non-ST elevated myocardial infarction) 6. CHF (congestive heart failure) 7. Pulmonary edema 8. Respiratory failure 9. Type 2 diabetes mellitus Status: Chronic 10. HTN (hypertension) Status: Chronic This inpt stay is expected to cross 2 MNs from start of care Yes Comments: Cont. Heparin drip, holding Spironolactone this morning, AM labs ordered, will increase IVF to 75 mL/hr and attempt to wean Levophed, appreciate cardiology and surgery care of this patient. at 0940
[2017-01-14 10:00] LABS: LYMPH # 1.2 K/mm3 (0.7-4.5); LYMPH % 12.6 % (10-50.0)
[2017-01-14 10:05] LABS: HEMOGLOBIN 5.8 g/dL (12.2-16.2)
[2017-01-14 10:22] LABS: ALLEN'S TEST ACCEPTABLE; ARTERIAL ABE -5.2 MMOL/L (-2.4-+2.3); ARTERIAL PO2 149.9 MMHG (80-100); ARTERIAL TCO2 19.3 MMOL/L (23-27); OXYGEN 60; PRESSURE SUPPORT 5; VENT RATE 14
[2017-01-14 11:06] LABS: HEMOGLOBIN 5.9 g/dL (12.2-16.2)
--- NOTE | 2017-01-14 14:00 | RADIOLOGY REPORT PS360 ---
CT CHEST W/O CONTRAST Ordering Physician: Baldo Llamas MD Patient Age: 81 years: Female HISTORY: LOW H H drop H & H. Intubated respiratory distress. Pneumothorax. Prior CHF TECHNIQUE: Helical CT delayed scanning performed through chest ~at least 6 minutes after 75 cc Isovue-370 initially given for the preceding CT abdomen/pelvis study. Sagittal coronal reconstructions on CT workstation. COMPARISON :. Preceding CT abdomen from today Recent chest films.. Also prior CT chest from October 07, 2015 F INDINGS Right chest: .. Moderate - generous right pleural effusion along the posterior right chest as well as some fluid extending anteriorly along the course of the right major fissure. CT workday financials consultant view suggests there has been progression of right pleural fluid since earlier 7 a.m. study today ( although prolonged supine position may have shifted fluid from right base to the right apex now on these current images.) This right pleural fluid is somewhat inhomogeneous- & slightly hyperdense .- This raises question of possible associated bleeding into this right pleural collection?.... Chest tube enters from the lateral right chest on PACS passing below right eighth rib. The distal chest tube passes through this fluid and would expect should drain this right pleural collection- if it is of liquid character. . progressive compression atelectasis I believe primarily accounts for the areas of increased lung density & consolidation throughout the posterior RLL and R UL. Associated air bronchograms throughout these regions but favor mainly atelectasis-& most pronounced throughout posterior RLL... Cannot exclude associated pneumonia developing these areas but favor atelectasis. There is slight of heart & mediastinum the left likely reflecting increased volume of the right chest pleural fluid... There is a scant barely evident sliver of residual right pneumothorax, overlying the anterior aspect of the RML towards right lung base LEFT LUNG. Small left pleural effusion with mild compression atelectasis and with air bronchograms at the left lower lobe posteriorly here at the left lung base. Left upper lung field is clear. The T-spine intact No vascular congestion. No CHF appearance . MEDIASTINUM : ET tube in place. Satisfactory position. NG tube passes through the esophagus with tip looping into the, fundus of stomach.. Internal jugular central line enters at base the neck with tip extending to the posterior aspect of the right atrium just below its junction with SVC. Left atrial enlargement. Heart appears normal in size. Scant pericardial effusion. Coronary artery calcification and stents.. No hilar no mediastinal adenopathy of significance. IMPRESSION. 1. RIGHT CHEST: ... Moderate to generous Right Pleural Effusion, has increased since yesterday & earlier today CXR, with mild shift mediastinum leftward due to such.. Suggest follow-up PCXR 4-6 hours again evaluate.. ... Right Chest Tube passes through this posterior inhomogeneous pleural collection..- Cannot exclude elements of blood within this pleural collection noting its slightly patchy hyperdense appearance.. Correlation with drainage required-. ... Prominent consolidation w/ air bronchograms, mainly reflecting prominent compression atelectasis posterior right lung involving the-most pronounced volume RLL & to lesser degree posterior RUL. ... Only scant sliver of Residual Right Pneumothorax anterior overlying the RML/anterior to the inferiormost right lung base. . 2. LEFT CHEST.: Small left pleural effusion with consolidation/compression atelectasis at LLL posterior . 3. ET tube, NG tube appear satisfactory. Internal jugular central venous catheter with tip just entering posterior right atria
--- NOTE | 2017-01-14 14:26 | RADIOLOGY REPORT PS360 ---
CT ABD PELVIS W/ CONTRAST Ordering Physician: Baldo Llamas MD Patient Age: 81 years: Female HISTORY: LOW H Hbrought inHH &H. Recent prior catheterization. Short of breath. Intubation performed respiratory distress TECHNIQUE: Helical CT scanning performed beginning at the lower chest continuing through the abdomen and pelvis and then continuing to the mid thigh. COMPARISON :Previous July 03, 2016 CT abdomen pelvis. FINDINGS A moderate to generous right pleural fluid collection. Somewhat inhomogeneous slightly hyperdense raising possibility may be some bleeding into this right pleural space and fluid collection accounting for its appearance. This was discussed in depth on the CT chest report. Associated compression atelectasis. Scant residual sliver of pneumothorax overlying the right middle lobe anteriorly on the lower slices through the chest. Otherwise the right pneumothorax is been evacuated. Small left pleural effusion with likely compression atelectasis accounting for the appearance posterior left lower lobe. Mild bronchiectatic changes possibly present here as well. ABDOMEN/pelvis.. Liver unremarkable. No bili ductal dilatation. No lesions... Gallbladder is distended appears mildly tense. Could be accentuated by along NPO status. Correlation required.. .No wall thickening nor inflammation nor calcified stones evident otherwise by CT. Pancreas unremarkable Spleen unremarkable. Kidneys. No urinary tract calculi nor obstruction. Aorta. Diffuse atrophy slight calcification. Areas of minor dilatation aorta measures up to 2.4 cm just below the renal arteries. Unimpressive but noted. GI tract. NG tube is seen developing at the fundus of stomach. Small bowel unremarkable. Terminal ileum unremarkable.. Generous stool seen throughout the right and transverse colon with diverticulosis throughout sigmoid colon but no evidence of diverticulitis Pelvis. Again the long-standing stable left pelvic cystic mass measuring up to 5.4 cm x 4.2 cm, best on axial image 17 coronal image 45 this feature has been present on studies dating back to June 2016 and unchanged . Right adnexa unremarkable. No free fluid at the abdomen or pelvis. Additional fluid collections in the abdomen A Landaverde catheter is in place drains bladder. The air collection extending anterior from the urinary bladder a most likely reflects a somewhat unusual anterior extension the bladder judging from the sagittal image 62-63, 64 as well as other sagittal images. Less likely this is gas within bowel. Does not appear to be free air in this position. Attention directed to the right and left groin 30 history of recent cardiac catheterization.. No evidence of hematoma or fluid collection in either groin.Scanning continued inferiorly and performed down to the mid thigh IMPRESSION: 1. Most prominent findings are seen at the lung bases as discussed on CT chest report:. RIGHT CHEST:, with progression moderate to generous inhomogeneous right pleural effusion. Prominent compression atelectasis and consolidation at the RLL. Right Chest tube in place. Only scant sliver of residual pneumothorax overlying anterior aspect RML. LEFT CHEST: Small left pleural effusion compression atelectasis LLL 2. No acute findings in the abdomen or pelvis or groin. No fluid collection or evidence of bleeding at abdomen/pelvis. 3. Note. Moderately distended, slightly tense appearing gallbladder... Requires correlation. No gallstones nor wall thickening by CT.May merely reflect prolonged NPOstatus? 4. .*Recent cardiac catheterization-but with no evidence of fluid collection or hematoma at either groin Minimal diffuse edema in subcutaneous soft tissues may reflect hypoproteinemia. 5. 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
[2017-01-14 14:39] LABS: ABO BLOOD TYPE A; RH BLOOD TYPE POSITIVE
[2017-01-14 14:40] LABS: ANTIHUMAN GLOB CROSSMATCH COMPAT
[2017-01-14 14:41] LABS: ANTIHUMAN GLOB CROSSMATCH COMPAT
--- NOTE | 2017-01-14 15:43 | Procedure Note ---
Bedside procedures Chest tube Date of procedure: 01/14/17 Time of procedure: 1538 Chest Tube Insertion: Risks/benefits discussed with pt/guardian? Yes Chest Tube Location anterior axillary line Anesthesia 1% Lidocaine Size of Slovenian Tube (cm) 32 Tube Drainage: blood ml- (450) Additonal information: Patient had shown decreasing hemoglobin/hematocrit. She underwent CT scan of the chest abdomen and pelvis today. This was notable for fluid in the RIGHT chest likely consistent with hemothorax. Previously placed chest tube (24 Slovenian) for pneumothorax was not evacuating this presumed blood. Therefore plan was made for placement of larger chest tube with removal of smaller chest tube. Plan was made for placement of the chest tube at the previous site to decrease any additional bleeding issues and due to the fact that the previously placed chest tube was nonfunctional and appeared to be clotted. Sutures were removed and previously placed 24 Slovenian chest tube was removed. RIGHT chest and wound were then thoroughly prepped with chlorhexidine. Once this was dried chest was then prepped as well with ChloraPrep. Local anesthetic was infiltrated deeply and into the intercostal muscles as well as subcutaneous tissues. Using blunt dissection the RIGHT thoracic cavity was entered. 32 Slovenian chest tube was then inserted and manipulated posteriorly in an attempt to drain the hemothorax. It was attached to the Pleur-evac. It was secured at the skin with a 0 silk horizontal mattress suture at approximately 18 cm lanie. Approximately 450 mL of blood was evacuated. Xeroform and clean dry sterile dressing was applied. Chest x-ray is ordered at the time of this dictation. at 1541
--- NOTE | 2017-01-14 20:26 | RADIOLOGY REPORT PS360 ---
CHEST-PORTABLE 1552 hours. PM. Ordering Physician: Baldo Llamas MD Patient Age: 81 years: Female HISTORY: PNUEMOTHORAX right chest tube. DecreasedH& \T.br\ TECHNIQUE: AP portable upright chest COMPARISON :Portable chest film from 7:00 AM & CT from 12:[address] from earlier today FINDINGS It appears a chest tube is been revised and now is seen passing over I believe the lateral right seventh rib, with revision and what appears to be a slightly larger caliber chest tube. It is also changed position and Directed more superiorly towards the apex right chest.. There is a generous amount of dense fluid overlying the right apex-. Although this fluid over right apex appears greater than was seen on 7:00 AM PCXR study-this fluid appears to have decreased in the interval compared to the 12:30 CT from today... With this there also been some interval clearing at the right base.. The right hemidiaphragm more evident & partially visualized.. Blunting right CP angle reflecting the persistent pleural fluid. The hazy appearance throughout the right lung reflecting the combination of pleural fluid & diffuse airspace disease posterior RLL and RUL lobe right upper lobe as seen on CT The left base appears clear as well.. Does have affected PT PTT Blunting left CP angle reflecting small left pleural effusion as seen on prior CT today. The left hemidiaphragm now better delineated delineated with. Minimal density/minimal airspace disease at the medial left base reflecting the compression atelectasis. Left upper lung field is clear. Normal pulmonary vascularity. Upper normal size. Borderline enlarged. ET tube tip remains satisfactory position to 5 cm above wilber. NG tube remains satisfactory as seen through GE junction with tip at fundus of stomach. The right internal jugular line remain stable entering from right neck with tip at right atria . IMPRESSION ...... 1. right chest tube is been revised. Slightly larger tube is been placed and directed more superiorly towards apex right chest. When compared to the more recent CT 12:30 today there is been significant decreased volume of fluid surrounding the right lung.. There is some residual fluid overlying the right apex. No residual pneumothorax appreciated on plain film. 2.Other tubes and lines remain in stable satisfactory position
[2017-01-14 20:55] LABS: HEMOGLOBIN 7.3 g/dL (12.2-16.2)
[2017-01-15] VITALS (33 sets, daily range): BP systolic 107–159; BP diastolic 38–80
[2017-01-15 05:41] LABS: LYMPH % 12.2 % (10-50.0)
[2017-01-15 05:42] LABS: HEMOGLOBIN 7.4 g/dL (12.2-16.2)
[2017-01-15 06:20] LABS: ARTERIAL ABE -12.5 MMOL/L (-2.4-+2.3); ARTERIAL PO2 118.4 MMHG (80-100); ARTERIAL TCO2 13.6 MMOL/L (23-27); OXYGEN 40; PRESSURE SUPPORT 5; VENT RATE 14
--- NOTE | 2017-01-15 07:26 | ACUTE CARE PROGRESS NOTE (QUA) ---
Progress note: - Received two units PRBCs overnight. Chest tube with additional 170 mL fluid ( less bloody). Few bubbles of air leak. Will place to 30 cm H20 suction for now. at [id number]
--- NOTE | 2017-01-15 08:12 | ACUTE CARE PROGRESS NOTE (QUA) ---
Progress Notes Subjective Date 01/15/17 Time 0758 Note 81 yo WF on vent in SDU. Telemetry shows A. fib with mild RVR (rate in the 90- 110 bpm range). On amiodarone PO along with digoxin. Chest tube in place. NG and chest tube drainage bloody. BP stable around 100-110 mm Hg. Objective Findings Last VS-Temp:99.5 B/P:107/40 Pulse:103 Resp:14 SaO2:100 OXYGEN Last weight lbs:165 oz:5 [id number].984 Method:Bed Scales Exam General appearance: Sedated Cardiovascular: irregular rate & rhythm Respiratory: coarse breath sounds bilaterally Extremities: trace edema bilaterally of LE's Neuro: Sedated on vent. Nurses states some agitation with lower propafol dose and suctioning. Reviewed: medications, vital signs, lab results Assessment/Plan Problem List 1. Atrial fibrillation with RVR Status: Acute Assessment/Plan: Will transfuse 1 unit of PRBC today to get Hgb > 8 and then consider repeating cardioversion to get back to NSR. 2. Hypotension Assessment/Plan: Improved. Off pressors. 3. Pneumothorax Assessment/Plan: S/P chest tube. 4. S/P chest tube placement 5. NSTEMI (non-ST elevated myocardial infarction) Assessment/Plan: s/p SALUD to LAD and Cx with continued DAPT (ASA and Brilinta) 6. CHF (congestive heart failure) Assessment/Plan: Improved. 7. Pulmonary edema 8. Respiratory failure Assessment/Plan: Sedated and on the vent. Will attempt weaning today. 9. Type 2 diabetes mellitus Status: Chronic 10. HTN (hypertension) Status: Chronic 11. Ischemic cardiomyopathy Assessment/Plan: Not on PADMA or Coreg at this time due to hypotension requiring pressors over the weekend. However, Repeat cardiac cath on 01/13/2017 showed improvement of LVEF from 20-25% to about 40%. Continue current therapy for now. When extubated and stable will consider restarting PADMA and possibly coreg as tolerated. Patient condition Guarded Plan: Discussed with Dr. Alvarenga. See above. This inpt stay is expected to cross 2 MNs from start of care Yes at 0812
--- NOTE | 2017-01-15 08:22 | ACUTE CARE PROGRESS NOTE (QUA) ---
Progress Notes Subjective Date 01/15/17 Time 0806 Note On vent with TV 500, FIO2 40%; RR14; PEEP 5; assisting some; NS at 75/hour and remains on Propofol gtt. [address]; NGT to LWS ; Landaverde cath Per nursing: does respond ; has been stable. Cardiology and surgery continue to follow Family at bedside Objective Findings Laboratory Tests 01/15/17 0808: Misc Test Units BLOOD UNIT RELEASE 01/15/17 0616: POC Glucose 162 H 01/15/17 0600: ABG pH 7.36, ABG pCO2 (Temp Corrct 23.3 L, ABG pO2 (Temp Correct 118.4 H, ABG HCO3 12.9 L, ABG Total CO2 13.6 L, ABG O2 Sat (Calculated) 98.3, ABG Base Excess -12.5 L, Robert Test N/A, Vent Rate 14, Tidal Volume 500, POC PEEP 5, Pressure Support 5, Blood Gas Comments RIGHT RADIAL 01/15/17 0530: Sodium 142, Potassium 3.6, Chloride 112 H, Carbon Dioxide 16 L, BUN 18, Creatinine 0.9, Estimated Creat Clear 59, Estimated GFR (MDRD) 60, Glucose 167 H, Calcium 7.1 L, WBC 7.8, RBC 2.47 L, Hgb 7.4 *L, Hct 21.5 *L, MCV 87.1, RDW 15.5, Plt Count 180, MPV 7.6, Gran % 79.9, Gran # 6.2, Lymphocytes % 12.2, Monocytes % 5.8, Eosinophils % 2.0, Basophils % 0.1, Lymphocytes # 1.0, Monocytes # 0.5, Eosinophils # 0.2, Basophils # 0.0, PUBS MCHC 34.2, MCH 29.8 01/14/17 2136: POC Glucose 147 H 01/14/17 2045: Hgb 7.3 *L, Hct 21.7 *L 01/14/17 1750: Misc Test Units BLOOD UNIT RELEASE 01/14/17 1736: POC Glucose 184 H 01/14/17 1435: Misc Test Units BLOOD UNIT RELEASE 01/14/17 1153: POC Glucose 210 H 01/14/17 1135: Antibody Screen NEGATIVE, Miscellaneous Test POSITIVE 01/14/17 1050: Hgb 5.9 *L, Hct 16.2 *L 01/14/17 1015: ABG pH 7.47 H, ABG pCO2 (Temp Corrct 26.3 L, ABG pO2 (Temp Correct 149.9 H, ABG HCO3 18.5 L, ABG Total CO2 19.3 L, ABG O2 Sat (Calculated) 98.5, ABG Base Excess -5.2 L, Robert Test ACCEPTABLE, Vent Rate 14, Tidal Volume 500, POC PEEP 5, Pressure Support 5, Blood Gas Comments RIGHT BRACHIAL 01/14/17 0945: Phosphorus 3.5, Magnesium 2.3 H 01/14/17 0945: Sodium 138, Potassium 3.5, Chloride 108 H, Carbon Dioxide 21 L, BUN 21 H, Creatinine 1.1 H, Estimated Creat Clear 48 L, Estimated GFR (MDRD) 48 L, Glucose 231 H, Calcium 7.2 L, Total Bilirubin 0.4, AST 53 H, ALT 25, Alkaline Phosphatase 37 L, Total Protein 4.3 L, Albumin 1.8 L, Globulin 2.5, Albumin/ Globulin Ratio 0.7 L, WBC 9.5, RBC 1.90 L, Hgb 5.8 *L, Hct 17.0 *L, MCV 89.4, RDW 15.1, Plt Count 230, MPV 8.1, Gran % 80.7 H, Gran # 7.7, Lymphocytes % 12.6 , Monocytes % 5.8, Eosinophils % 0.7, Basophils % 0.1, Lymphocytes # 1.2, Monocytes # 0.6, Eosinophils # 0.1, Basophils # 0.0, PUBS MCHC 34.0, MCH 30.4 Vital Signs Date Time Temp Pulse Resp B/P Pulse O2 O2 Flow FiO2 Ox Delivery Rate 01/15 0800 15 01/15 0700 99.5 103 14 107/40 100 OXYGEN 15 01/15 0651 15 01/15 0600 15 01/15 0600 99.0 110 14 123/43 100 OXYGEN 15 01/15 0551 99.0 103 14 132/55 100 15 01/15 0506 15 01/15 0500 99.9 98 14 122/49 100 OXYGEN 15 01/15 0451 40 01/15 0430 99.7 98 14 122/40 100 OXYGEN 15 01/15 0400 15 01/15 0400 99.7 96 14 117/44 100 OXYGEN 15 01/15 0330 99.5 105 14 118/41 100 OXYGEN 15 01/15 0314 15 01/15 0300 99.7 109 14 125/40 100 OXYGEN 15 01/15 0230 98.8 93 14 121/44 100 OXYGEN 15 01/15 0229 100 / 0211 40 / 0200 15 01/15 0115 15 01/15 0100 99.1 106 14 122/44 100 OXYGEN 15 01/15 0030 99.5 117 14 149/52 100 OXYGEN 15 01/15 0020 100 / 0013 99.5 96 14 121/42 100 15 01/15 0000 15 01/15 0000 99.5 96 14 121/42 100 OXYGEN 15 01/14 2330 99.9 93 14 117/39 100 OXYGEN 15 01/14 2330 99.9 93 14 117/39 100 OXYGEN 15 01/14 2301 15 01/14 2300 99.8 107 14 117/35 100 OXYGEN 15 01/14 2230 99.8 104 14 116/37 100 OXYGEN 15 01/14 2208 15 01/14 2200 99.6 118 14 117/35 100 OXYGEN 15 01/14 2130 99.9 96 14 120/38 100 OXYGEN 15 01/14 2100 15 01/14 2100 99.7 102 14 123/47 100 OXYGEN 15 01/14 2100 100 01/145 99.7 96 14 114/46 01/14 2030 99.7 105 14 131/42 100 OXYGEN 15 01/14 2009 15 01/15 2000 99.3 105 14 113/42 100 OXYGEN 15 01/14 1945 99.1 109 14 110/42 01/14 1945 99.1 109 14 110/42 100 15 01/14 1930 99.4 87 14 118/42 100 OXYGEN 15 01/14 1900 98.9 94 14 111/44 01/14 1845 99.0 105 14 105/45 01/14 1832 15 01/14 1830 98.9 109 14 108/45 01/14 1815 98.4 93 14 97/41 01/14 1810 98.6 99 14 110/44 /03 1805 98.7 97 14 97/44 03 1800 50 01/14 1800 98.5 97 14 105/41 01/14 1745 98.8 89 14 111/43 12/03 1700 15 12/ 1645 98.9 99 14 104/42 12/03 1600 50 12/03 1600 99.0 96 22 142/69 12/ 1600 99.2 109 14 101/40 100 15 12/ 1545 98.9 106 20 94/39 12/03 1530 99.3 102 20 99/48 12/03 1515 99.1 103 24 133/43 12/ 1510 98.6 101 20 114/29 12/03 1505 99.0 100 14 111/41 12/03 1500 15 12/ 1500 98.9 107 14 113/44 12/03 1500 100 12/03 1430 102 14 107/35 100 OXYGEN 15 12/ 1400 50 12/ 1400 98.4 104 14 108/35 100 OXYGEN 15 / 1330 114 22 107/38 100 OXYGEN 15 12/ 1300 15 12/ 1300 98.1 106 22 123/43 100 OXYGEN 15 12/ 1200 50 / 1200 99.2 118 20 117/42 100 OXYGEN 15 / 1200 99.2 109 14 101/40 100 15 12/ 1130 109 20 107/42 100 OXYGEN 15 12/ 1100 15 12/ 1100 99.3 110 14 115/46 100 OXYGEN 15 / 1030 115 14 110/47 100 OXYGEN 15 12/ 1000 60 12/03 1000 99.1 111 14 98/43 100 OXYGEN 15 12/ 0930 107 14 113/43 100 OXYGEN 15 12/ 0900 15 12/03 0900 99.4 104 14 127/48 100 OXYGEN 15 12/ 0830 102 14 104/40 100 OXYGEN 15 Current Medications Sodium Chloride 250 ML .STK-MED ONE IV (DC) Sodium Chloride 1,000 ML .STK-MED ONE IV (DC) Iopamidol 75 ML ONCE ONE IV (DC) Sodium Chloride 10 ML ONCE ONE IV (DC) Propofol 200 ML .STK-MED ONE IV (DC) Lidocaine HCl 0 .STK-MED ONE .ROUTE (DC) Sodium Chloride 250 ML .Q10H IV (DC) Lidocaine HCl 0 .STK-MED ONE .ROUTE (DC) Sodium Chloride 250 ML .Q10H IV (DC) Digoxin 0.125 MG DAILY IV Amiodarone HCl 400 MG BID PO Amiodarone HCl 0 .STK-MED ONE .ROUTE (DC) Norepinephrine Bitartrate 8 MG .Q25H IV Dextrose/Sodium Chloride 250 ML Amiodarone HCl 900 MG .Q25H IV (DC) Dextrose/Water 500 ML Sodium Chloride 1,000 ML .Q25H IV Heparin Sodium (Beef Lung) 5,000 UNITS PRN PRN IV (DC) Heparin Sodium/Sodium Chloride 3,000 UNITS PRN PRN IV (DC) Nitroglycerin 800 MCG PRN PRN IV (DC) Sodium Chloride 10 ML PRN PRN IV Verapamil HCl 5 MG PRN PRN IV (DC) Aspirin 81 MG DAILY PO Dopamine HCl/Dextrose 250 ML .Q10H IV (DC) Dopamine HCl/Dextrose 250 ML .Q9H32M IV (DC) Carvedilol 12.5 MG BID PO Lisinopril 5 MG BID PO Potassium Chloride 40 MEQ BID PO (DC) Ticagrelor 90 MG BID PO Propofol 100 ML .Q2H41M IV Nitroglycerin 0.5 IN Q6 TP Clonidine HCl 0.1 MG ONCE PRN PO Heparin Sodium/Dextrose 500 ML .Q25H IV (DC) Morphine Sulfate 1 MG Q2HP PRN IV Nitroglycerin 0.4 MG [id number] PRN SL Temazepam 15 MG QHSP PRN PO Spironolactone 25 MG DAILY PO Sodium Chloride 25 ML PRN PRN IV Diagnostic Test (Pha) 1 EACH W/MEALS&HS FS Insulin Human [rDNA origin] SEE ADMIN CRITERIA FOR LOW INTENSITY SS W/MEALS&HS SC Acetaminophen 650 MG Q4HP PRN PO Diltiazem HCl 100 MG .Q20H IV (DC) Sodium Chloride 100 ML Ondansetron HCl 4 MG Q6HP PRN IV Sodium Chloride 10 ML PRN PRN IV 12/03 1500 12/03 2300 12/04 0700 Intake Total 931.3 1302.2 770.2 Output Total 608 1100 787 Balance 323.3 202.2 -16.8 Intake, IV 714.8 1242.2 670.2 Intake, Oral 96.5 Intake, Tube 0 Feeding Intake, Tube 120 60 100 Irrigant Output, 0 Emesis Output, 0 Estimated Blood Loss Output, Other 80 650 220 Output, Urine 528 450 567 Last VS-Temp:99.5 B/P:107/40 Pulse:103 Resp:14 SaO2:100 OXYGEN Last weight lbs:165 oz:5 K.984 Method:Bed Scales Exam General appearance: sedated and remains on vent Cardiovascular: irregularly irregular, VR 90's-120's Respiratory: decreased BS on the right; remains on vent ABD: soft, bowel sounds present, NGT to suction Genitourinary: urine clear, catheter in place Extremities: no leg edema Neuro: sedated; remains on Propofol gtt Assessment/Plan Problem List 1. Atrial fibrillation with RVR Status: Acute 2. Hypotension 3. Pneumothorax 4. S/P chest tube placement 5. NSTEMI (non-ST elevated myocardial infarction) 6. CHF (congestive heart failure) 7. Pulmonary edema 8. Respiratory failure 9. Type 2 diabetes mellitus Status: Chronic 10. HTN (hypertension) Status: Chronic Patient condition Guarded Plan: As per MD's; will transfuse additional 1 unit of PRBC; possible cardioversion after this per cardiology This inpt stay is expected to cross 2 MNs from start of care Yes (Trice Shen APRN) Assessment/Plan Problem List 1. Atrial fibrillation with RVR Status: Acute 2. Hypotension Status: Resolved 3. Pneumothorax Status: Acute 4. S/P chest tube placement 5. NSTEMI (non-ST elevated myocardial infarction) 6. CHF (congestive heart failure) 7. Pulmonary edema 8. Respiratory failure 9. Type 2 diabetes mellitus Status: Chronic 10. HTN (hypertension) Status: Chronic 11. Hemothorax on right Status: Acute Comments: Patient seen and agree with above note, care discussed with patient's son at bedside. She was found to have a right hemothorax yesterday, was transfused and a larger chest tube was placed by Dr. Tang, heparin drip was stopped. (Baldo Llamas MD) at 0822 at 0859
[2017-01-15 13:32] LABS: ARTERIAL ABE -11.9 MMOL/L (-2.4-+2.3); ARTERIAL PO2 88.2 MMHG (80-100); ARTERIAL TCO2 13.4 MMOL/L (23-27)
[2017-01-15 13:33] LABS: OXYGEN 35; PRESSURE SUPPORT 10
--- NOTE | 2017-01-15 17:18 | RADIOLOGY REPORT PS360 ---
CHEST-PORTABLE HISTORY: Follow-up pneumothorax, right chest tube placement PER PROTOCOL ORDERING PHYSICIAN: Baldo Llamas MD PATIENT AGE: 81 years COMPARISON: None available FINDINGS: Right chest tube remains in place. No obvious pneumothorax. Right-sided pleural effusion appears smaller. There is some residual density in the right lower lobe which may be due to underlying consolidation with effusion. There are mild atelectatic changes in the retrocardiac region on the left. Endotracheal tube is in good position 4 cm above the wilber. Nasogastric tube is curled in the stomach with the tip projecting toward the fundus. Right IJ central line tip is in region of the right atrium. IMPRESSION: 1. Tubes and lines present as described above. 2. Decrease in right-sided pleural effusion without obvious pneumothorax with persistent airspace disease in the right lower lobe. 3. Left lower lobe atelectasis
[2017-01-16] VITALS (24 sets, daily range): BP systolic 98–196; BP diastolic 41–82
--- NOTE | 2017-01-16 06:18 | RADIOLOGY REPORT PS360 ---
CHEST-PORTABLE HISTORY: Follow-up respiratory failure PT INTUBATED ORDERING PHYSICIAN: Baldo Llamas MD PATIENT AGE: 81 years COMPARISON: 01/15/2017 FINDINGS: Endotracheal tube remains in good position. Nasogastric tube is looped in the stomach with the tip in the region of the fundus. Right IJ central venous line tip is in region of the right atrium. Right-sided chest tube remains in place without evidence of pneumothorax. There remains increased density of the right chest consistent with underlying airspace disease with effusion unchanged. Left lower lobe on loss/consolidation also noted. Overall no change. IMPRESSION: 1. Tubes and lines present as described above. 2. No change right-sided airspace disease with fusion without pneumothorax. No change left lower lobe consolidation or volume loss
[2017-01-16 07:01] LABS: HEMOGLOBIN 9.6 g/dL (12.2-16.2); LYMPH # 1.1 K/mm3 (0.7-4.5)
[2017-01-16 07:22] LABS: ARTERIAL ABE -14.3 MMOL/L (-2.4-+2.3); ARTERIAL PO2 99.4 MMHG (80-100); ARTERIAL TCO2 12.1 MMOL/L (23-27); OXYGEN 35; PRESSURE SUPPORT 10; VENT RATE 0
--- NOTE | 2017-01-16 08:10 | ACUTE CARE PROGRESS NOTE (QUA) ---
Progress Notes Subjective Date 01/16/17 Time 0800 Note 81 yo WF in bed. Eyes open and responding to questions with nodding. On CPAP with plans to extubate today. Off propafol again this AM. Good urine output. Chest tube in place. Objective Findings Last VS-Temp:99.4 B/P:190/82 Pulse:111 Resp:24 SaO2:99 OXYGEN Last weight lbs:165 oz:8 K.07 Method:Bed Scales Exam General appearance: awake, no acute distress Cardiovascular: irregularly irregular Respiratory: breath sounds bilaterally with basilar rales Extremities: edema Neuro: alert Reviewed: medications, vital signs, lab results Assessment/Plan Problem List 1. Atrial fibrillation with RVR Status: Acute Assessment/Plan: Continues in A. fib. On amiodarone and digoxin. Consider cardioversion, if needed, after extubation but for now will attempt rate control. Off heparin or other anticoagulant due to hemorrhagic effusion in chest requiring transfusion. 2. Hypotension Status: Resolved 3. Pneumothorax Status: Acute Qualifiers: Pneumothorax type: postprocedural Qualified Code: J95.811 - Postprocedural pneumothorax 4. S/P chest tube placement Assessment/Plan: per Surgery 5. NSTEMI (non-ST elevated myocardial infarction) Assessment/Plan: s/p 2 vessel coronary stenting. On DAPT. 6. CHF (congestive heart failure) Qualifiers: Congestive heart failure type: combined Congestive heart failure chronicity: acute Qualified Code: I50.41 - Acute combined systolic (congestive) and diastolic (congestive) heart failure 7. Pulmonary edema Qualifiers: Chronicity: acute Qualified Code: J81.0 - Acute pulmonary edema 8. Respiratory failure Qualifiers: Chronicity: acute Respiratory failure complication: unspecified whether with hypoxia or hypercapnia Qualified Code: J96.00 - Acute respiratory failure, unspecified whether with hypoxia or hypercapnia 9. Type 2 diabetes mellitus Status: Chronic 10. HTN (hypertension) Status: Chronic Assessment/Plan: Plans for extubation today. Will restart PO lisinopril and coreg for combined systolic and diastolic cardiomyopathy/CHF. 11. Hemothorax on right Status: Acute Patient condition Guarded Plan: As above. This inpt stay is expected to cross 2 MNs from start of care Yes at 0845
--- NOTE | 2017-01-16 08:23 | ACUTE CARE PROGRESS NOTE (QUA) ---
Progress note: - CXR yesterday revealed no pneumothorax. No major additional output. Will place CT to water seal. Possible removal tomorrow. at 0823
--- NOTE | 2017-01-16 08:42 | ACUTE CARE PROGRESS NOTE (QUA) ---
Progress Notes Subjective Date 01/16/17 Time 0800 Note per nursing: has been stable; is on CPAP and maintaining good O2 sats; HR and RR are stable; remains in at fib. Chest sounds are clear; minimal drainage from CT; good UOP; is responsive and off propofol. IVF at 75/H Objective Findings Laboratory Tests 01/16/17 0721: ABG pH 7.31 L, ABG pCO2 (Temp Corrct 23.0 L, ABG pO2 (Temp Correct 99.4, ABG HCO3 11.3 L, ABG Total CO2 12.1 L, ABG O2 Sat (Calculated) 97.1, ABG Base Excess -14.3 L, Robert Test N/A, Vent Rate 0, POC PEEP 5, Pressure Support 10, Blood Gas Comments R BRACHIAL 01/16/17 0640: Sodium 146 H, Potassium 3.8, Chloride 114 H, Carbon Dioxide 14 L, BUN 18, Creatinine 0.8, Estimated Creat Clear 66, Estimated GFR (MDRD) 69, Glucose 135 H, Calcium 8.4 L, WBC 11.0 H, RBC 3.39 L, Hgb 9.6 L, Hct 30.0 L, MCV 88.5, RDW 15.8, Plt Count 212, MPV 7.8, Gran % 82.7 H, Gran # 9.1 H, Lymphocytes % 10.0, Monocytes % 5.9, Eosinophils % 1.1, Basophils % 0.3, Lymphocytes # 1.1, Monocytes # 0.7, Eosinophils # 0.1, Basophils # 0.0, PUBS MCHC 32.1, MCH 28.4 01/15/17 1712: POC Glucose 136 H 01/15/17 1316: ABG pH 7.41, ABG pCO2 (Temp Corrct 20.6 L, ABG pO2 (Temp Correct 88.2, ABG HCO3 12.8 L, ABG Total CO2 13.4 L, ABG O2 Sat (Calculated) 97, ABG Base Excess - 11.9 L, Robert Test N/A, POC PEEP 5, Pressure Support 10, Blood Gas Comments RIGHT BRACHIAL 01/15/17 1247: POC Glucose 154 H 01/15/17 1150: Hgb 9.0 L, Hct 26.5 L Vital Signs Date Time Temp Pulse Resp B/P Pulse O2 O2 Flow FiO2 Ox Delivery Rate 12/05 0800 15 12/05 0750 35 12/05 0750 100 12/05 0750 99.2 102 31 170/55 100 OXYGEN 12/05 0700 99.4 111 24 190/82 99 OXYGEN 12/05 0600 99.0 108 33 196/77 99 OXYGEN 12/05 0556 15 12/05 0500 99.0 90 24 157/56 100 OXYGEN 12/05 0430 15 12/05 0400 35 12/05 0400 100 12/05 0400 98.7 90 20 156/59 100 12/05 0300 99.1 99 24 154/65 100 OXYGEN 12/05 0202 15 12/05 0200 35 12/05 0200 100 12/05 0200 99.6 103 23 150/57 100 OXYGEN 12/05 0100 99.5 90 16 120/41 100 OXYGEN 12/05 0007 15 12/05 0000 35 12/05 0000 100 12/05 0000 99.4 102 26 164/67 100 12/04 2300 99.7 92 29 154/59 99 OXYGEN /04 2230 15 01/15 2227 100 OXYGEN 12/04 2200 35 12/04 2200 100 12/04 2200 97.9 94 24 140/63 100 OXYGEN 12/04 2029 15 /1999 35 12/1999 100 12/04 1999 100.3 90 27 139/54 100 12/04 1905 100.9 99 24 154/61 100 OXYGEN 15 12/04 1900 15 12/04 1800 35 12/04 1800 100 12/04 1800 100.8 105 26 148/65 100 OXYGEN 15 12/04 1753 15 / 1700 15 12/04 1700 95 30 156/53 100 OXYGEN 15 12/04 1600 15 12/04 1600 35 12/04 1600 100 12/04 1600 100.2 108 30 159/80 100 15 12/04 1600 108 30 159/80 100 OXYGEN 15 12/04 1530 100.2 104 27 156/61 100 OXYGEN 12/04 1400 35 12/04 1400 100 12/04 1400 100.3 107 31 157/55 100 OXYGEN 15 12/04 1357 15 12/04 1305 15 12/04 1300 100.3 98 31 155/65 100 OXYGEN 12/04 1200 35 12/04 1200 100.0 104 30 146/66 100 15 12/04 1200 100 12/04 1200 100.0 92 30 146/66 100 OXYGEN 01/15 1127 15 01/15 1115 100.0 91 20 129/56 01/15 1015 99.9 99 19 121/43 12 1000 15 12 1000 35 12/04 1000 100 12/ 1000 99.9 99 14 121/43 100 OXYGEN / 0925 100.0 84 22 115/48 12/ 0910 99.7 92 22 129/43 12/ 0900 99.7 100 22 135/44 100 OXYGEN 01/15 0855 99.7 90 22 126/45 /04 0840 99.8 107 21 122/44 Current Medications Sodium Chloride 1,000 ML .STK-MED ONE IV (DC) Acetaminophen 0 .STK-MED ONE PO (DC) Acetaminophen 0 .STK-MED ONE PO (DC) Digoxin 0.125 MG DAILY IV Amiodarone HCl 400 MG BID PO Norepinephrine Bitartrate 8 MG .Q25H IV Dextrose/Sodium Chloride 250 ML Sodium Chloride 1,000 ML .Q25H IV Sodium Chloride 10 ML PRN PRN IV Aspirin 81 MG DAILY PO Carvedilol 12.5 MG BID PO Lisinopril 5 MG BID PO Ticagrelor 90 MG BID PO Propofol 100 ML .Q2H41M IV Nitroglycerin 0.5 IN Q6 TP Clonidine HCl 0.1 MG ONCE PRN PO (DC) Morphine Sulfate 1 MG Q2HP PRN IV Nitroglycerin 0.4 MG [id number] PRN SL Temazepam 15 MG QHSP PRN PO Spironolactone 25 MG DAILY PO Sodium Chloride 25 ML PRN PRN IV Diagnostic Test (Pha) 1 EACH W/MEALS&HS FS Insulin Human [rDNA origin] SEE ADMIN CRITERIA FOR LOW INTENSITY SS W/MEALS&HS SC Acetaminophen 650 MG Q4HP PRN PO Ondansetron HCl 4 MG Q6HP PRN IV Sodium Chloride 10 ML PRN PRN IV 01/15 1500 12/ 2300 12/05 0700 Intake Total 954.5 617.9 483 Output Total 425 481 461 Balance 529.5 136.9 22 Intake, IV 694.5 617.9 483 Intake, Oral 0 0 Intake, Tube 260 0 Irrigant Output, Other 46 50 Output, Urine 425 435 411 Patient 166 lb Weight Last VS-Temp:99.2 B/P:170/55 Pulse:102 Resp:31 SaO2:100 OXYGEN Last weight lbs:165 oz:8 K.07 Method:Bed Scales Exam General appearance: alert, no acute distress, responsive Cardiovascular: Irregular with VR at 90's-120 Respiratory: clear to auscultation (bilat anterior and posterior), good air movement (bilaterally) Assessment/Plan Problem List 1. Atrial fibrillation with RVR Status: Acute 2. Hypotension Status: Resolved 3. Pneumothorax Status: Acute 4. S/P chest tube placement 5. NSTEMI (non-ST elevated myocardial infarction) 6. CHF (congestive heart failure) 7. Pulmonary edema 8. Respiratory failure 9. Type 2 diabetes mellitus Status: Chronic 10. HTN (hypertension) Status: Chronic 11. Hemothorax on right Status: Acute Patient condition Improved Plan: continue current care, will extubate This inpt stay is expected to cross 2 MNs from start of care Yes (Trice Shen APRN) Assessment/Plan Problem List 1. Atrial fibrillation with RVR Status: Acute 2. Hypotension Status: Resolved 3. Pneumothorax Status: Acute 4. S/P chest tube placement 5. NSTEMI (non-ST elevated myocardial infarction) 6. CHF (congestive heart failure) 7. Pulmonary edema 8. Respiratory failure 9. Type 2 diabetes mellitus Status: Chronic 10. HTN (hypertension) Status: Chronic 11. Hemothorax on right Status: Acute Comments: Patient seen and agree with above note. (Baldo Llamas MD) at 0842 at 0843
[2017-01-17] VITALS (13 sets, daily range): BP systolic 109–159; BP diastolic 41–75
[2017-01-17 06:15] LABS: LYMPH # 0.7 K/mm3 (0.7-4.5); LYMPH % 10.4 % (10-50.0)
[2017-01-17 07:19] LABS: HEMOGLOBIN 8.5 g/dL (12.2-16.2)
--- NOTE | 2017-01-17 09:08 | ACUTE CARE PROGRESS NOTE (QUA) ---
Progress Notes Subjective Date 01/17/17 Time 0800 Note Chest hurts on the right at CT site; hurts to take a deep breath; son at bedside; taking liquids without difficulty and tolerates well. Per nursing: she has done well. Tylenol helps her pain; minimal CT drainage Objective Findings Laboratory Tests 01/17/17 0628: POC Glucose 128 H 01/17/17 0555: Sodium 147 H, Potassium 3.9, Chloride 116 H, Carbon Dioxide 15 L, BUN 21 H, Creatinine 0.6, Estimated Creat Clear 89, Estimated GFR (MDRD) 96, Glucose 137 H, Calcium 8.4 L, Total Bilirubin 0.6, AST 19, ALT 21, Alkaline Phosphatase 49, Total Protein 5.1 L, Albumin 1.9 L, Globulin 3.2, Albumin/Globulin Ratio 0.6 L, WBC 7.0, RBC 2.95 L, Hgb 8.5 L, Hct 26.4 L, MCV 89.5, RDW 16.0, Plt Count 201, MPV 8.0, Gran % 81.5 H, Gran # 5.7, Lymphocytes % 10.4, Monocytes % 6.3, Eosinophils % 1.6, Basophils % 0.2, Lymphocytes # 0.7, Monocytes # 0.4, Eosinophils # 0.1, Basophils # 0.0, PUBS MCHC 31.9, MCH 28.6 01/16/17 2133: POC Glucose 112 H 01/16/17 1734: POC Glucose 142 H 01/16/17 1141: POC Glucose 156 H Vital Signs Date Time Temp Pulse Resp B/P Pulse O2 O2 Flow FiO2 Ox Delivery Rate 01/18 820 3 01/18 820 98.1 96 14 156/70 96 3 01/17 0800 3 01/17 08 98.1 80 14 159/75 100 OXYGEN 3 01/17 0630 3 01/17 0623 3 01/17 0600 96 14 148/58 96 OXYGEN 3 01/17 0503 3 01/17 0430 3 01/17 0400 99.7 78 20 135/58 100 3 01/17 0315 80 134/58 100 OXYGEN 3 01/17 0230 3 01/17 0200 74 20 139/54 100 OXYGEN 3 01/17 0110 3 01/17 0027 3 01/17 0000 76 20 109/41 100 OXYGEN 3 01/16 2304 3 01/16 2230 3 01/16 2200 92 20 157/68 100 OXYGEN 3 01/16 2120 3 01/16 2030 3 01/16 2015 99.0 89 25 159/51 12/ 1920 3 01/16 1900 89 25 159/51 100 OXYGEN 3 / 1800 88 26 165/58 100 OXYGEN 3 / 1755 3 01/16 1748 3 01/16 1700 96 25 154/67 100 OXYGEN 3 01/16 1624 99.0 85 24 166/75 100 3 / 1600 84 27 175/62 100 OXYGEN 3 01/16 1539 9 01/16 1525 9 01/16 1500 76 24 178/69 100 OXYGEN 3 01/16 1400 9 01/16 1400 79 25 165/52 100 OXYGEN 12 01/16 1302 9 01/16 1300 99.0 76 23 158/70 100 OXYGEN 12 01/16 1220 99.1 69 24 130/49 100 9 01/16 1200 99.1 73 28 162/71 100 OXYGEN 15 01/16 1146 9 01/16 1130 80 24 98/58 100 OXYGEN 9 01/16 1102 12 01/16 1102 99.1 82 26 149/63 100 OXYGEN 12 01/16 1024 83 30 138/50 100 OXYGEN 12 01/16 1000 12 01/16 1000 99.2 93 28 159/63 100 OXYGEN 12 01/16 0920 103 32 165/61 100 OXYGEN 12 01/16 0914 12 01/16 0905 101 36 172/65 100 OXYGEN 12 Current Medications Albuterol/Ipratropium 3 ML Q6H6 INH (UNV) Aspirin 81 MG DAILY PO Digoxin 0.125 MG DAILY IV Spironolactone 25 MG DAILY PO Lisinopril 0 .STK-MED ONE .ROUTE (DC) Acetaminophen 0 .STK-MED ONE PO (DC) Norepinephrine Bitartrate 8 MG .Q25H IV (CAN) Dextrose/Sodium Chloride 250 ML Acetaminophen 0 .STK-MED ONE PO (DC) Amiodarone HCl 400 MG BID PO Carvedilol 12.5 MG BID PO Lisinopril 5 MG BID PO Ticagrelor 90 MG BID PO Sodium Chloride 1,000 ML .[id number] IV Diagnostic Test (Pha) 1 EACH W/MEALS&HS FS Insulin Human [rDNA origin] SEE ADMIN CRITERIA FOR LOW INTENSITY SS W/MEALS&HS SC Nitroglycerin 0.5 IN Q6 TP Propofol 100 ML .Q2H41M IV (CAN) Acetaminophen 650 MG Q4HP PRN PO Morphine Sulfate 1 MG Q2HP PRN IV Nitroglycerin 0.4 MG [id number] PRN SL Ondansetron HCl 4 MG Q6HP PRN IV Sodium Chloride 10 ML PRN PRN IV Sodium Chloride 25 ML PRN PRN IV Sodium Chloride 10 ML PRN PRN IV Temazepam 15 MG QHSP PRN PO Digoxin 0.125 MG DAILY IV (DC) Amiodarone HCl 400 MG BID PO (DC) Norepinephrine Bitartrate 8 MG .Q25H IV (DC) Dextrose/Sodium Chloride 250 ML Sodium Chloride 1,000 ML .[id number] IV (DC) Sodium Chloride 10 ML PRN PRN IV (DC) Aspirin 81 MG DAILY PO (DC) Carvedilol 12.5 MG BID PO (DC) Lisinopril 5 MG BID PO (DC) Ticagrelor 90 MG BID PO (DC) Propofol 100 ML .Q2H41M IV (DC) Nitroglycerin 0.5 IN Q6 TP (DC) Morphine Sulfate 1 MG Q2HP PRN IV (DC) Nitroglycerin 0.4 MG [id number] PRN SL (DC) Temazepam 15 MG QHSP PRN PO (DC) Spironolactone 25 MG DAILY PO (DC) Sodium Chloride 25 ML PRN PRN IV (DC) Diagnostic Test (Pha) 1 EACH W/MEALS&HS FS (DC) Insulin Human [rDNA origin] SEE ADMIN CRITERIA FOR LOW INTENSITY SS W/MEALS&HS SC (DC) Acetaminophen 650 MG Q4HP PRN PO (DC) Ondansetron HCl 4 MG Q6HP PRN IV (DC) Sodium Chloride 10 ML PRN PRN IV (DC) 12/05 1500 12/05 2300 12/06 0700 Intake Total 448.2 916 716 Output Total 847 377 0867 Balance -56.8 491 -684 Intake, IV 448.2 676 716 Intake, Oral 0 240 Intake, Tube 0 Irrigant Output, Urine 353 183 2229 Patient 163 lb Weight Last VS-Temp:98.1 B/P:156/70 Pulse:96 Resp:14 SaO2:96 OXYGEN Last weight lbs:163 oz:5 K.077 Method:Bed Scales Exam General appearance: alert, will not open her eyes; answers questions in a clear voice Cardiovascular: At Fib with a controlled Vent rate in 70's-80's Respiratory: clear to auscultation (bilat anterior and posterior), good air movement ABD: non-distended, soft, no tenderness, no guarding, bowel sounds present Genitourinary: catheter in place Extremities: no leg edema Neuro: alert Assessment/Plan Problem List 1. Atrial fibrillation with RVR Status: Acute 2. Hypotension Status: Resolved 3. Pneumothorax Status: Acute 4. S/P chest tube placement 5. NSTEMI (non-ST elevated myocardial infarction) 6. CHF (congestive heart failure) 7. Pulmonary edema 8. Respiratory failure 9. Type 2 diabetes mellitus Status: Chronic 10. HTN (hypertension) Status: Chronic 11. Hemothorax on right Status: Acute Patient condition Stable Plan: continue current care, Teds; pulmonary toilet This inpt stay is expected to cross 2 MNs from start of care Yes (Trice Shen APRN) Assessment/Plan Problem List 1. Atrial fibrillation with RVR Status: Acute 2. Hypotension Status: Resolved 3. Pneumothorax Status: Acute 4. S/P chest tube placement 5. NSTEMI (non-ST elevated myocardial infarction) 6. CHF (congestive heart failure) 7. Pulmonary edema 8. Respiratory failure 9. Type 2 diabetes mellitus Status: Chronic 10. HTN (hypertension) Status: Chronic 11. Hemothorax on right Status: Acute Comments: Patient seen and agree with above note. (Baldo Llamas MD) at 0907
--- NOTE | 2017-01-17 09:08 | ACUTE CARE PROGRESS NOTE (QUA) ---
Progress Notes Subjective Date 01/17/17 Time 0800 Note Chest hurts on the right at CT site; hurts to take a deep breath; son at bedside; taking liquids without difficulty and tolerates well. Per nursing: she has done well. Tylenol helps her pain; minimal CT drainage Objective Findings Laboratory Tests 01/17/17 0628: POC Glucose 128 H 01/17/17 0555: Sodium 147 H, Potassium 3.9, Chloride 116 H, Carbon Dioxide 15 L, BUN 21 H, Creatinine 0.6, Estimated Creat Clear 89, Estimated GFR (MDRD) 96, Glucose 137 H, Calcium 8.4 L, Total Bilirubin 0.6, AST 19, ALT 21, Alkaline Phosphatase 49, Total Protein 5.1 L, Albumin 1.9 L, Globulin 3.2, Albumin/Globulin Ratio 0.6 L, WBC 7.0, RBC 2.95 L, Hgb 8.5 L, Hct 26.4 L, MCV 89.5, RDW 16.0, Plt Count 201, MPV 8.0, Gran % 81.5 H, Gran # 5.7, Lymphocytes % 10.4, Monocytes % 6.3, Eosinophils % 1.6, Basophils % 0.2, Lymphocytes # 0.7, Monocytes # 0.4, Eosinophils # 0.1, Basophils # 0.0, PUBS MCHC 31.9, MCH 28.6 01/16/17 2133: POC Glucose 112 H 01/16/17 1734: POC Glucose 142 H 01/16/17 1141: POC Glucose 156 H Vital Signs Date Time Temp Pulse Resp B/P Pulse O2 O2 Flow FiO2 Ox Delivery Rate 01/18 820 3 01/18 820 98.1 96 14 156/70 96 3 01/17 0800 3 01/17 08 98.1 80 14 159/75 100 OXYGEN 3 01/17 0630 3 01/17 0623 3 01/17 0600 96 14 148/58 96 OXYGEN 3 01/17 0503 3 01/17 0430 3 01/17 0400 99.7 78 20 135/58 100 3 01/17 0315 80 134/58 100 OXYGEN 3 01/17 0230 3 01/17 0200 74 20 139/54 100 OXYGEN 3 01/17 0110 3 01/17 0027 3 01/17 0000 76 20 109/41 100 OXYGEN 3 01/16 2304 3 01/16 2230 3 01/16 2200 92 20 157/68 100 OXYGEN 3 01/16 2120 3 01/16 2030 3 01/16 2015 99.0 89 25 159/51 12/ 1920 3 01/16 1900 89 25 159/51 100 OXYGEN 3 / 1800 88 26 165/58 100 OXYGEN 3 / 1755 3 01/16 1748 3 01/16 1700 96 25 154/67 100 OXYGEN 3 01/16 1624 99.0 85 24 166/75 100 3 / 1600 84 27 175/62 100 OXYGEN 3 01/16 1539 9 01/16 1525 9 01/16 1500 76 24 178/69 100 OXYGEN 3 01/16 1400 9 01/16 1400 79 25 165/52 100 OXYGEN 12 01/16 1302 9 01/16 1300 99.0 76 23 158/70 100 OXYGEN 12 01/16 1220 99.1 69 24 130/49 100 9 01/16 1200 99.1 73 28 162/71 100 OXYGEN 15 01/16 1146 9 01/16 1130 80 24 98/58 100 OXYGEN 9 01/16 1102 12 01/16 1102 99.1 82 26 149/63 100 OXYGEN 12 01/16 1024 83 30 138/50 100 OXYGEN 12 01/16 1000 12 01/16 1000 99.2 93 28 159/63 100 OXYGEN 12 01/16 0920 103 32 165/61 100 OXYGEN 12 01/16 0914 12 01/16 0905 101 36 172/65 100 OXYGEN 12 Current Medications Albuterol/Ipratropium 3 ML Q6H6 INH (UNV) Aspirin 81 MG DAILY PO Digoxin 0.125 MG DAILY IV Spironolactone 25 MG DAILY PO Lisinopril 0 .STK-MED ONE .ROUTE (DC) Acetaminophen 0 .STK-MED ONE PO (DC) Norepinephrine Bitartrate 8 MG .Q25H IV (CAN) Dextrose/Sodium Chloride 250 ML Acetaminophen 0 .STK-MED ONE PO (DC) Amiodarone HCl 400 MG BID PO Carvedilol 12.5 MG BID PO Lisinopril 5 MG BID PO Ticagrelor 90 MG BID PO Sodium Chloride 1,000 ML .[id number] IV Diagnostic Test (Pha) 1 EACH W/MEALS&HS FS Insulin Human [rDNA origin] SEE ADMIN CRITERIA FOR LOW INTENSITY SS W/MEALS&HS SC Nitroglycerin 0.5 IN Q6 TP Propofol 100 ML .Q2H41M IV (CAN) Acetaminophen 650 MG Q4HP PRN PO Morphine Sulfate 1 MG Q2HP PRN IV Nitroglycerin 0.4 MG [id number] PRN SL Ondansetron HCl 4 MG Q6HP PRN IV Sodium Chloride 10 ML PRN PRN IV Sodium Chloride 25 ML PRN PRN IV Sodium Chloride 10 ML PRN PRN IV Temazepam 15 MG QHSP PRN PO Digoxin 0.125 MG DAILY IV (DC) Amiodarone HCl 400 MG BID PO (DC) Norepinephrine Bitartrate 8 MG .Q25H IV (DC) Dextrose/Sodium Chloride 250 ML Sodium Chloride 1,000 ML .[id number] IV (DC) Sodium Chloride 10 ML PRN PRN IV (DC) Aspirin 81 MG DAILY PO (DC) Carvedilol 12.5 MG BID PO (DC) Lisinopril 5 MG BID PO (DC) Ticagrelor 90 MG BID PO (DC) Propofol 100 ML .Q2H41M IV (DC) Nitroglycerin 0.5 IN Q6 TP (DC) Morphine Sulfate 1 MG Q2HP PRN IV (DC) Nitroglycerin 0.4 MG [id number] PRN SL (DC) Temazepam 15 MG QHSP PRN PO (DC) Spironolactone 25 MG DAILY PO (DC) Sodium Chloride 25 ML PRN PRN IV (DC) Diagnostic Test (Pha) 1 EACH W/MEALS&HS FS (DC) Insulin Human [rDNA origin] SEE ADMIN CRITERIA FOR LOW INTENSITY SS W/MEALS&HS SC (DC) Acetaminophen 650 MG Q4HP PRN PO (DC) Ondansetron HCl 4 MG Q6HP PRN IV (DC) Sodium Chloride 10 ML PRN PRN IV (DC) 12/05 1500 12/05 2300 12/06 0700 Intake Total 448.2 916 716 Output Total 367 762 1905 Balance -56.8 491 -684 Intake, IV 448.2 676 716 Intake, Oral 0 240 Intake, Tube 0 Irrigant Output, Urine 081 943 1363 Patient 163 lb Weight Last VS-Temp:98.1 B/P:156/70 Pulse:96 Resp:14 SaO2:96 OXYGEN Last weight lbs:163 oz:5 K.077 Method:Bed Scales Exam General appearance: alert, will not open her eyes; answers questions in a clear voice Cardiovascular: At Fib with a controlled Vent rate in 70's-80's Respiratory: clear to auscultation (bilat anterior and posterior), good air movement ABD: non-distended, soft, no tenderness, no guarding, bowel sounds present Genitourinary: catheter in place Extremities: no leg edema Neuro: alert Assessment/Plan Problem List 1. Atrial fibrillation with RVR Status: Acute 2. Hypotension Status: Resolved 3. Pneumothorax Status: Acute 4. S/P chest tube placement 5. NSTEMI (non-ST elevated myocardial infarction) 6. CHF (congestive heart failure) 7. Pulmonary edema 8. Respiratory failure 9. Type 2 diabetes mellitus Status: Chronic 10. HTN (hypertension) Status: Chronic 11. Hemothorax on right Status: Acute Patient condition Stable Plan: continue current care, Teds; pulmonary toilet This inpt stay is expected to cross 2 MNs from start of care Yes (Trice Shen APRN) Assessment/Plan Problem List 1. Atrial fibrillation with RVR Status: Acute 2. Hypotension Status: Resolved 3. Pneumothorax Status: Acute 4. S/P chest tube placement 5. NSTEMI (non-ST elevated myocardial infarction) 6. CHF (congestive heart failure) 7. Pulmonary edema 8. Respiratory failure 9. Type 2 diabetes mellitus Status: Chronic 10. HTN (hypertension) Status: Chronic 11. Hemothorax on right Status: Acute Comments: Patient seen and agree with above note. (Baldo Llamas MD) at 0907
--- NOTE | 2017-01-17 10:24 | ACUTE CARE PROGRESS NOTE (QUA) ---
Progress Notes Subjective Date 01/17/17 Time 1021 Note 81 yo WF in bed. Extubated yesterday. Tolerating fluids. Chest tube still in place. [place] Cath pulled this AM by Dr. Alvarenga. Objective Findings Last VS-Temp:98.1 B/P:156/70 Pulse:96 Resp:14 SaO2:96 OXYGEN Last weight lbs:163 oz:5 K.077 Method:Bed Scales Exam General appearance: alert, awake, no acute distress Cardiovascular: irregularly irregular Respiratory: diminished breath sounds, rhonchi ABD: soft, no tenderness Extremities: moves all, no peripheral edema Neuro: alert, oriented Reviewed: medications, vital signs, lab results Assessment/Plan Problem List 1. Atrial fibrillation with RVR Status: Acute 2. Hypotension Status: Resolved 3. Pneumothorax Status: Acute Qualifiers: Pneumothorax type: postprocedural Qualified Code: J95.811 - Postprocedural pneumothorax 4. S/P chest tube placement 5. NSTEMI (non-ST elevated myocardial infarction) 6. CHF (congestive heart failure) Qualifiers: Congestive heart failure type: combined Congestive heart failure chronicity: acute Qualified Code: I50.41 - Acute combined systolic (congestive) and diastolic (congestive) heart failure 7. Pulmonary edema Qualifiers: Chronicity: acute Qualified Code: J81.0 - Acute pulmonary edema 8. Respiratory failure Qualifiers: Chronicity: acute Respiratory failure complication: unspecified whether with hypoxia or hypercapnia Qualified Code: J96.00 - Acute respiratory failure, unspecified whether with hypoxia or hypercapnia 9. Type 2 diabetes mellitus Status: Chronic 10. HTN (hypertension) Status: Chronic 11. Hemothorax on right Status: Acute Patient condition Stable Plan: check digoxin level. check CXR post swan-janice catheter removal. continue current meds. Continues to improve. This inpt stay is expected to cross 2 MNs from start of care Yes at 1504
--- NOTE | 2017-01-17 10:58 | RADIOLOGY REPORT PS360 ---
CHEST-PORTABLE HISTORY: Follow-up extubation IJ REMOVED ORDERING PHYSICIAN: Baldo Llamas MD PATIENT AGE: 81 years COMPARISON: 01/16/2017 FINDINGS: The endotracheal tube, nasogastric tube, and right IJ CVL has been removed. Right-sided chest tube remains in place. No obvious pneumothorax. There does remain consolidation in both lower lobes with small bilateral effusions. IMPRESSION: 1. Supporting devices removed as described above. 2. Right-sided chest tube remains in place. 3. Persistent bilateral lower lobe airspace disease/pneumonia with small bilateral effusions unchanged on the right is slightly worse on the left
--- NOTE | 2017-01-17 11:55 | ST BEDSIDE DYSPHAGIA EVAL ---
SUBJECTIVE-DYSPHAGIA Date: 01/17/17 Time: 929 Eval Type: Initial Certification - Admitted Date: 01/12/17 Primary Diagnosis: A FIB Reason for Consult: Dysphagia post intubation Pt/Caregiver Concerns: Pt and caregiver (son) report she is thirsty and mouth is very dry. She wants to drink and eat safely. they report no difficulty with liquids today or prior to admision. Onset of symptoms- 01/11/17 MEDICAL HX UNKNOWN Symptoms have worsened? no improved? no resolved? no since onset. Current Diet: clear fluids Allergies Coded Allergies: No Known Allergies (04/19/16) Home Medications Reported Medications Metformin HCL (Metformin) 1,000 MG PO BID CALCIUM CARBONATE/VITAMIN D3 (Calcium 500 + Vit D 400 Tablet) 1 TAB PO BID Vitamin E 400 IUNITS PO DAILY CHOLECALCIFEROL (VITAMIN D3) (Vitamin D3) 1,000 IUNITS PO DAILY Furosemide (Lasix 20MG) 10 MG PO DAILY WARFARIN SOD (Warfarin 5MG) 5 MG PO 3 DAYS/WEEK Multivitamin/Iron/Folic Acid (Centrum Adults Tablet) 1 EACH PO DAILY WARFARIN SOD (Warfarin 5MG) 7.5 MG PO 4 DAYS/WEEK Metronidazole 500 MG PO TID #21 TAB Levofloxacin (Levaquin 500MG) 500 MG PO DAILY #7 TAB Tramadol Hcl (Tramadol 50MG) 50 MG PO Q6HP PRN PAIN #15 Simvastatin 20 MG PO QHS Loratadine (Claritin 10MG) 10 MG PO DAILY Aspirin 81 MG PO DAILY NIFEDIPINE (Nifedipine ER) 30 MG PO QHS METOPROLOL SUCCINATE XL (Metoprolol Succinate) 100 MG PO DAILY Sertraline Hydrochloride (Sertraline 100MG) 100 MG PO DAILY #30 Discontinued Reported Medications AMOXICILLIN (Amoxicillin 875MG Tab) 875 MG PO BID #14 DC: 01/10/17 0824 Is this assessment r/t stroke? No OBJECTIVE COMMUNICATION/COGNITION Barriers to communication/cog? No ORAL-MOTOR STRUCTURE/FUNCTION Structure/Function WFL: Labial, Buccal, Lingual, Velar, Mandibular. Facial Asymmetry None Laryngeal Function Weak: Voluntary Cough, Throat Clearing. Vocal Quality Normal Dentition Good dentition RESPIRATORY STATUS/HISTORY Is resp status/hx a concern? Yes Intubated from 01/12/17 to 01/16/17 for a total of (days) 5 Multiple intubations x 1 Extubation Date: 01/16/17 Requires Oxygen: Cannula Breathes from mouth? No Risk-fatigue due to comp.resp? Yes DYSPHAGIA SIGNS W/CONSISTENCY Any S/S of Dysphagia? No ASSESSMENT/PLAN ASSESSMENT Impression Ms. Connolly, an 81 yo female, was seen at bedside for a clinical evaluation of swallowing. Ms. Connolly was intubated on 01/12/17 and extubated on 01/16/17. Her son reports and Ms. Connolly confirms she had no difficulty swallowing prior to intubation. Pt. reports she is tired and her mouth is very dry. she verbalized a strong desire to drink water. Her son reports she sometimes takes too much fluid by straw and he was given strategies to prevent that when assisting her with water/liquids. Ms. Connolly was oriented x 3. She was cooperative, able to follow multistep directions and asked questions during the assessment. She kept her eyes closed during the assessment but continued talking and was responsive. She reports she is still very tired from medication and son agrees. The following consistencies were given at bedside; Water, by spoon and straw. Puree (applesauce) by spoon, pudding by spoon, mechanical soft solids (breakfast bar). Ms. Connolly did not display any clinical symptoms of dysphagia with thin liquids, puree or pudding. She did cough when eating the mechanical soft solid. She reports she is too fatigued to chew and swallow solid foods at this time. Family was educated on positioning at 90 degrees during meals, and for 30 minutes following meals. Also to help her eat slowly and when she becomes too fatigued to discontinue food until she is more rested. Diet recommended: puree with thin regular liquids. Speech therapy will follow tomorrow to determine if diet may be advanced to include solids when she is less sleepy and regained strength. Dr. Llamas was contacted via phone. Bedside eval was reviewed and diet recommendation was made. He verbally approved the new diet over the phone. machine load clerk was advised of new diet and diet was changed. Thank you for this consult and please do not hesitate to contact Speech Therapy if further concerns arise. PLAN RECOMMENDATIONS Further skill serv. indicated Yes Diet: Puree with reg. liquids Speech Therapy indicated No Eval/reeval No Additional Evals recommended: Nutritional SWALLOW GUIDELINES High Aspiration Risk, Standard Aspiration Prec., Head Positioning, Assist w/All Meals, Eat at Slow Rate PATIENT/CAREGIVER EDUCATION Able-recall/restate what told? Yes Reinforcement needed? No RN educated on Diet Consistency, Swallow Guidelines Rehab Medicare G Code Plan Medicare/G Code eligible? Yes G Code Current Status: SWALLOWING (G8996) Current Status Modifier: 20%-39% IMPAIRED (CJ) G Code Goal Status: SWALLOWING (G8997) Goal Status Modifier: 20%-39% IMPAIRED (CJ) G Code Discharge Status: SWALLOWING (G8998) Discharge Status Modifier: 20%-39% IMPAIRED (CJ) If pt's [facility] benefits exhausted If patient's Medicare benefits are exhausted, please review: #Min Spent: 20 at 1158
--- NOTE | 2017-01-17 12:59 | ACUTE CARE PROGRESS NOTE (QUA) ---
Progress note: - CXR stable. No pneumothorax. CT on water seal for 24 hours. Removed chest tube. Recheck CXR tomorrow morning. at 0991
[2017-01-18] VITALS (23 sets, daily range): BP systolic 111–176; BP diastolic 45–92
--- NOTE | 2017-01-18 06:46 | ACUTE CARE PROGRESS NOTE (QUA) ---
Progress note: - Patient moved to ICU due to bed availability. No complaints. Denies shortness of breath. Anterior lung smith clear. Chest tube dressing intact. Check CXR. Monitor for increasing effusion. at 0645
--- NOTE | 2017-01-18 08:18 | ACUTE CARE PROGRESS NOTE (QUA) ---
Progress Notes Subjective Date 01/18/17 Time 0811 Note 81 yo WF in bed in NAD. Chest tube removed yesterday. Constipated. Still with some pain at insertion site. Telemetry shows A. fib with rates in the 90's. BP controlled. Objective Findings Last VS-Temp:98.0 B/P:111/52 Pulse:88 Resp:20 SaO2:100 OXYGEN Last weight lbs:165 oz:7 K.041 Method:Floor Scales Exam General appearance: alert, awake, no acute distress Cardiovascular: irregularly irregular Respiratory: diminished breath sounds Extremities: moves all, no peripheral edema Neuro: alert Reviewed: medications, vital signs, lab results Assessment/Plan Problem List 1. Atrial fibrillation with RVR Status: Acute Assessment/Plan: Rate around 90-100 bpm. No anticoagulation due to recent bleed at chest tube site and transfusion. 2. Hypotension Status: Resolved 3. Pneumothorax Status: Acute Qualifiers: Pneumothorax type: postprocedural Qualified Code: J95.811 - Postprocedural pneumothorax 4. S/P chest tube placement 5. NSTEMI (non-ST elevated myocardial infarction) 6. CHF (congestive heart failure) Qualifiers: Congestive heart failure type: combined Congestive heart failure chronicity: acute Qualified Code: I50.41 - Acute combined systolic (congestive) and diastolic (congestive) heart failure 7. Pulmonary edema Qualifiers: Chronicity: acute Qualified Code: J81.0 - Acute pulmonary edema 8. Respiratory failure Qualifiers: Chronicity: acute Respiratory failure complication: unspecified whether with hypoxia or hypercapnia Qualified Code: J96.00 - Acute respiratory failure, unspecified whether with hypoxia or hypercapnia 9. Type 2 diabetes mellitus Status: Chronic 10. HTN (hypertension) Status: Chronic 11. Hemothorax on right Status: Acute Patient condition Guarded Plan: Pt is steadily improving. Continue current meds at this time. Will get CT of chest with and without contrast to follow up on hemothorax. If resolved then re-consider anticoagulation for a. fib. This inpt stay is expected to cross 2 MNs from start of care Yes at 0955
--- NOTE | 2017-01-18 09:12 | ACUTE CARE PROGRESS NOTE (QUA) ---
Progress Notes Subjective Date 01/18/17 Time 0909 Note Patient feels better today, does not like pureed foods, wants a regular diet. Objective Findings Laboratory Tests 01/18/17 0639: POC Glucose 156 H 01/17/17 2052: POC Glucose 176 H 01/17/17 1801: POC Glucose 167 H 01/17/17 1147: POC Glucose 180 H 01/17/17 1010: Digoxin 1.26 Vital Signs Date Time Temp Pulse Resp B/P Pulse O2 O2 Flow FiO2 Ox Delivery Rate 01/18 0800 2 01/18 08 98.3 95 20 164/70 100 OXYGEN 2 01/18 0656 2 01/18 0620 2 01/18 0620 100 2 01/18 0600 2 01/18 06 98.0 88 20 111/52 100 OXYGEN 2 01/18 0508 2 01/18 0435 98.3 82 17 115/59 100 2 01/18 0400 2 01/18 0400 98.3 86 16 115/59 100 OXYGEN 2 01/18 0310 22 01/18 0310 2 01/18 0200 2 01/18 0200 99.6 93 26 136/62 97 OXYGEN 2 01/18 0115 2 01/18 0000 2 01/18 0000 98.6 87 14 118/64 99 OXYGEN 2 01/17 2325 14 01/17 2315 2 01/17 2200 2 01/17 2200 98.0 75 14 133/62 97 OXYGEN 2 01/17 2111 2 01/17 2000 97.7 01/17 2000 2 01/17 1950 98.6 87 14 145/55 99 2 01/17 1900 2 01/17 1847 2 01/17 1847 100 OXYGEN 2 01/17 1830 2 01/17 1800 84 18 136/69 100 OXYGEN 2 01/17 1700 2 01/17 1630 2 01/17 1600 97.9 84 18 136/69 100 2 01/17 1600 97.9 78 18 151/55 100 OXYGEN 2 01/17 1500 2 01/17 1404 16 01/17 1400 2 01/17 1400 97.9 85 16 125/51 100 OXYGEN 2 01/17 1300 2 01/17 1234 2 01/17 1234 97 OXYGEN 2 01/17 1200 98.1 87 16 138/49 100 OXYGEN 2 01/17 1149 3 01/17 1100 2 01/17 1043 16 01/17 1029 3 01/17 1000 81 16 132/54 100 OXYGEN 3 I&O Past 24 Hrs-ending at 0700 01/18 0700 Intake Total 410 Output Total 2600 Balance -2190 Last VS-Temp:98.3 B/P:164/70 Pulse:95 Resp:20 SaO2:100 OXYGEN Last weight lbs:165 oz:7 K.041 Method:Floor Scales Exam General appearance: alert, no acute distress Cardiovascular: irregularly irregular Respiratory: good air movement, diminished breath sounds (right base) ABD: normal bowel sounds, soft, no tenderness Extremities: no peripheral edema (NANNETTE hose in place) Assessment/Plan Problem List 1. Atrial fibrillation with RVR Status: Acute 2. Hypotension Status: Resolved 3. Pneumothorax Status: Acute 4. S/P chest tube placement 5. NSTEMI (non-ST elevated myocardial infarction) 6. CHF (congestive heart failure) 7. Pulmonary edema 8. Respiratory failure 9. Type 2 diabetes mellitus Status: Chronic 10. HTN (hypertension) Status: Chronic 11. Hemothorax on right Status: Acute This inpt stay is expected to cross 2 MNs from start of care Yes Comments: Patient improving, order PT and OT eval today as she will need some rehab after this hospitalization. at 0912
[2017-01-18 23:24] LABS: ARTERIAL TCO2 23.4 MMOL/L (23-27)
[2017-01-18 23:25] LABS: ALLEN'S TEST ACCEPTABLE; ARTERIAL ABE -2.3 MMOL/L (-2.4-+2.3); OXYGEN 100%
[2017-01-19] VITALS (33 sets, daily range): BP systolic 52–195; BP diastolic 25–114
[2017-01-19 06:07] LABS: LYMPH # 1.1 K/mm3 (0.7-4.5); LYMPH % 7.7 % (10-50.0)
[2017-01-19 06:10] LABS: HEMOGLOBIN 10.8 g/dL (12.2-16.2)
--- NOTE | 2017-01-19 08:23 | RADIOLOGY REPORT PS360 ---
CT CHEST W/ CONTRAST INDICATION: Follow-up hemothorax, shortness of breath hemothorax ORDERING PHYSICIAN: Baldo Llamas MD PATIENT AGE: 81 years COMPARISON: 01/14/2017 TECHNIQUE: Axial images are obtained without and with contrast. Sagittal and coronal reformatted images are reviewed as well. FINDINGS: No evidence of aortic aneurysm or dissection. Extensive coronary artery calcifications are present. No central pulmonary embolus apparent. The peripheral pulmonary arteries are not well opacified as the study was not tailored for the pulmonary arteries. There is a moderate sized right pleural effusion which has heterogeneous density suspicious for underlying debris or hemorrhage. There is significant atelectatic change of the right lower lobe from the effusion. There is a small left pleural effusion with prominent left lower lobe atelectasis. Mild precarinal adenopathy unchanged Chest tube has been removed. No evidence of pneumothorax. The right-sided effusion is slightly smaller in the right-sided atelectatic change are slightly increased compared to the exam of 01/14/2017. Post enhanced images do not demonstrate any active bleeding within the pleural space. There is diffuse subcutaneous edema of the lateral thoracic wall both sides. IMPRESSION: 1. Bilateral pleural effusions right larger than left with severe atelectasis in both lower lobes. 2. There is heterogeneous increased density in the right effusion suggesting underlying hemorrhage and/or debris with no active contrast extravasation. 3. Coronary artery disease with cardiomegaly
[2017-01-19 08:24] LABS: NEUTROPHILS 83 % (42-76)
--- NOTE | 2017-01-19 08:49 | RADIOLOGY REPORT PS360 ---
CHEST-PORTABLE HISTORY: Follow-up pneumothorax/pneumonia CONDITION CHANGE ORDERING PHYSICIAN: Baldo Llamas MD PATIENT AGE: 81 years COMPARISON: 01/17/2017 FINDINGS: Right-sided chest tube is no longer present. There is opacification of the right lung consistent with right-sided pleural effusion and underlying consolidation and/or volume loss. Left lower lobe consolidation with effusion also noted. These findings are not significant change. There is no evidence of pneumothorax. There is cardiomegaly. IMPRESSION: Continued bilateral effusions and consolidation right worse left. Removal of chest tube with no evidence of pneumothorax
--- NOTE | 2017-01-19 08:52 | ACUTE CARE PROGRESS NOTE (QUA) ---
Progress Notes Subjective Date 01/19/17 Time 0838 Note 81 yo WF in ICU with increased SOA overnight. Given IV lasix with about 2500 ml output and mild improvement in symptoms. States she is tired of fighting. Reportedly CXR showed only mild increased fluid in lungs. Official report pending. Objective Findings Last VS-Temp:97.5 B/P:195/103 Pulse:104 Resp:45 SaO2:89 OXYGEN Last weight lbs:165 oz:7 K.041 Method:Floor Scales Exam General appearance: awake, lethargic Cardiovascular: tachycardia Respiratory: tight chest with wheezing and restricted air movement. Extremities: edema Neuro: drowsy with difficult to hear speech Reviewed: medications, vital signs, lab results Assessment/Plan Problem List 1. Atrial fibrillation with RVR Status: Acute 2. Hypotension Status: Resolved 3. Pneumothorax Status: Acute Qualifiers: Pneumothorax type: postprocedural Qualified Code: J95.811 - Postprocedural pneumothorax 4. S/P chest tube placement 5. NSTEMI (non-ST elevated myocardial infarction) 6. CHF (congestive heart failure) Qualifiers: Congestive heart failure type: combined Congestive heart failure chronicity: acute Qualified Code: I50.41 - Acute combined systolic (congestive) and diastolic (congestive) heart failure 7. Pulmonary edema Assessment/Plan: Recurrent last evening. Diuresing after IV lasix last night. Still SOA and getting fatigued. Qualifiers: Chronicity: acute Qualified Code: J81.0 - Acute pulmonary edema 8. Respiratory failure Qualifiers: Chronicity: acute Respiratory failure complication: unspecified whether with hypoxia or hypercapnia Qualified Code: J96.00 - Acute respiratory failure, unspecified whether with hypoxia or hypercapnia 9. Type 2 diabetes mellitus Status: Chronic 10. HTN (hypertension) Status: Chronic 11. Hemothorax on right Status: Acute Patient condition Guarded Plan: Preliminary echo today shows continued improved LVEF. continue IV lasix. check ABG and repeat CXR this AM. Surgery to re-assess for possible chest tube to drain Right hemothorax if worse. Start antibiotics for possible pneumonia. DNR/DNI rescinded. Pt may need intubation and vent for short period of time if no quick improvement. Needs nutrition. Pt seen with Dr. Alvarenga and Dr. Lalmas this AM. This inpt stay is expected to cross 2 MNs from start of care Yes at 0972
--- NOTE | 2017-01-19 09:15 | ACUTE CARE PROGRESS NOTE (QUA) ---
Progress Notes Subjective Date 01/19/17 Time 0910 Note Events of overnight reviewed. Patient with some respiratory distress and decline in condition. She was given Lasix and diuresed several liters of urine. Objective Findings Laboratory Tests 01/19/17 0646: POC Glucose 245 H 01/19/17 0600: WBC 14.4 H, RBC 3.72 L, Hgb 10.8 L, Hct 32.8 L, MCV 88.2, RDW 17.4, Plt Count 460 H, MPV 8.0, Gran % 85.8 H, Gran # 12.6 H, Total Counted 100, Lymphocytes % 7.7 L, Monocytes % 4.2, Eosinophils % 2.0, Basophils % 0.3, Neutrophils 83 H, Band Neutrophils 6, Lymphocytes (Manual) 2 L, Lymphocytes # 1.1, Monocytes (Manual) 9, Monocytes # 0.6, Eosinophils # 0.3, Basophils # 0.1, Platelet Estimate SLIGHT INCREASE, PUBS MCHC 32.4, MCH 28.6 01/19/17 0515: Sodium 141, Potassium 4.4, Chloride 106, Carbon Dioxide 21 L, BUN 15, Creatinine 0.6, Estimated Creat Clear 89, Estimated GFR (MDRD) 96, Glucose 244 H, Calcium 8.6 01/19/17 0440: POC Glucose 236 H 01/18/17 2321: ABG pH 7.41, ABG pCO2 (Temp Corrct 36.0, ABG pO2 (Temp Correct 106.0 H, ABG HCO3 22.0, ABG Total CO2 23.4, ABG O2 Sat (Calculated) 97, ABG Base Excess -2.3, Robert Test ACCEPTABLE, Blood Gas Comments RIGHT RADIAL 01/18/17 1950: POC Glucose 269 H 01/18/17 1746: POC Glucose 170 H 01/18/17 1330: POC Glucose 187 H Vital Signs Date Time Temp Pulse Resp B/P Pulse O2 O2 Flow FiO2 Ox Delivery Rate 01/19 0650 2 01/19 0635 2 01/19 0635 89 2 01/19 0530 97.5 104 45 195/103 89 4 01/19 0450 4 01/19 0410 3 01/19 0400 99.0 103 36 179/114 89 OXYGEN 01/19 0257 3 01/19 0200 107 31 154/84 92 OXYGEN 3 01/19 0100 3 01/19 0025 97.8 87 29 136/66 94 OXYGEN 01/19 0020 15 01/18 2300 15 01/18 2130 88 36 151/72 88 OXYGEN 3 01/18 2100 3 01/18 2100 105 35 125/45 93 OXYGEN 2 01/19 2020 2 01/19 2000 109 34 129/76 91 OXYGEN 2 01/18 1940 32 01/18 1940 99.1 123 41 163/68 89 01/18 1930 99.1 88 36 163/68 89 3 01/18 1839 2 01/18 1807 2 01/18 1800 104 29 159/68 95 OXYGEN 2 01/18 1700 2 01/18 1700 97 27 148/70 100 OXYGEN 2 01/18 1612 2 01/18 1611 98.3 97 20 143/81 98 OXYGEN 2 01/18 1600 98.3 97 20 143/81 98 2 01/18 1500 2 01/18 1500 93 20 157/84 96 OXYGEN 2 01/18 1350 2 01/18 1300 2 01/18 1300 87 20 135/68 95 OXYGEN 2 01/18 1200 98.3 97 20 143/81 98 2 01/18 1150 2 01/18 1148 98.5 100 20 165/92 97 OXYGEN 2 01/18 1130 97 ROOM AIR 01/18 1100 2 01/18 1100 108 20 176/81 95 OXYGEN 2 01/18 1000 2 01/18 1000 98.3 97 20 143/81 98 2 01/18 0939 20 I&O Past 24 Hrs-ending at 0700 12/08 0700 Intake Total 2660 Output Total 5300 Balance -2640 Last VS-Temp:97.5 B/P:195/103 Pulse:104 Resp:45 SaO2:89 OXYGEN Last weight lbs:165 oz:7 K.041 Method:Floor Scales Exam General appearance: increase work of breathing, Patient seen at bedside with Dr. Alvarenga Cardiovascular: regular rate & rhythm Respiratory: diminished breath sounds, rhonchi ABD: normal bowel sounds, soft, no tenderness Extremities: edema (trace bilat. legs) Assessment/Plan Problem List 1. Atrial fibrillation with RVR Status: Acute 2. Hypotension Status: Resolved 3. Pneumothorax Status: Acute 4. S/P chest tube placement 5. NSTEMI (non-ST elevated myocardial infarction) 6. CHF (congestive heart failure) 7. Pulmonary edema 8. Respiratory failure 9. Type 2 diabetes mellitus Status: Chronic 10. HTN (hypertension) Status: Chronic 11. Hemothorax on right Status: Acute This inpt stay is expected to cross 2 MNs from start of care Yes Comments: Dr. Alvarenga has recommended aggressive treatment. Patient and family have been discussing end of life issues. Will check ECHO now and give another dose of IV Lasix now. at 0915
[2017-01-19 09:56] LABS: ARTERIAL ABE -1.5 MMOL/L (-2.4-+2.3); ARTERIAL PO2 76.4 MMHG (80-100); ARTERIAL TCO2 24.4 MMOL/L (23-27)
[2017-01-19 09:57] LABS: ALLEN'S TEST ACCEPTABLE; OXYGEN 98% FACE TENT
--- NOTE | 2017-01-19 10:38 | RADIOLOGY REPORT PS360 ---
CHEST-PORTABLE HISTORY: LOW SATS, BREATHING DIFFICULTIES ORDERING PHYSICIAN: Baldo Llamas MD PATIENT AGE: 81 years COMPARISON: 01/18/2017 FINDINGS: There is cardiomegaly without failure. There remains opacification of the right chest consistent with moderate sized effusion with atelectasis as seen on the recent chest CT. Left lower lobe opacification also noted consistent with effusion with atelectasis. No evidence of pneumothorax. IMPRESSION: Overall no change in the bilateral effusions with airspace disease right more extensive than left
--- NOTE | 2017-01-19 11:25 | RADIOLOGY REPORT PS360 ---
CHEST-PORTABLE 1109 hours HISTORY: Follow-up chest tube placement CHEST TUBE ORDERING PHYSICIAN: Baldo Llamas MD PATIENT AGE: 81 years COMPARISON: Same day FINDINGS: Status post insertion of right chest tube. The tip is near the right apex. No evidence of pneumothorax. Persistent opacification of the right chest consistent with posterior layering effusion and underlying consolidation/volume loss. Right effusion may be slightly smaller. No change left lower lobe consolidation/volume loss with effusion. IMPRESSION: Status post right chest tube placement as described above with persistent bilateral effusions and consolidation/volume loss
--- NOTE | 2017-01-19 11:48 | RADIOLOGY REPORT PS360 ---
PROCEDURE: 2-D study only INDICATIONS FOR THE TEST: Chest pain COPD Heart Murmur Tobacco Smoking Palpitations Fatigue Syncope Edema Hypertension Diabetes Mellitus Rheumatic Fever SOB SANTANA Obesity Hyperlipidemia Family History HD Additional History LIMITED ECHO RECHECK EF ONLY AF,DM,CP,NH,HTN PATIENT INFORMATION HEIGHT: 64 WEIGHT:170 GENDER: Female B/P:115/63 2-D/M-MODE INTERPRETATION: 2-D MEASUREMENTS OBSERVED VALUES IN CMS Right Ventricular Dimension (RVDd) Interventricular Septum (Thickness)(IVsd) Left Ventricular Internal Dimensions(LVIDd) Left Ventricular Posterior Wall (Thickness)(LVPWd) Aortic Root Aortic Cusp Separation Left Atrial Dimensions (LAD) 2D 1. Technically difficult study because of the patient's factor and poor acoustic windows 2. The left atrium is mildly enlarged, left ventricle is normal size, there is mild concentric left ventricular hypertrophy, visually estimated ejection fraction approximately 45%, there appears to be basal septal hypokinesis. Endocardial surface of poorly visualized. 3. The right atrium is normal size, right ventricle is normal size and contractility. 4. The aortic valve is minimally thickened and fibrosed. 5. The mitral valve has mitral calcification. 6. The tricuspid valve leaflets are minimally thickened. 7. The pulmonic valve is poorly visualized. 8. No significant pericardial effusion noted. DOPPLER INTERROGATION: No Doppler performed CONCLUSION: 1. Technically difficult study because of the patient's factor and poor acoustic windows 2. Mildly enlarged left atrium, normal left ventricular size, mild concentric left ventricular hypertrophy, visually estimated ejection fraction 45% with segmental wall motion abnormality described above. 3. No significant pericardial effusion noted.
--- NOTE | 2017-01-19 11:54 | Procedure Note ---
Bedside procedures Chest tube Date of procedure: 01/19/17 Time of procedure: 1115 Chest Tube Insertion: Risks/benefits discussed with pt/guardian? Yes Chest Tube Location posterior axillary line Anesthesia 1% Lidocaine Size of [place] Tube (cm) 32 Chest Tube Procedure sterile drapes applied, orr of air heard, tube sutured to skin, connected to suction, sterile dressing applied, post procedure CXR. Tube Drainage: other Additonal information: Asked to reevaluate placement for possible placement of new right-sided chest tube due to pulmonary decompensation. Consent was obtained. Her RIGHT chest was prepped and draped in standard surgical fashion. Local anesthetic was infiltrated. Incision was made in the posterior axillary line near approximately the sixth intercostal space. Blunt dissection was carried out bluntly dissecting superiorly and over the rib into the intercostal space. This was entered and there was dark thin pleural fluid which exuded from the wound. 32 [place] chest tube was inserted into the RIGHT chest and oriented posteriorly. It was secured with 0 Nurolon horizontal mattress suture. Dressing was applied. It was difficult to quantify the exact amount of pleural fluid evacuated however estimate 300 mL. Post procedure chest x-ray revealed excellent placement with improvement of effusion. at 1154
--- NOTE | 2017-01-19 11:54 | Procedure Note ---
Bedside procedures Chest tube Date of procedure: 01/19/17 Time of procedure: 1115 Chest Tube Insertion: Risks/benefits discussed with pt/guardian? Yes Chest Tube Location posterior axillary line Anesthesia 1% Lidocaine Size of [place] Tube (cm) 32 Chest Tube Procedure sterile drapes applied, orr of air heard, tube sutured to skin, connected to suction, sterile dressing applied, post procedure CXR. Tube Drainage: other Additonal information: Asked to reevaluate placement for possible placement of new right-sided chest tube due to pulmonary decompensation. Consent was obtained. Her RIGHT chest was prepped and draped in standard surgical fashion. Local anesthetic was infiltrated. Incision was made in the posterior axillary line near approximately the sixth intercostal space. Blunt dissection was carried out bluntly dissecting superiorly and over the rib into the intercostal space. This was entered and there was dark thin pleural fluid which exuded from the wound. 32 [place] chest tube was inserted into the RIGHT chest and oriented posteriorly. It was secured with 0 Nurolon horizontal mattress suture. Dressing was applied. It was difficult to quantify the exact amount of pleural fluid evacuated however estimate 300 mL. Post procedure chest x-ray revealed excellent placement with improvement of effusion. at 1154
--- NOTE | 2017-01-19 12:27 | RADIOLOGY REPORT PS360 ---
CHEST-PORTABLE 11:50 AM HISTORY: INTUBATION 1135 CHEST TUBE PLACED 01/19 ORDERING PHYSICIAN: Baldo Llamas MD PATIENT AGE: 81 years COMPARISON: Previous exam from the same day FINDINGS: Endotracheal tube has been inserted. The tip is 3.7 cm by the wilber. Bilateral effusions with bilateral atelectasis/consolidation once again noted. The right effusion may be slightly smaller. No evidence of pneumothorax. No evidence of CHF. IMPRESSION: Interval endotracheal tube placement in good position with no other changes.
[2017-01-19 13:02] LABS: ALLEN'S TEST ACCEPTABLE; ARTERIAL ABE -3.7 MMOL/L (-2.4-+2.3); ARTERIAL PO2 75.6 MMHG (80-100); ARTERIAL TCO2 21.6 MMOL/L (23-27); OXYGEN 60; PRESSURE SUPPORT 10; VENT RATE 16
--- NOTE | 2017-01-19 13:20 | RADIOLOGY REPORT PS360 ---
KUB (SINGLE VIEW) HISTORY: CENTRAL LINE INSERTED INTO FEMORAL ARTERY ORDERING PHYSICIAN: Baldo Llamas MD PATIENT AGE: 81 years COMPARISON: None FINDINGS: Right common femoral venous line has been inserted. The tip is to the right of L5 in the region of the distal inferior vena cava. Nonspecific bowel gas pattern with gas-filled loops of small and large bowel. No acute bony anomalies. IMPRESSION: Central venous line from the right common femoral approach with the tip in region of the distal inferior vena cava
--- NOTE | 2017-01-19 15:25 | RADIOLOGY REPORT PS360 ---
CHEST-PORTABLE HISTORY: NG TUBE PLACED FOR FEEDINGS ORDERING PHYSICIAN: Baldo Llamas MD PATIENT AGE: 81 years COMPARISON: None available FINDINGS: Nasogastric tube tip is in region of the body the stomach. Nonspecific bowel gas pattern. Bilateral pleural effusions with underlying consolidation/volume loss once again noted. Right-sided chest tube is in place. Endotracheal tube is present with the tip 4.5 cm above the wilber. IMPRESSION: Good placement of nasogastric tube
--- NOTE | 2017-01-19 16:42 | ACUTE CARE PROGRESS NOTE (QUA) ---
Progress Notes Subjective Date 01/19/17 Time 1637 Note Events of today reviewed. Patient had a chest tube placed on the right side and subsequently developed hypotension, she was intubated and Levophed was started. A right femoral vein triple lumen catheter was placed by Dr. Alvarenga. Tube feedings were initiated. Assessment/Plan Problem List 1. Atrial fibrillation with RVR Status: Acute 2. Hypotension Status: Resolved 3. Pneumothorax Status: Acute 4. S/P chest tube placement 5. NSTEMI (non-ST elevated myocardial infarction) 6. CHF (congestive heart failure) 7. Pulmonary edema 8. Respiratory failure 9. Type 2 diabetes mellitus Status: Chronic 10. HTN (hypertension) Status: Chronic 11. Hemothorax on right Status: Acute This inpt stay is expected to cross 2 MNs from start of care Yes Comments: DNR/comfort measures designation rescinded today. Will attempt to wean Levophed today and will start D51/2 NS with 20 KCL at 75 mL per hr. at 1588
[2017-01-20] VITALS (22 sets, daily range): BP systolic 82–184; BP diastolic 29–90
[2017-01-20 05:02] LABS: LYMPH # 0.7 K/mm3 (0.7-4.5); LYMPH % 5.7 % (10-50.0)
[2017-01-20 05:29] LABS: HEMOGLOBIN 9.5 g/dL (12.2-16.2)
[2017-01-20 05:56] LABS: ARTERIAL ABE -0.9 MMOL/L (-2.4-+2.3); ARTERIAL PO2 130.4 MMHG (80-100); ARTERIAL TCO2 22.8 MMOL/L (23-27); OXYGEN 50
[2017-01-20 05:57] LABS: ALLEN'S TEST PATIENT UNABLE; PRESSURE SUPPORT 10; VENT RATE 16
--- NOTE | 2017-01-20 07:45 | ACUTE CARE PROGRESS NOTE (QUA) ---
Progress Notes Subjective Date 01/20/17 Time 0744 Note Uneventful night. Remains sedated on ventilator; Propafol has been weaned some. Has weaned off Levophed. Urine OP has decreased some. Had ~400 cc out from chest tube. Tolerating tube feedings at goal rate Objective Findings Laboratory Tests 01/20/17 0612: POC Glucose 388 *H 01/20/17 0545: ABG pH 7.52 H, ABG pCO2 (Temp Corrct 27.4 L, ABG pO2 (Temp Correct 130.4 H, ABG HCO3 21.9 L, ABG Total CO2 22.8 L, ABG O2 Sat (Calculated) 98.6, ABG Base Excess -0.9, Robert Test PATIENT UNABLE, Vent Rate 16, Tidal Volume 450, POC PEEP 5, Pressure Support 10, Blood Gas Comments RIGHT RADIAL 01/20/17 0425: Sodium 142, Potassium 3.7, Chloride 106, Carbon Dioxide 27, BUN 23 H, Creatinine 1.0, Estimated Creat Clear 53, Estimated GFR (MDRD) 53 L, Glucose 370 H, Calcium 8.7, Total Bilirubin 0.6, AST 19, ALT 22, Alkaline Phosphatase 61, Total Protein 5.8 L, Albumin 2.0 L, Globulin 3.8 H, Albumin/Globulin Ratio 0.5 L, WBC 11.4 H, RBC 3.34 L, Hgb 9.5 L, Hct 30.9 L, MCV 92.5, RDW 18.0 H, Plt Count 384, MPV 8.9, Gran % 90.4 H, Gran # 10.3 H, Lymphocytes % 5.7 L, Monocytes % 3.3, Eosinophils % 0.3, Basophils % 0.2, Lymphocytes # 0.7, Monocytes # 0.4, Eosinophils # 0.0, Basophils # 0.0, PUBS MCHC 30.9 L, MCH 28.5 01/19/17 1955: POC Glucose 215 H 01/19/17 1719: POC Glucose 202 H 01/19/17 1301: ABG pH 7.43, ABG pCO2 (Temp Corrct 32.0 L, ABG pO2 (Temp Correct 75.6 L, ABG HCO3 20.6 L, ABG Total CO2 21.6 L, ABG O2 Sat (Calculated) 94.3, ABG Base Excess -3.7 L, Robert Test ACCEPTABLE, Vent Rate 16, Tidal Volume 450, POC PEEP 5, Pressure Support 10, Blood Gas Comments R [facility] 01/19/17 0956: ABG pH 7.40, ABG pCO2 (Temp Corrct 38.1, ABG pO2 (Temp Correct 76.4 L, ABG HCO3 23.2, ABG Total CO2 24.4, ABG O2 Sat (Calculated) 94.7, ABG Base Excess -1.5, Robert Test ACCEPTABLE, Blood Gas Comments R [facility] Microbiology 01/19 1800 SPUTUM: Sputum Culture - RES 01/19 1800 SPUTUM: Gram Stain - RES 01/19 1150 SPUTUM: Sputum Culture - ORD 01/19 1150 SPUTUM: Gram Stain - ORD Last VS-Temp:101.3 B/P:136/54 Pulse:94 Resp:27 SaO2:96 OXYGEN Last weight lbs:165 oz:7 K.041 Method:Floor Scales Exam General appearance: sedated on ventilator. Color is good Cardiovascular: regular rate & rhythm Respiratory: diminshed BS in bases. Few rhonchi, no wheezes ABD: non-distended, normal bowel sounds, soft Extremities: no peripheral edema Assessment/Plan Problem List 1. Respiratory failure 2. Atrial fibrillation with RVR Status: Acute 3. Hypotension Status: Resolved 4. Pneumothorax Status: Acute 5. S/P chest tube placement 6. NSTEMI (non-ST elevated myocardial infarction) 7. CHF (congestive heart failure) 8. Pulmonary edema 9. Type 2 diabetes mellitus Status: Chronic 10. HTN (hypertension) Status: Chronic 11. Hemothorax on right Status: Acute Patient condition Guarded Plan: Tube feedings are at goal rate and being tolerated thus with decrease IVF to KVO. May slowly wean vent as tolerated. Chest tube recs per surgery. Condition guarded. This inpt stay is expected to cross 2 MNs from start of care Yes at 1303
--- NOTE | 2017-01-20 09:16 | RADIOLOGY REPORT PS360 ---
CHEST-PORTABLE COMPARISON: Portable upright chest 01/29/2017 HISTORY: Checking tube placements TECHNIQUE: Oral semiupright chest FINDINGS: The chest tube remains in the right chest with tip near the apex. The endotracheal tube remains in satisfactory position approximately 4.5 semiurgent above the wilber. Diffuse ill-defined opacities seen in the right mid and lower lung field probably due to a combination of pleural fluid layering on the right lung and ill-defined pneumonic infiltrates in the right lower lobe and right perihilar region. The left lung field is grossly clear though there is blunting of left costo phrenic angle. Cardiac size is normal. IMPRESSION: Stable chest tube and endotracheal tube slightly more coarse appearing opacities in the right perihilar region extending into the right upper lobe than seen on yesterday's film suggesting developing pneumonic infiltrates along with underlying right pleural effusion
--- NOTE | 2017-01-20 10:38 | SURGEON PROGRESS NOTE ---
Subjective data Subjective data: Nursing reports no changes this AM. Objective data Vitals,I&O,and Labs: Vital signs, intake and output,and available lab data for the last 24 hours is as noted below. Vital Signs Date Time Temp Pulse Resp B/P Pulse O2 O2 Flow FiO2 Ox Delivery Rate 01/20 1000 15 01/20 1000 100.3 92 27 128/53 95 OXYGEN 15 01/20 0800 40 01/20 0800 101.3 94 27 136/54 96 OXYGEN 01/20 0800 101.3 94 27 136/54 96 / 0753 15 01/20 0753 101.3 91 33 140/57 96 OXYGEN 15 01/20 0700 99.8 100 33 126/61 97 OXYGEN 01/20 0615 99 36 184/90 93 OXYGEN 01/20 0600 40 01/20 0600 95 01/20 0600 99.8 91 17 99/39 98 OXYGEN 01/20 0550 97 01/20 0400 50 01/20 0400 97 01/20 0400 98.8 108 28 114/49 95 01/20 0300 99.7 103 26 149/75 96 OXYGEN 01/20 0200 50 01/20 0200 97 01/20 0200 98.3 96 26 144/73 97 OXYGEN 01/20 0100 99.1 92 24 133/67 97 OXYGEN 01/20 0000 50 / 0000 99.3 98 19 99/37 98 / 0000 98 / 2300 109 26 110/44 94 OXYGEN 01/19 2200 50 01/19 2200 98 / 2200 101.0 103 24 150/62 94 OXYGEN 01/19 2100 99.1 103 21 132/61 95 OXYGEN 01/19 2000 50 /08 2000 94 12/08 2000 99.2 99 26 132/61 95 /08 1900 15 01/19 1811 87 156/76 92 15 01/19 1800 15 01/19 1800 50 /08 1800 94 12/08 1800 99 26 161/66 95 OXYGEN 15 01/19 1700 15 01/19 1700 93 29 166/65 96 OXYGEN 15 01/19 1600 15 08 1600 50 12/08 1600 99.2 98 27 151/79 97 15 01/19 1600 99.2 98 27 151/79 97 OXYGEN 15 01/19 1600 96 12/08 1500 15 01/19 1500 99.1 87 25 135/57 97 OXYGEN 15 01/19 1400 15 01/19 1400 50 01/19 1400 98.1 78 30 116/57 98 OXYGEN 15 01/19 1300 98.1 76 14 91/53 99 OXYGEN 15 01/19 1300 72 25 80/47 99 OXYGEN 15 01/19 1200 15 01/19 1200 60 01/19 1200 98.1 76 26 156/76 97 15 01/19 1200 96 01/19 1200 98.4 85 20 158/87 92 OXYGEN 15 01/19 1137 87 26 69/38 86 OXYGEN 15 01/19 1120 75 29 52/25 86 OXYGEN 15 01/19 1118 75 29 59/25 86 OXYGEN 15 01/19 1116 67 29 61/37 86 OXYGEN 15 01/19 1111 74 32 62/28 84 OXYGEN 15 01/19 1109 84 32 74/36 84 OXYGEN 15 01/19 1107 85 34 70/30 84 OXYGEN 15 01/19 1106 79 20 66/38 84 OXYGEN 15 01/19 1102 71 36 75/35 95 OXYGEN 15 01/19 1101 79 34 76/42 86 OXYGEN 15 01/19 1100 15 01/19 1100 79 34 76/42 86 OXYGEN 15 01/19 1059 80 30 85/42 87 OXYGEN 15 01/19 1057 85 33 85/45 87 OXYGEN 15 01/19 1055 85 33 85/45 87 OXYGEN 15 01/19 1047 80 33 84/44 89 OXYGEN 15 01/19 1500 08 2300 01/20 0700 Intake Total 1785 679 Output Total 1650 480 280 Balance -1650 1305 399 Intake, IV 1546 489 Intake, Oral 25 Intake, Tube 124 190 Feeding Intake, Tube 90 0 Irrigant Output, 350 Estimated Blood Loss Output, Urine 1300 480 280 Laboratory Tests Test Result Date Time Blood Gas ABG pH (MMOL/L) 7.52 01/20 545 ABG pCO2 (Temp Corrct (MMHG) 27.4 01/20 545 ABG pO2 (Temp Correct (MMHG) 130.4 01/20 545 ABG HCO3 (MMOL/L) 21.9 01/20 545 ABG Total CO2 (MMOL/L) 22.8 01/20 545 ABG O2 Sat (Calculated) (%) 98.6 01/20 545 ABG Base Excess (MMOL/L) -0.9 01/20 545 Robert Test PATIENT UNABLE 01/20 545 Vent Rate 16 01/20 545 Tidal Volume 450 01/20 545 POC PEEP 5 01/20 545 Pressure Support 10 01/20 545 Blood Gas Comments RIGHT RADIAL 01/20 545 Chemistry Sodium (mmoL/L) 142 01/20 425 Potassium (mmoL/L) 3.7 01/20 425 Chloride (mmoL/L) 106 01/20 425 Carbon Dioxide (mmoL/L) 27 01/20 425 BUN (mg/dL) 23 01/20 425 Creatinine (mg/dL) 1.0 01/20 425 Estimated Creat Clear (ML/MIN) 53 01/20 425 Estimated GFR (MDRD) (ML/MIN) 53 01/20 425 Glucose (mg/dL) 370 01/20 425 POC Glucose (mg/dl) 388 01/21 612 Lactic Acid (mmol/L) 1.6 01/12 110 Calcium (mg/dL) 8.7 01/20 425 Phosphorus (mg/dL) 3.5 01/14 945 Magnesium (mg/dL) 2.3 01/14 945 Total Bilirubin (mg/dL) 0.6 01/20 425 AST (U/L) 19 01/20 425 ALT (U/L) 22 01/20 425 Alkaline Phosphatase (U/L) 61 01/20 425 Creatine Kinase (U/L) 81 01/12 110 CK-MB (CK-2) Rel Index (U/L) 2.2 01/12 110 CK and CKMB Interp (ng/mL) 1.8 01/12 110 Troponin I (ng/mL) 0.39 01/12 658 B-Natriuretic Peptide (pg/mL) 461 01/12 110 Total Protein (gm/dL) 5.8 01/20 425 Albumin (gm/dL) 2.0 01/20 425 Globulin (gm/dL) 3.8 01/20 425 Albumin/Globulin Ratio 0.5 01/20 425 Amylase (U/L) 28 01/12 110 Lipase (U/L) 170 01/12 110 TSH (uIU/ml) 4.30 01/12 110 Free T4 (ng/dL) 1.34 01/12 658 Thyroxine (T4) (ug/dl) 9.7 12/01 0110 Coagulation PT (SECONDS) 19.2 01/13 07 INR 1.77 01/13 730 APTT (SECONDS) 93.4 01/14 415 POC Activ Clotting Time (SEC) 394 01/12 1421 Hematology WBC (K/MM3) 11.4 01/20 425 RBC (M/mm3) 3.34 01/20 425 Hgb (g/dL) 9.5 01/20 425 Hct (%) 30.9 01/20 425 MCV (fl) 92.5 01/20 425 RDW (%) 18.0 01/20 425 Plt Count (K/mm3) 384 01/20 425 MPV (fl) 8.9 01/20 425 Gran % (%) 90.4 01/20 425 Gran # (K/mm3) 10.3 01/20 425 Total Counted (#CELLS) 100 01/19 600 Lymphocytes % (%) 5.7 01/20 425 Monocytes % (%) 3.3 01/20 425 Eosinophils % (%) 0.3 01/20 425 Basophils % (%) 0.2 01/20 425 Neutrophils (%) 83 01/19 600 Band Neutrophils (%) 6 01/19 600 Lymphocytes (Manual) (%) 2 01/19 600 Lymphocytes # (K/mm3) 0.7 01/20 425 Monocytes (Manual) (%) 9 01/19 600 Monocytes # (K/mm3) 0.4 01/20 425 Eosinophils # (K/mm3) 0.0 01/20 425 Basophils # (K/MM3) 0.0 01/20 425 Platelet Estimate SLIGHT INCREASE 01/19 600 PUBS MCHC (g/dl) 30.9 01/20 425 Immunology Antibody Screen NEGATIVE 01/14 1135 MCH (pg) 28.5 01/20 425 Miscellaneous Miscellaneous Test POSITIVE 01/14 1135 Misc Test Units BLOOD UNIT RELEASE 01/15 08 Toxicology Digoxin (ng/mL) 1.26 01/17 1010 Assessment findings Assessment Exam General appearance: intubated / sedated Cardiovascular: chest tube with no leak Patient plan Diagnoses: effusion hemothorax post-procedural PTX Plan: continue chest tube to suction at 1038
[2017-01-21] VITALS (23 sets, daily range): BP systolic 88–159; BP diastolic 32–107
[2017-01-21 05:48] LABS: ARTERIAL ABE 1.8 MMOL/L (-2.4-+2.3); ARTERIAL PO2 56.1 MMHG (80-100); ARTERIAL TCO2 26.3 MMOL/L (23-27)
[2017-01-21 05:49] LABS: OXYGEN 40; PRESSURE SUPPORT 10; VENT RATE 14
[2017-01-21 06:22] LABS: HEMOGLOBIN 9.1 g/dL (12.2-16.2); LYMPH # 0.6 K/mm3 (0.7-4.5); LYMPH % 3.8 % (10-50.0)
[2017-01-21 06:53] LABS: NEUTROPHILS 80 % (42-76)
--- NOTE | 2017-01-21 07:55 | ACUTE CARE PROGRESS NOTE (QUA) ---
Progress Notes Subjective Date 01/21/17 Time 0754 Note SHe has been running more consistent fevers up to 102. CXR yesterday suggested increasing pneumonic process. Dr. Alvarenga added Zosyn. Has not has much OP from chest tube. She is over-breathing the ventilator. BP has been occasionally low but has not required pressors. Objective Findings Laboratory Tests 01/21/17 0557: POC Glucose 311 *H 01/21/17 0535: ABG pH 7.48 H, ABG pCO2 (Temp Corrct 34.7 L, ABG pO2 (Temp Correct 56.1 L, ABG HCO3 25.3, ABG Total CO2 26.3, ABG O2 Sat (Calculated) 90.2, ABG Base Excess 1.8, Robert Test N/A, Vent Rate 14, Tidal Volume 450, POC PEEP 5, Pressure Support 10, Blood Gas Comments LEFT RADIAL 01/21/17 0520: Sodium 143, Potassium 3.6, Chloride 109 H, Carbon Dioxide 29, BUN 34 H, Creatinine 1.0, Estimated Creat Clear 53, Estimated GFR (MDRD) 53 L, Glucose 309 H, Calcium 8.4 L, Total Bilirubin 0.5, AST 18, ALT 17, Alkaline Phosphatase 65, Total Protein 5.5 L, Albumin 1.7 L, Globulin 3.8 H, Albumin/ Globulin Ratio 0.4 L, WBC 15.3 H, RBC 3.20 L, Hgb 9.1 L, Hct 30.3 L, MCV 94.9, RDW 17.6 H, Plt Count 421, MPV 8.9, Gran % 92.7 H, Gran # 14.2 H, Total Counted 100, Lymphocytes % 3.8 L, Monocytes % 3.1, Eosinophils % 0.2, Basophils % 0.1, Neutrophils 80 H, Band Neutrophils 17 H, Lymphocytes (Manual) 3 L, Lymphocytes # 0.6 L, Monocytes # 0.5, Eosinophils # 0.0, Basophils # 0.0, Platelet Estimate NORMAL, Polychromasia SL., Hypochromasia 3+, Poikilocytosis SL., Anisocytosis 1+, Macrocytosis 2+, PUBS MCHC 30.0 L, MCH 28.5 01/20/17 1939: POC Glucose 279 H 01/20/17 1724: POC Glucose 328 *H 01/20/17 1224: POC Glucose 302 *H Last VS-Temp:99.9 B/P:136/63 Pulse:89 Resp:34 SaO2:98 OXYGEN Last weight lbs:165 oz:7 K.041 Method:Floor Scales Exam General appearance: sedated on ventilator Cardiovascular: regular rate & rhythm Respiratory: scattered rhonchi, diminished BS in left base ABD: non-distended, soft Extremities: no peripheral edema Assessment/Plan Problem List 1. Respiratory failure 2. Atrial fibrillation with RVR Status: Acute 3. Hypotension Status: Resolved 4. Pneumothorax Status: Acute 5. S/P chest tube placement 6. NSTEMI (non-ST elevated myocardial infarction) 7. CHF (congestive heart failure) 8. Pulmonary edema 9. Type 2 diabetes mellitus Status: Chronic 10. HTN (hypertension) Status: Chronic 11. Hemothorax on right Status: Acute 12. Ventilator associated pneumonia Patient condition Guarded Plan: With her persistent fever and further elevation of her WBC, will advance her antibiotic regimen to cover VAP. Concur with ZOsyn but will add Levoquin and Vancomycin and stop the Rocephin. WIll make attempt to wean ventilator today. This inpt stay is expected to cross 2 MNs from start of care Yes at 1154
--- NOTE | 2017-01-21 08:55 | RADIOLOGY REPORT PS360 ---
CHEST-PORTABLE COMPARISON: Portable semiupright chest 01/20/2017 HISTORY: Intubated patient follow-up suspected pneumonia TECHNIQUE: Portable spine chest FINDINGS: The endotracheal tube remains in satisfactory position above the wilber. The NG tube again seen. The chest tube is again seen right chest with the tip at the apex. There has been some slight interval clearing of the diffuse ill-defined opacity of the right lung suggesting resolving pneumonic infiltrates and/or decrease in size of the subpulmonic pleural effusion layering under the right lung. Minimal patchy infiltrate remains in the right lower lobe. The left lung field remains clear. IMPRESSION: Mild interval improvement from yesterday's film
--- NOTE | 2017-01-21 11:10 | CONSULT NOTE ---
Pharmacokinetic Consult Date of consult: 01/21/17 Time of consult: 1108 Referring provider: DR. KOCH Reason for consult: VANCOMYCIN DOSING Allergies: Coded Allergies: No Known Allergies (04/19/16) Home Medications: Reported Medications Metformin HCL (Metformin) 1,000 MG PO BID CALCIUM CARBONATE/VITAMIN D3 (Calcium 500 + Vit D 400 Tablet) 1 TAB PO BID Vitamin E 400 IUNITS PO DAILY CHOLECALCIFEROL (VITAMIN D3) (Vitamin D3) 1,000 IUNITS PO DAILY Furosemide (Lasix 20MG) 10 MG PO DAILY WARFARIN SOD (Warfarin 5MG) 5 MG PO 3 DAYS/WEEK Multivitamin/Iron/Folic Acid (Centrum Adults Tablet) 1 EACH PO DAILY WARFARIN SOD (Warfarin 5MG) 7.5 MG PO 4 DAYS/WEEK Metronidazole 500 MG PO TID #21 TAB Levofloxacin (Levaquin 500MG) 500 MG PO DAILY #7 TAB Tramadol Hcl (Tramadol 50MG) 50 MG PO Q6HP PRN PAIN #15 Simvastatin 20 MG PO QHS Loratadine (Claritin 10MG) 10 MG PO DAILY Aspirin 81 MG PO DAILY NIFEDIPINE (Nifedipine ER) 30 MG PO QHS METOPROLOL SUCCINATE XL (Metoprolol Succinate) 100 MG PO DAILY Sertraline Hydrochloride (Sertraline 100MG) 100 MG PO DAILY #30 Height (feet): 5 Height (inches): 4.00 Medical History: CAD? No Angina: No RI: No Hypertension? Yes Hyperlipidemia? Yes CHF? No DVT? No PE? No COPD? No Asthma? No Anemia? No GERD? No Gastric ulcers? No GI Bleed? No Hernia? No Thyroid Problems? No Hypothyroidism? No CVA? No Seizures? No Diabetes? Yes Insulin Dependent: No Insulin Pump: No Home FSBS? Yes Renal Insuffiency? No UTI? No Stones? No BPH? No GB Disease: No Nephritic Syndrome? No Asplenia? No Hepatitis? No Sickle Cell Disease? No Arthritis? No Migraines? No Cataracts? No Glaucoma? No MRSA? No HIV? No TB? No Anxiety? No Depression? Yes Cancer? No More? Yes Additional hx: 1. Sphincter of Oddi Dysfunction 2. Diverticulosis 3. A FIB 4. Allergic Rhinitis Labs: Laboratory Tests 01/21/17 0557: POC Glucose 311 *H 01/21/17 0535: ABG pH 7.48 H, ABG pCO2 (Temp Corrct 34.7 L, ABG pO2 (Temp Correct 56.1 L, ABG HCO3 25.3, ABG Total CO2 26.3, ABG O2 Sat (Calculated) 90.2, ABG Base Excess 1.8, Robert Test N/A, Vent Rate 14, Tidal Volume 450, POC PEEP 5, Pressure Support 10, Blood Gas Comments LEFT RADIAL 01/21/17 0520: Sodium 143, Potassium 3.6, Chloride 109 H, Carbon Dioxide 29, BUN 34 H, Creatinine 1.0, Estimated Creat Clear 53, Estimated GFR (MDRD) 53 L, Glucose 309 H, Calcium 8.4 L, Total Bilirubin 0.5, AST 18, ALT 17, Alkaline Phosphatase 65, Total Protein 5.5 L, Albumin 1.7 L, Globulin 3.8 H, Albumin/ Globulin Ratio 0.4 L, WBC 15.3 H, RBC 3.20 L, Hgb 9.1 L, Hct 30.3 L, MCV 94.9, RDW 17.6 H, Plt Count 421, MPV 8.9, Gran % 92.7 H, Gran # 14.2 H, Total Counted 100, Lymphocytes % 3.8 L, Monocytes % 3.1, Eosinophils % 0.2, Basophils % 0.1, Neutrophils 80 H, Band Neutrophils 17 H, Lymphocytes (Manual) 3 L, Lymphocytes # 0.6 L, Monocytes # 0.5, Eosinophils # 0.0, Basophils # 0.0, Platelet Estimate NORMAL, Polychromasia SL., Hypochromasia 3+, Poikilocytosis SL., Anisocytosis 1+, Macrocytosis 2+, PUBS MCHC 30.0 L, MCH 28.5 01/20/17 1939: POC Glucose 279 H 01/20/17 1724: POC Glucose 328 *H 01/20/17 1224: POC Glucose 302 *H Plan: BASED ON PATIENT'S FACTORS, RECOMMEND STARTING WITH VANCOMYCIN 1250 MG Q24H AT THIS TIME. PHARMACY WILL FOLLOW DAILY AND ADJUST APPROPRIATE. THALIA WHEELER PHARMD at 1103
[2017-01-22] VITALS (22 sets, daily range): BP systolic 87–193; BP diastolic 33–70
[2017-01-22 05:20] LABS: HEMOGLOBIN 8.7 g/dL (12.2-16.2); LYMPH # 0.8 K/mm3 (0.7-4.5); LYMPH % 5.3 % (10-50.0)
[2017-01-22 07:14] LABS: ARTERIAL PO2 73.8 MMHG (80-100); ARTERIAL TCO2 24.9 MMOL/L (23-27)
[2017-01-22 07:15] LABS: ALLEN'S TEST NON APPLICABLE; ARTERIAL ABE 0.8 MMOL/L (-2.4-+2.3); OXYGEN 40; PRESSURE SUPPORT 10; VENT RATE 14
--- NOTE | 2017-01-22 07:15 | RADIOLOGY REPORT PS360 ---
CHEST-PORTABLE 5:00 AM HISTORY: Follow-up respiratory failure, evaluate tube placement PT INTUBATED ORDERING PHYSICIAN: Baldo Llamas MD PATIENT AGE: 81 years COMPARISON: 01/21/2017 at 5:17 AM FINDINGS: Endotracheal tube, nasogastric tube, and right-sided chest tube remaining in good position. Endotracheal tube tip is 4.6 cm above the wilber. There remains opacification of the right chest consistent with effusion with underlying atelectasis/consolidation which may be slightly improved. Left lower lobe consolidation/atelectatic changes appear slightly improved as well. No obvious pneumothorax. IMPRESSION: 1. Tubes and lines in good position. 2. Slight improvement in the opacification of the right chest and left lower lobe suggesting slight improvement in effusion with consolidation/atelectasis
--- NOTE | 2017-01-22 08:51 | ACUTE CARE PROGRESS NOTE (QUA) ---
Progress Notes Subjective Date 01/22/17 Time 0841 Note Events of the weekend discussed with Heri Mendez and German Magallon. Patient became febrile and CXR showed a pneumonia. Antibiotics were empirically changed to Vancomycin, Levaquin and Zosyn. Sputum culture this morning showed MRSA. CXR this morning showed improving pneumonia. Objective Findings Laboratory Tests 01/22/17 0611: POC Glucose 242 H 01/22/17 0600: ABG pH 7.50 H, ABG pCO2 (Temp Corrct 31.1 L, ABG pO2 (Temp Correct 73.8 L, ABG HCO3 23.9, ABG Total CO2 24.9, ABG O2 Sat (Calculated) 95, ABG Base Excess 0.8, Robert Test NON APPLICABLE, Vent Rate 14, Tidal Volume 450, POC PEEP 5, Pressure Support 10, Blood Gas Comments RIGHT RADIAL 01/22/17 0450: Sodium 141, Potassium 3.4 L, Chloride 108 H, Carbon Dioxide 26, BUN 37 H, Creatinine 0.9, Estimated Creat Clear 59, Estimated GFR (MDRD) 60, Glucose 249 H, Calcium 8.0 L 01/22/17 0446: WBC 14.4 H, RBC 3.11 L, Hgb 8.7 L, Hct 29.2 L, MCV 94.1, RDW 17.1, Plt Count 380, MPV 8.9, Gran % 89.9 H, Gran # 12.9 H, Lymphocytes % 5.3 L, Monocytes % 4.5, Eosinophils % 0.2, Basophils % 0.1, Lymphocytes # 0.8, Monocytes # 0.7, Eosinophils # 0.0, Basophils # 0.0, PUBS MCHC 29.9 L, MCH 28.1 01/21/17 1935: POC Glucose 234 H 01/21/17 1719: POC Glucose 279 H 01/21/17 1233: POC Glucose 292 H Vital Signs Date Time Temp Pulse Resp B/P Pulse O2 O2 Flow FiO2 Ox Delivery Rate 01/22 0700 100.2 91 35 141/70 100 OXYGEN 01/22 0600 40 01/22 0600 100 01/22 0600 100.0 101 16 101/53 100 OXYGEN 01/22 0555 99 OXYGEN 01/22 0500 99.8 94 35 105/49 100 OXYGEN 01/22 0400 40 12/11 0400 100 12/11 0400 100.5 89 28 131/44 100 12/11 0300 99.7 96 33 116/53 100 OXYGEN /11 0200 99.8 96 33 143/70 100 OXYGEN /11 0100 99.5 95 28 193/38 100 OXYGEN 12/11 0000 40 / 0000 100 12/10 2358 100.1 86 33 131/77 100 12/10 2300 100.0 87 27 90/38 100 OXYGEN 12/10 2200 40 12/10 2200 100 12/10 2200 100.8 90 26 105/44 100 OXYGEN 12/10 2100 99.8 93 25 94/43 100 OXYGEN 12/10 1999 40 /10 1999 99 12/10 1999 100.0 86 23 127/62 100 12/10 1859 40 12/10 1859 99.9 90 35 109/43 100 OXYGEN 12/10 1820 100.0 96 33 127/51 100 OXYGEN 12/10 1720 100.2 95 32 122/49 100 OXYGEN 12/10 1632 99.8 92 35 113/49 100 12/10 1632 99.8 92 35 113/49 100 OXYGEN 12/10 1601 101.0 89 32 101/49 100 12/10 1541 40 12/10 1541 101.0 89 32 101/49 100 OXYGEN 12/10 1410 40 12/10 1410 99.6 83 27 118/53 100 OXYGEN 12/10 1345 100.0 91 30 130/55 100 12/10 1340 100.0 93 30 139/69 100 OXYGEN 12/10 1325 40 12/10 1325 100 /10 1240 100.2 88 29 98/35 100 OXYGEN 12/10 1240 100.2 88 29 98/35 97 12/10 1134 99.9 89 34 136/63 98 OXYGEN 12/10 1036 98 OXYGEN 12/10 1010 40 12/10 1010 101.1 86 34 119/71 99 OXYGEN 12/10 1010 100 12/10 0905 100.1 84 29 88/40 95 OXYGEN I&O Past 24 Hrs-ending at 0700 12/11 0700 Intake Total 3604.4 Output Total 1243 Balance 2361.4 Last VS-Temp:100.2 B/P:141/70 Pulse:91 Resp:35 SaO2:100 OXYGEN Last weight lbs:164 oz:1 K.417 Method:Bed Scales Exam General appearance: no acute distress, intubated, awakens to voice Cardiovascular: irregularly irregular Respiratory: good air movement, diminished breath sounds (bases) Extremities: edema (trace bilateral lower) Skin: warm Assessment/Plan Problem List 1. MRSA pneumonia Status: Acute 2. Ventilator associated pneumonia Status: Acute 3. Respiratory failure Status: Acute 4. Atrial fibrillation with RVR Status: Acute 5. Pneumothorax Status: Resolved 6. Hemothorax on right Status: Acute 7. S/P chest tube placement 8. NSTEMI (non-ST elevated myocardial infarction) Status: Acute 9. CHF (congestive heart failure) Status: Acute 10. Type 2 diabetes mellitus Status: Chronic 11. HTN (hypertension) Status: Chronic 12. Hypotension Status: Resolved 13. Pulmonary edema Status: Resolved This inpt stay is expected to cross 2 MNs from start of care Yes Comments: Patient remains intubated with right sided chest tube in place and with continuous NG feedings. Will continue triple antibiotics for another day and then will decrease to Vancomycin if no other organisms are identified. at 0850
--- NOTE | 2017-01-22 09:15 | ACUTE CARE PROGRESS NOTE (QUA) ---
Progress Notes Subjective Date 01/22/17 Time 0830 Note 81 yo WF in ICU on the vent. Awakens briefly to verbal stimuli. On 3 Abx, propafol gtt, and tube feedings with good urine output. BP stable on no pressors. Telemetry shows controlled a. fib. Chest tube in place on right side with minimal output. Assessment/Plan Problem List 1. MRSA pneumonia Status: Acute 2. Ventilator associated pneumonia Status: Acute 3. Respiratory failure Status: Acute Qualifiers: Chronicity: acute Respiratory failure complication: unspecified whether with hypoxia or hypercapnia Qualified Code: J96.00 - Acute respiratory failure, unspecified whether with hypoxia or hypercapnia 4. Atrial fibrillation with RVR Status: Acute Assessment/Plan: Continues on amiodarone. Will need anticoagulation and consideration of JAMIE prior to restoring NSR 5. Pneumothorax Status: Resolved Qualifiers: Pneumothorax type: postprocedural Qualified Code: J95.811 - Postprocedural pneumothorax 6. Hemothorax on right Status: Acute 7. S/P chest tube placement 8. NSTEMI (non-ST elevated myocardial infarction) Status: Acute Assessment/Plan: On DAPT (ASA and Brilinta). 9. CHF (congestive heart failure) Status: Acute Qualifiers: Congestive heart failure type: combined Congestive heart failure chronicity: acute Qualified Code: I50.41 - Acute combined systolic (congestive) and diastolic (congestive) heart failure 10. Type 2 diabetes mellitus Status: Chronic 11. HTN (hypertension) Status: Chronic 12. Hypotension Status: Resolved 13. Pulmonary edema Status: Resolved Qualifiers: Chronicity: acute Qualified Code: J81.0 - Acute pulmonary edema 14. Anemia Assessment/Plan: Hgb between 8-9 at this time. No appreciable active bleeding noted. Urine clear. No increase in chest tube output. Last BM, 01-18-2017. Patient condition Guarded Plan: continue current care This inpt stay is expected to cross 2 MNs from start of care Yes at 0915
--- NOTE | 2017-01-22 10:47 | ACUTE CARE PROGRESS NOTE (QUA) ---
Progress note: - Chest tube with no air leak. Minimal dark pleural fluid drainage. CXR with some improvement. Will keep to suction while ventilated. If patient able to be extubated may place chest tube to water seal and possible removal 24-48 hours on water seal pending the output. at 1040
--- NOTE | 2017-01-22 17:28 | ACUTE CARE PROGRESS NOTE (QUA) ---
Progress Notes Subjective Date 01/22/17 Time 1725 Note Patient stable through the day today, BP was low after Coreg dose, UOP has trailed off some this afternoon, she will awaken to voice and look around. Objective Findings Laboratory Tests 01/22/17 1710: POC Glucose 258 H 01/22/17 1106: POC Glucose 261 H 01/22/17 0611: POC Glucose 242 H 01/22/17 0600: ABG pH 7.50 H, ABG pCO2 (Temp Corrct 31.1 L, ABG pO2 (Temp Correct 73.8 L, ABG HCO3 23.9, ABG Total CO2 24.9, ABG O2 Sat (Calculated) 95, ABG Base Excess 0.8, Robert Test NON APPLICABLE, Vent Rate 14, Tidal Volume 450, POC PEEP 5, Pressure Support 10, Blood Gas Comments RIGHT RADIAL 01/22/17 0450: Sodium 141, Potassium 3.4 L, Chloride 108 H, Carbon Dioxide 26, BUN 37 H, Creatinine 0.9, Estimated Creat Clear 59, Estimated GFR (MDRD) 60, Glucose 249 H, Calcium 8.0 L 01/22/17 0446: WBC 14.4 H, RBC 3.11 L, Hgb 8.7 L, Hct 29.2 L, MCV 94.1, RDW 17.1, Plt Count 380, MPV 8.9, Gran % 89.9 H, Gran # 12.9 H, Lymphocytes % 5.3 L, Monocytes % 4.5, Eosinophils % 0.2, Basophils % 0.1, Lymphocytes # 0.8, Monocytes # 0.7, Eosinophils # 0.0, Basophils # 0.0, PUBS MCHC 29.9 L, MCH 28.1 01/21/17 1935: POC Glucose 234 H Vital Signs Date Time Temp Pulse Resp B/P Pulse O2 O2 Flow FiO2 Ox Delivery Rate 01/22 1654 01/22 1600 01/22 1600 40 01/22 1600 99.6 86 36 100/48 100 OXYGEN 01/22 1600 99.7 79 26 96/33 100 15 01/22 1500 15 01/22 1500 99.7 79 26 96/33 100 OXYGEN 15 01/22 1420 15 01/22 1400 40 01/22 1400 99.8 81 30 116/44 100 OXYGEN 01/22 1300 15 01/22 1300 99.6 74 34 104/62 100 OXYGEN 15 / 1200 15 01/22 1200 40 / 1200 99.7 79 32 91/41 100 OXYGEN 15 / 1200 99.7 73 32 87/36 100 15 12/ 1100 15 12/ 1100 100.1 73 32 87/36 100 OXYGEN 15 / 1000 15 / 1000 40 12/ 1000 100 12/ 1000 100.0 76 32 97/34 100 OXYGEN 15 / 0900 15 / 0900 40 / 0900 85 35 158/60 100 OXYGEN 15 / 0800 100.6 85 35 158/60 100 15 / 0800 94 37 128/59 99 OXYGEN 15 01/22 0700 100.2 91 35 141/70 100 OXYGEN / 0600 40 01/22 0600 100 / 0600 100.0 101 16 101/53 100 OXYGEN / 0555 99 OXYGEN / 0500 99.8 94 35 105/49 100 OXYGEN 01/22 0400 40 01/22 0400 100 / 0400 100.5 89 28 131/44 100 / 0300 99.7 96 33 116/53 100 OXYGEN 01/22 0200 99.8 96 33 143/70 100 OXYGEN / 0100 99.5 95 28 193/38 100 OXYGEN / 0000 40 01/22 0000 100 /10 2358 100.1 86 33 131/77 100 /10 2300 100.0 87 27 90/38 100 OXYGEN /10 2200 40 / 2200 100 /10 2200 100.8 90 26 105/44 100 OXYGEN / 2100 99.8 93 25 94/43 100 OXYGEN 12/10 1999 40 01/22 2000 99 /10 1999 100.0 86 23 127/62 100 12/10 1859 40 / 1859 99.9 90 35 109/43 100 OXYGEN /10 1820 100.0 96 33 127/51 100 OXYGEN I&O Past 24 Hrs-ending at 0700 12/11 0700 Intake Total 3604.4 Output Total 1243 Balance 2361.4 Last VS-Temp:99.6 B/P:100/48 Pulse:86 Resp:36 SaO2:100 OXYGEN Last weight lbs:164 oz:1 K.417 Method:Bed Scales Assessment/Plan Problem List 1. MRSA pneumonia Status: Acute 2. Ventilator associated pneumonia Status: Acute 3. Respiratory failure Status: Acute 4. Atrial fibrillation with RVR Status: Acute 5. Pneumothorax Status: Resolved 6. Hemothorax on right Status: Acute 7. S/P chest tube placement 8. NSTEMI (non-ST elevated myocardial infarction) Status: Acute 9. CHF (congestive heart failure) Status: Acute 10. Type 2 diabetes mellitus Status: Chronic 11. HTN (hypertension) Status: Chronic 12. Hypotension Status: Resolved 13. Pulmonary edema Status: Resolved 14. Anemia This inpt stay is expected to cross 2 MNs from start of care Yes Comments: Will start some sliding scale insulin now, check labs tomorrow. Will attempt to wean vent support tomorrow. at 3663
[2017-01-23] VITALS (30 sets, daily range): BP systolic 86–150; BP diastolic 32–75
[2017-01-23 06:13] LABS: HEMOGLOBIN 8.1 g/dL (12.2-16.2); LYMPH # 0.7 K/mm3 (0.7-4.5); LYMPH % 6.4 % (10-50.0)
--- NOTE | 2017-01-23 07:49 | ACUTE CARE PROGRESS NOTE (QUA) ---
Progress Notes Subjective Date 01/23/17 Time 0738 Note 81 yo WF in ICU on the vent. Nurse relates pt continues to breath above the vent. Temp curve improved. Chest tube drainage minimal. 5 loose BM's overnight. Continues to get tube feeding. BP controlled. FiO2 requirement continues to improve. O2 sats continue to stay in the high 90's. Objective Findings Last VS-Temp:98.7 B/P:127/55 Pulse:81 Resp:28 SaO2:100 OXYGEN Last weight lbs:173 oz:8 K.698 Method:Floor Scales Exam General appearance: responsive Cardiovascular: Telemetry is a.fib with CVR. Respiratory: good air movement Extremities: still with some edema of limbs Neuro: some spontaneous movements Reviewed: medications, vital signs, lab results Assessment/Plan Problem List 1. MRSA pneumonia Status: Acute 2. Ventilator associated pneumonia Status: Acute 3. Respiratory failure Status: Acute Qualifiers: Chronicity: acute Respiratory failure complication: unspecified whether with hypoxia or hypercapnia Qualified Code: J96.00 - Acute respiratory failure, unspecified whether with hypoxia or hypercapnia 4. Atrial fibrillation with RVR Status: Acute 5. Pneumothorax Status: Resolved Qualifiers: Pneumothorax type: postprocedural Qualified Code: J95.811 - Postprocedural pneumothorax 6. Hemothorax on right Status: Acute 7. S/P chest tube placement 8. NSTEMI (non-ST elevated myocardial infarction) Status: Acute 9. CHF (congestive heart failure) Status: Acute Qualifiers: Congestive heart failure type: combined Congestive heart failure chronicity: acute Qualified Code: I50.41 - Acute combined systolic (congestive) and diastolic (congestive) heart failure 10. Type 2 diabetes mellitus Status: Chronic 11. HTN (hypertension) Status: Chronic 12. Hypotension Status: Resolved 13. Pulmonary edema Status: Resolved Qualifiers: Chronicity: acute Qualified Code: J81.0 - Acute pulmonary edema 14. Anemia Patient condition Stable Plan: continue current care This inpt stay is expected to cross 2 MNs from start of care Yes at 1615
--- NOTE | 2017-01-23 08:43 | ACUTE CARE PROGRESS NOTE (QUA) ---
Progress Notes Subjective Date 01/23/17 Time 0839 Note Nursing reports patient had 5 bowel movements overnight. She has been stable on the vent, sats have been good, still overbreathing a little. Objective Findings Laboratory Tests 01/23/17 0648: POC Glucose 196 H 01/23/17 0600: Sodium 140, Potassium 3.3 L, Chloride 108 H, Carbon Dioxide 24, BUN 40 H, Creatinine 0.9, Estimated Creat Clear 59, Estimated GFR (MDRD) 60, Glucose 202 H, Calcium 7.8 L, WBC 10.8, RBC 2.89 L, Hgb 8.1 L, Hct 26.6 L, MCV 92.3, RDW 16.7, Plt Count 327, MPV 9.2, Gran % 87.1 H, Gran # 9.4 H, Lymphocytes % 6.4 L, Monocytes % 5.6, Eosinophils % 0.8, Basophils % 0.1, Lymphocytes # 0.7, Monocytes # 0.6, Eosinophils # 0.1, Basophils # 0.0, PUBS MCHC 30.3 L, MCH 28.0 01/22/17 2024: POC Glucose 232 H 01/22/17 1710: POC Glucose 258 H 01/22/17 1106: POC Glucose 261 H Vital Signs Date Time Temp Pulse Resp B/P Pulse O2 O2 Flow FiO2 Ox Delivery Rate 01/23 0701 15 01/23 0700 98.7 81 28 127/55 100 OXYGEN 15 01/23 0600 15 01/23 0600 99.8 83 25 102/41 100 OXYGEN 15 01/23 0552 30 01/23 0544 98.7 82 28 99/41 98 15 01/23 0500 15 01/23 0500 98.7 82 27 131/59 98 OXYGEN 15 01/23 0400 15 01/23 0400 30 01/23 0400 100 01/23 0400 99.2 94 31 124/38 100 OXYGEN 15 01/23 0300 15 01/23 0300 98.9 93 21 133/64 94 OXYGEN 15 01/23 0200 15 01/23 0200 30 01/23 0200 98.9 87 31 122/49 97 OXYGEN 15 01/23 0100 15 01/23 0100 98.6 86 28 97/43 100 OXYGEN 15 01/23 0000 30 01/23 0000 99.5 86 31 93/38 100 15 01/23 0000 100 01/23 0000 99.5 82 31 93/38 100 OXYGEN 15 01/22 2300 15 01/22 2300 99.2 84 27 112/56 98 OXYGEN 15 01/22 2200 15 01/22 2200 15 01/22 2200 99.3 79 26 102/37 100 OXYGEN 15 01/22 2100 15 01/22 2100 99.6 83 23 117/37 100 OXYGEN 15 01/23 2000 15 01/23 2000 30 01/23 2000 100.3 85 23 103/36 97 15 01/23 2000 100.3 85 23 104/36 97 OXYGEN 15 01/23 2000 97 / 1900 15 01/22 1900 99.9 80 30 110/35 97 OXYGEN 15 01/22 1849 15 01/22 1800 15 01/22 1800 40 01/22 1800 100.0 86 28 96/35 100 OXYGEN 15 01/22 1700 100.1 97 30 118/51 100 OXYGEN 15 01/22 1654 15 01/22 1600 15 01/22 1600 40 01/22 1600 99.6 86 36 100/48 100 OXYGEN 15 01/22 1600 99.7 79 26 96/33 100 15 01/22 1500 15 01/22 1500 99.7 79 26 96/33 100 OXYGEN 15 01/22 1420 15 01/22 1400 40 01/22 1400 99.8 81 30 116/44 100 OXYGEN 15 01/22 1300 15 01/22 1300 99.6 74 34 104/62 100 OXYGEN 15 01/22 1200 15 01/22 1200 40 01/22 1200 99.7 79 32 91/41 100 OXYGEN 15 01/22 1200 99.7 73 32 87/36 100 15 01/22 1100 15 01/22 1100 100.1 73 32 87/36 100 OXYGEN 15 01/22 1000 15 01/22 1000 40 01/22 1000 100 01/22 1000 100.0 76 32 97/34 100 OXYGEN 15 01/22 0900 15 01/22 0900 40 01/22 0900 85 35 158/60 100 OXYGEN 15 I&O Past 24 Hrs-ending at 0700 01/23 0700 Intake Total 3983.7 Output Total 992 Balance 2991.7 Last VS-Temp:98.7 B/P:127/55 Pulse:81 Resp:28 SaO2:100 OXYGEN Last weight lbs:173 oz:8 K.698 Method:Floor Scales Exam General appearance: responsive (intubated) Cardiovascular: irregularly irregular Respiratory: good air movement (anterior), diminished breath sounds (bases) ABD: normal bowel sounds, soft, no tenderness Extremities: edema (all extremities) Assessment/Plan Problem List 1. MRSA pneumonia Status: Acute 2. Ventilator associated pneumonia Status: Acute 3. Respiratory failure Status: Acute 4. Atrial fibrillation with RVR Status: Acute 5. Pneumothorax Status: Resolved 6. Hemothorax on right Status: Acute 7. S/P chest tube placement 8. NSTEMI (non-ST elevated myocardial infarction) Status: Acute 9. CHF (congestive heart failure) Status: Acute 10. Type 2 diabetes mellitus Status: Chronic 11. HTN (hypertension) Status: Chronic 12. Hypotension Status: Resolved 13. Pulmonary edema Status: Resolved 14. Anemia This inpt stay is expected to cross 2 MNs from start of care Yes Comments: Plan to wean vent to CPAP today, decrease Coreg dose, will give one dose of Lorazepam instead of titrating up on Propofol, continue tube feeds and decrease IVF rate. at 0843
--- NOTE | 2017-01-23 09:24 | RADIOLOGY REPORT PS360 ---
CHEST-PORTABLE 8:23 AM HISTORY: Respiratory failure, endotracheal tube evaluation PATIENT INTUBATED ORDERING PHYSICIAN: Baldo Llamas MD PATIENT AGE: 81 years COMPARISON: 01/22/2017 FINDINGS: Endotracheal tube remains in good position 4 cm above the wilber.. Nasogastric tube tip is not visible but is below the GE junction. Right-sided chest tube remains in place. No evidence of pneumothorax. There remains opacification of the right chest consistent with underlying effusion with consolidation and/or volume loss. This appears somewhat worse compared to the previous exam. Left lower lobe consolidation also appears somewhat worse. IMPRESSION: 1. No change tubes and lines. No evidence of pneumothorax. 2. Persistent opacification of the right chest consistent with effusion with consolidation and/or volume loss slightly worse. 3. Slight worsening left lower lobe consolidation
[2017-01-23 09:25] LABS: NEUTROPHILS 92 % (42-76)
[2017-01-23 11:05] LABS: ALLEN'S TEST NON APPLICABLE; ARTERIAL ABE -1.7 MMOL/L (-2.4-+2.3); ARTERIAL PO2 64.6 MMHG (80-100); ARTERIAL TCO2 22.2 MMOL/L (23-27); PRESSURE SUPPORT 10
[2017-01-23 12:20] LABS: ABO BLOOD TYPE A; ANTIHUMAN GLOB CROSSMATCH COMPAT; RH BLOOD TYPE POSITIVE
[2017-01-23 12:21] LABS: ANTIHUMAN GLOB CROSSMATCH COMPAT
--- NOTE | 2017-01-23 13:25 | ACUTE CARE PROGRESS NOTE (QUA) ---
Progress note: - Chest tube with about 50cc dark pleural fluid overnight. No air leak. Will place to water seal. Possible removal tomorrow. at 1324
--- NOTE | 2017-01-23 14:57 | ACUTE CARE PROGRESS NOTE (QUA) ---
Progress Notes Subjective Date 01/23/17 Time 1456 Assessment/Plan Problem List 1. MRSA pneumonia Status: Acute 2. Ventilator associated pneumonia Status: Acute 3. Respiratory failure Status: Acute 4. Atrial fibrillation with RVR Status: Acute 5. Pneumothorax Status: Resolved 6. Hemothorax on right Status: Acute 7. S/P chest tube placement 8. NSTEMI (non-ST elevated myocardial infarction) Status: Acute 9. CHF (congestive heart failure) Status: Acute 10. Type 2 diabetes mellitus Status: Chronic 11. HTN (hypertension) Status: Chronic 12. Hypotension Status: Resolved 13. Pulmonary edema Status: Resolved 14. Anemia This inpt stay is expected to cross 2 MNs from start of care Yes Antibiotic Stewardship (2) Current Culture Results Microbiology 01/19 1800 SPUTUM: Sputum Culture - COMP STAPHYLOCOCCUS AUREUS 01/19 1800 SPUTUM: Gram Stain - COMP Infxn that will respond? Yes Right drug,dose,and route? Yes More targeted antbx? No at 2582
[2017-01-24] VITALS (25 sets, daily range): BP systolic 92–172; BP diastolic 27–78
[2017-01-24 06:09] LABS: ALLEN'S TEST NON APPLICABLE; ARTERIAL ABE -1.1 MMOL/L (-2.4-+2.3); ARTERIAL TCO2 23.5 MMOL/L (23-27); OXYGEN 30; PRESSURE SUPPORT 10; VENT RATE 14
[2017-01-24 06:12] LABS: LYMPH # 0.8 K/mm3 (0.7-4.5); LYMPH % 6.1 % (10-50.0)
[2017-01-24 06:14] LABS: HEMOGLOBIN 9.4 g/dL (12.2-16.2)
--- NOTE | 2017-01-24 07:56 | RADIOLOGY REPORT PS360 ---
CHEST-PORTABLE HISTORY: Respiratory failure PT INTUBATED ORDERING PHYSICIAN: Baldo Llamas MD PATIENT AGE: 81 years COMPARISON: 01/23/2017 FINDINGS: Endotracheal tube, nasogastric tube, and right-sided chest tube remain in place. Endotracheal tube tip is 5 cm above the wilber in good position. There remains opacification of the right chest consistent with effusion with volume loss/consolidation unchanged. No obvious pneumothorax. Left lower lobe consolidation persist unchanged. IMPRESSION: 1. Overall no change in tubes and lines 2. No change right-sided consolidation with effusion and left lower lobe consolidation
--- NOTE | 2017-01-24 08:09 | ACUTE CARE PROGRESS NOTE (QUA) ---
See Addendum Progress Notes Subjective Date 01/24/17 Time 0756 Note Patient is wide awake and answers all questions with nodding of her head; denies pain ; + SOB Remains on Vent with SMIV 14 TV 450 and 35%; assisting at 36-40/min; on continuous TF with continous stooling throughout the night. Per nursing; small amout of secretions SX from ET tube; BP varies; skin breakdown from continous stool Objective Findings Laboratory Tests 01/24/17 0609: POC Glucose 209 H 01/24/17 0555: ABG pH 7.47 H, ABG pCO2 (Temp Corrct 31.8 L, ABG pO2 (Temp Correct 77.0 L, ABG HCO3 22.6, ABG Total CO2 23.5, ABG O2 Sat (Calculated) 95.6, ABG Base Excess -1.1, Robert Test NON APPLICABLE, Vent Rate 14, Tidal Volume 350, POC PEEP 5, Pressure Support 10, Blood Gas Comments RIGHT BRACHIAL 01/24/17 0552: Sodium 139, Potassium 3.2 L, Chloride 107, Carbon Dioxide 26, BUN 34 H, Creatinine 0.9, Estimated Creat Clear 62, Estimated GFR (MDRD) 60, Glucose 196 H, Calcium 8.2 L, WBC 13.0 H, RBC 3.34 L, Hgb 9.4 L, Hct 30.6 L, MCV 91.5, RDW 16.1, Plt Count 343, MPV 8.6, Gran % 87.5 H, Gran # 11.9 H, Lymphocytes % 6.1 L, Monocytes % 6.0, Eosinophils % 0.3, Basophils % 0.1, Lymphocytes # 0.8, Monocytes # 0.8, Eosinophils # 0.0, Basophils # 0.0, PUBS MCHC 30.7 L, MCH 28.1 , Vancomycin Trough 10.2 01/23/17 2050: POC Glucose 225 H 01/23/17 1721: POC Glucose 189 H 01/23/17 1300[facility] 01/23/17 1205: POC Glucose 246 H 01/23/17 1055: ABG pH 7.51 H, ABG pCO2 (Temp Corrct 27.2 L, ABG pO2 (Temp Correct 64.6 L, ABG HCO3 21.3 L, ABG Total CO2 22.2 L, ABG O2 Sat (Calculated) 94, ABG Base Excess -1.7, Robert Test NON APPLICABLE, Tidal Volume 388, POC PEEP 5, Pressure Support 10, Blood Gas Comments RIGHT BRACHIAL 01/23/17 1038: Antibody Screen NEGATIVE, Miscellaneous Test POSITIVE Vital Signs Date Time Temp Pulse Resp B/P Pulse O2 O2 Flow FiO2 Ox Delivery Rate 01/24 0700 98.9 91 33 115/78 97 OXYGEN 15 01/24 0600 15 01/24 0600 30 01/24 0600 99.7 88 32 110/45 100 OXYGEN 15 01/24 0600 100 / 0550 100 OXYGEN 01/24 0500 100.4 89 24 130/42 97 OXYGEN 15 01/24 0400 15 01/24 0400 30 01/24 0400 100.6 84 33 103/30 99 OXYGEN 15 01/24 0400 99 / 0400 100.6 84 33 103/30 99 / 0300 100.0 82 26 109/27 100 OXYGEN 15 01/24 0200 15 01/24 0200 30 01/24 0200 100.8 93 30 172/78 94 OXYGEN 15 01/24 0200 94 / 0100 100.5 87 30 141/49 100 OXYGEN 15 01/24 0000 15 01/24 0000 30 01/24 0000 99.6 86 34 92/30 98 OXYGEN 15 01/24 0000 98 / 0000 99.6 86 34 92/30 98 01/23 2300 100.3 89 37 102/40 95 OXYGEN 15 01/23 2200 15 01/23 2200 30 01/23 2200 100 01/23 2200 100.5 92 32 117/75 92 OXYGEN 15 01/23 2100 98.4 91 33 150/72 100 OXYGEN 15 01/24 2000 15 01/24 2000 30 01/24 2000 100.9 93 35 147/64 100 OXYGEN 15 01/24 2000 100 01/24 2000 100.9 91 34 147/64 91 01/23 1800 15 01/23 1800 30 01/23 1800 99 01/23 1800 100.1 89 37 122/59 97 OXYGEN 01/23 1700 15 01/23 1700 100.1 85 38 97/41 94 OXYGEN 15 01/23 1620 100.1 86 36 132/60 01/23 1600 15 01/23 1600 30 12/12 1600 97 01/23 1520 100.9 87 34 109/40 01/23 1510 99.9 85 37 124/40 01/23 1500 15 01/23 1410 99.4 87 32 119/46 01/23 1400 15 01/23 1400 30 01/23 1400 97 01/23 1355 98.9 76 33 113/48 01/23 1340 98.8 77 30 89/39 01/23 1330 15 01/23 1325 99.4 87 28 91/32 01/23 1320 99.4 91 35 105/42 01/23 1315 99.8 83 28 97/44 01/23 1310 99.4 84 30 97/42 01/23 1200 15 01/23 1200 30 01/23 1200 99.4 86 37 114/58 100 OXYGEN 01/23 1200 99.4 84 37 114/58 97 01/23 1200 97 01/23 1152 15 01/23 1100 99.9 77 27 105/35 100 OXYGEN / 1000 15 01/23 1000 30 01/23 1000 99.4 85 37 86/35 100 OXYGEN 01/23 1000 100 01/23 0900 99.8 91 32 116/54 96 OXYGEN / 0856 30 01/23 0830 30 / 0830 99.8 85 33 95/33 100 OXYGEN / 0830 99.8 85 30 95/33 100 15 01/23 0830 100 / 0800 15 Current Medications Insulin Human [rDNA origin] 0 .STK-MED ONE SC (DC) Acetaminophen 0 .STK-MED ONE PO (DC) Piperacillin Sod/Tazobactam Sod 4.5 GM Q6 IV (CAN) Sodium Chloride 50 ML Furosemide 0 .STK-MED ONE .ROUTE (DC) Furosemide 40 MG ONCE ONE IV (DC) Insulin Human [rDNA origin] 0 .STK-MED ONE SC (DC) Sodium Chloride 250 ML .STK-MED ONE IV (DC) Sodium Chloride 250 ML .Q10H IV (DC) Carvedilol 3.125 MG BID PO Lorazepam 0.5 MG ONCE ONE IV (DC) Pantoprazole Sodium 40 MG DAILY IV Sodium Chloride 1,000 ML .Q20H IV Levofloxacin/Dextrose 150 ML DAILY IV (DC) Vancomycin HCl 1,250 MG 0700 IV Sodium Chloride 250 ML Piperacillin Sod/Tazobactam Sod 4.5 GM Q6 IV (DC) Sodium Chloride 100 ML Norepinephrine Bitartrate 8 MG .Q25H IV (DC) Dextrose/Water 250 ML Amiodarone HCl 200 MG BID PO Aspirin 81 MG DAILY PO Digoxin 0.125 MG DAILY IV Spironolactone 25 MG DAILY PO Carvedilol 12.5 MG BID PO (DC) Ticagrelor 90 MG BID PO Albuterol/Ipratropium 3 ML Q6H6 INH Diagnostic Test (Pha) 1 EACH W/MEALS&HS FS Insulin Human [rDNA origin] SEE ADMIN CRITERIA FOR LOW INTENSITY SS W/MEALS&HS SC Nitroglycerin 0.5 IN Q6 TP Morphine Sulfate 1 MG Q2HP PRN IV Morphine Sulfate 2 MG Q2HP PRN IV Nitroglycerin 0.4 MG [id number] PRN SL Sodium Chloride 10 ML PRN PRN IV Temazepam 15 MG QHSP PRN PO Acetaminophen 650 MG Q4HP PRN PO Ondansetron HCl 4 MG Q6HP PRN IV Sodium Chloride 10 ML PRN PRN IV Sodium Chloride 25 ML PRN PRN IV Propofol 100 ML .Q25H IV / 1500 12/ 2300 / 0700 Intake Total 1244.4 750.3 Output Total 306 715 205 Balance 938.4 35.3 -205 Intake, IV 851.4 568.3 Intake, Oral 0 0 Intake, Tube 243 102 Feeding Intake, Tube 150 80 Irrigant Output, 0 Emesis Output, 0 Estimated Blood Loss Output, Stool Output, Urine 306 715 205 Patient 174 lb Weight Last VS-Temp:98.9 B/P:115/78 Pulse:91 Resp:33 SaO2:97 OXYGEN Last weight lbs:174 oz:4 K.038 Method:Bed Scales Exam General appearance: alert Cardiovascular: at fib with controlled vent rate Respiratory: crackles on the right; CT to straight drain ABD: non-distended, soft, no tenderness, NGT in place with continous TF TWOCAL HN Assessment/Plan Problem List 1. MRSA pneumonia Status: Acute 2. Ventilator associated pneumonia Status: Acute 3. Respiratory failure Status: Acute 4. Atrial fibrillation with RVR Status: Acute 5. Pneumothorax Status: Resolved 6. Hemothorax on right Status: Acute 7. S/P chest tube placement 8. NSTEMI (non-ST elevated myocardial infarction) Status: Acute 9. CHF (congestive heart failure) Status: Acute 10. Type 2 diabetes mellitus Status: Chronic 11. HTN (hypertension) Status: Chronic 12. Hypotension Status: Resolved 13. Pulmonary edema Status: Resolved 14. Anemia 15. Diarrhea 16. Nutritional deficiency Patient condition Guarded Plan: dietary consult due to diarrhea with TF; will try rectal tube; will start CPAP again This inpt stay is expected to cross 2 MNs from start of care Yes (Trice Shen APRN) Assessment/Plan Problem List 1. MRSA pneumonia Status: Acute 2. Ventilator associated pneumonia Status: Acute 3. Respiratory failure Status: Acute 4. Atrial fibrillation with RVR Status: Acute 5. Pneumothorax Status: Resolved 6. Hemothorax on right Status: Acute 7. S/P chest tube placement 8. NSTEMI (non-ST elevated myocardial infarction) Status: Acute 9. CHF (congestive heart failure) Status: Acute 10. Type 2 diabetes mellitus Status: Chronic 11. HTN (hypertension) Status: Chronic 12. Hypotension Status: Resolved 13. Pulmonary edema Status: Resolved 14. Anemia 15. Diarrhea 16. Nutritional deficiency Comments: Saw patient this morning, she continues to be tachypneic, will discuss chest tube with Dr. Tang, disagree with rectal tube, replace potassium. (Baldo Llamas MD) at 0808 at 0836
--- NOTE | 2017-01-24 09:41 | ACUTE CARE PROGRESS NOTE (QUA) ---
Progress Notes Subjective Date 01/24/17 Time 0933 Note 81 yo WF in ICU. Continues on vent. Off sedation. Awake and responding but anxious. Wants off the vent. CXR without significant changes. Chest tube to water seal. Transient hypotension with combo of coreg and amiodarone. Objective Findings Last VS-Temp:98.9 B/P:115/78 Pulse:91 Resp:33 SaO2:97 OXYGEN Last weight lbs:174 oz:4 K.038 Method:Bed Scales Exam General appearance: awake Cardiovascular: irregularly irregular Respiratory: improving breath sounds. Extremities: moves all, edema Neuro: responds to questions with appropriate head nodding. Reviewed: medications, vital signs, lab results Assessment/Plan Problem List 1. MRSA pneumonia Status: Acute Assessment/Plan: On triple antibiotics. 2. Ventilator associated pneumonia Status: Acute 3. Respiratory failure Status: Acute Assessment/Plan: Unable to wean off vent at this time but pulmonary status improving. Qualifiers: Chronicity: acute Respiratory failure complication: unspecified whether with hypoxia or hypercapnia Qualified Code: J96.00 - Acute respiratory failure, unspecified whether with hypoxia or hypercapnia 4. Atrial fibrillation with RVR Status: Acute Assessment/Plan: Controlled rate. On amiodarone. No a/c due to recent hemothorax with chest tube still in place. 5. Pneumothorax Status: Resolved Qualifiers: Pneumothorax type: postprocedural Qualified Code: J95.811 - Postprocedural pneumothorax 6. Hemothorax on right Status: Acute 7. S/P chest tube placement 8. NSTEMI (non-ST elevated myocardial infarction) Status: Acute Assessment/Plan: s/p SALUD, on DAPT. 9. CHF (congestive heart failure) Status: Acute Qualifiers: Congestive heart failure type: combined Congestive heart failure chronicity: acute Qualified Code: I50.41 - Acute combined systolic (congestive) and diastolic (congestive) heart failure 10. Type 2 diabetes mellitus Status: Chronic 11. HTN (hypertension) Status: Chronic 12. Hypotension Status: Resolved 13. Pulmonary edema Status: Resolved Qualifiers: Chronicity: acute Qualified Code: J81.0 - Acute pulmonary edema 14. Anemia 15. Diarrhea 16. Nutritional deficiency Assessment/Plan: Continues to get tube feedings but with diarrhea. Dietary consulted. Patient condition Guarded Plan: Will reduce amiodarone to 200 mg daily. Switch coreg to bisoprolol 10 mg daily for better rate control and less BP effect. CT of chest to follow up on pneumonia and hemothorax prior to chest tube removal. This inpt stay is expected to cross 2 MNs from start of care Yes at 0940
--- NOTE | 2017-01-24 11:25 | CONSULT NOTE ---
Pharmacokinetic Consult Date of consult: 01/24/17 Time of consult: 1124 Referring provider: DR. KOCH Reason for consult: VANCOMYCIN TROUGH LEVEL Allergies: Coded Allergies: No Known Allergies (04/19/16) Home Medications: Reported Medications Metformin HCL (Metformin) 1,000 MG PO BID CALCIUM CARBONATE/VITAMIN D3 (Calcium 500 + Vit D 400 Tablet) 1 TAB PO BID Vitamin E 400 IUNITS PO DAILY CHOLECALCIFEROL (VITAMIN D3) (Vitamin D3) 1,000 IUNITS PO DAILY Furosemide (Lasix 20MG) 10 MG PO DAILY WARFARIN SOD (Warfarin 5MG) 5 MG PO 3 DAYS/WEEK Multivitamin/Iron/Folic Acid (Centrum Adults Tablet) 1 EACH PO DAILY WARFARIN SOD (Warfarin 5MG) 7.5 MG PO 4 DAYS/WEEK Metronidazole 500 MG PO TID #21 TAB Levofloxacin (Levaquin 500MG) 500 MG PO DAILY #7 TAB Tramadol Hcl (Tramadol 50MG) 50 MG PO Q6HP PRN PAIN #15 Simvastatin 20 MG PO QHS Loratadine (Claritin 10MG) 10 MG PO DAILY Aspirin 81 MG PO DAILY NIFEDIPINE (Nifedipine ER) 30 MG PO QHS METOPROLOL SUCCINATE XL (Metoprolol Succinate) 100 MG PO DAILY Sertraline Hydrochloride (Sertraline 100MG) 100 MG PO DAILY #30 Height (feet): 5 Height (inches): 4.00 Medical History: CAD? No Angina: No OK: No Hypertension? Yes Hyperlipidemia? Yes CHF? No DVT? No PE? No COPD? No Asthma? No Anemia? No GERD? No Gastric ulcers? No GI Bleed? No Hernia? No Thyroid Problems? No Hypothyroidism? No CVA? No Seizures? No Diabetes? Yes Insulin Dependent: No Insulin Pump: No Home FSBS? Yes Renal Insuffiency? No UTI? No Stones? No BPH? No GB Disease: No Nephritic Syndrome? No Asplenia? No Hepatitis? No Sickle Cell Disease? No Arthritis? No Migraines? No Cataracts? No Glaucoma? No MRSA? No HIV? No TB? No Anxiety? No Depression? Yes Cancer? No More? Yes Additional hx: 1. Sphincter of Oddi Dysfunction 2. Diverticulosis 3. A FIB 4. Allergic Rhinitis Labs: Laboratory Tests 01/24/17 0609: POC Glucose 209 H 12/13/17 0555: ABG pH 7.47 H, ABG pCO2 (Temp Corrct 31.8 L, ABG pO2 (Temp Correct 77.0 L, ABG HCO3 22.6, ABG Total CO2 23.5, ABG O2 Sat (Calculated) 95.6, ABG Base Excess -1.1, Robert Test NON APPLICABLE, Vent Rate 14, Tidal Volume 350, POC PEEP 5, Pressure Support 10, Blood Gas Comments RIGHT BRACHIAL 01/24/17 0552: Sodium 139, Potassium 3.2 L, Chloride 107, Carbon Dioxide 26, BUN 34 H, Creatinine 0.9, Estimated Creat Clear 62, Estimated GFR (MDRD) 60, Glucose 196 H, Calcium 8.2 L, WBC 13.0 H, RBC 3.34 L, Hgb 9.4 L, Hct 30.6 L, MCV 91.5, RDW 16.1, Plt Count 343, MPV 8.6, Gran % 87.5 H, Gran # 11.9 H, Lymphocytes % 6.1 L, Monocytes % 6.0, Eosinophils % 0.3, Basophils % 0.1, Lymphocytes # 0.8, Monocytes # 0.8, Eosinophils # 0.0, Basophils # 0.0, PUBS MCHC 30.7 L, MCH 28.1 , Vancomycin Trough 10.2 01/23/17 2050: POC Glucose 225 H 01/23/17 1721: POC Glucose 189 H 01/23/17 1300: Misc Test Units BLOOD UNIT RELEASE 01/23/17 1205: POC Glucose 246 H Problem List: 1. MRSA pneumonia Acute Plan: BASED ON PATIENT FACTORS AND VANCOMYCIN TROUGH LEVEL, RECOMMEND INCREASING DOSE TO VANCOMYCIN 1500 MG IV Q24H. PHARMACY WILL CONTINUE TO MONITOR DAILY AND ADJUST APPROPRIATE. at 1121
--- NOTE | 2017-01-24 14:43 | RADIOLOGY REPORT PS360 ---
CT CHEST W/O CONTRAST HISTORY: Respiratory failure, follow-up pneumonia and effusion FU PNEUMONIA, PLEURAL EFFUSION ORDERING PHYSICIAN: Baldo Llamas MD PATIENT AGE: 81 years TECHNIQUE: Helical acquisition obtained without contrast.. Axial, sagittal, and coronal reformatted images are generated and reviewed. COMPARISON: 01/14/2017 FINDINGS: Endotracheal tube remains in place in good position 4 cm above the wilber. Right chest tube is present along the posterior hemithorax with the tip near the apex medially. There is no evidence of pneumothorax. There is persistent heterogeneous right-sided pleural effusion moderate-sized in nature. The heterogeneous nature suggest a hemothorax or other underlying debris. There remains moderate consolidation of the right lower lobe with air bronchograms. There is new consolidation involving the right middle lobe laterally and peripherally. There remains a small to medium-sized left pleural effusion with left lower lobe consolidation and air bronchograms slightly worse. New area of consolidation is present in the left upper lobe posteriorly along the major fissure. Coronary artery calcification with mild cardiomegaly without obvious pericardial effusion. Nasogastric tube remains in place with the tip in the body of the stomach. IMPRESSION: 1. Persistent bilateral pleural effusions with bilateral lower lobe consolidation. The effusion on the right is somewhat heterogeneous density consistent with debris or hemorrhage. Effusions and consolidation are not significant changed in the lower lobes. 2. New areas of consolidation in the right upper lobe, right middle lobe, and left upper lobe consistent with areas of pneumonia. 3. Right-sided chest tube in good position. Nasogastric tube and endotracheal tube are also present.
--- NOTE | 2017-01-24 15:02 | ACUTE CARE PROGRESS NOTE (QUA) ---
Progress note: - GENERAL SURGERY NOTE Evaluation of chest tube reveals minimal total output over the past 24 hours with no air leak on water seal. Patient underwent CT of chest as ordered by cardiology. This reveals findings consistent with persistent right hemothorax despite very good chest tube placement. Successul extubation with these findings is likely improbable. May consider transfer to tertiary facility for thoracic surgery consideration of VATS for hemothorax evacuation. at 1501
[2017-01-24 19:06] LABS: AEROMONAS NOT DETECTED (NOT DETECTE); ASTROVIRUS NOT DETECTED (NOT DETECTE); CYCLOSPORA CAYETANENSIS NOT DETECTED (NOT DETECTE); E COLI O157 NOT DETECTED (NOT DETECTE); ENTEROAGGREGATIVE E COLI NOT DETECTED (NOT DETECTE); ENTEROPATHOGENIC E COLI NOT DETECTED (NOT DETECTE); ENTEROTOXIGENIC E COLI NOT DETECTED (NOT DETECTE); NOROVIRUS NOT DETECTED (NOT DETECTE); SAPOVIRUS NOT DETECTED (NOT DETECTE); SHIGA-LIKE TOXIN PROD. E COLI NOT DETECTED (NOT DETECTE); SHIGELLA/ENTEROINVASIVE E COLI NOT DETECTED (NOT DETECTE); VIBRIO CHOLERAE NOT DETECTED (NOT DETECTE)
[2017-01-25] VITALS (17 sets, daily range): BP systolic 95–150; BP diastolic 30–66
[2017-01-25 05:46] LABS: LYMPH # 0.7 K/mm3 (0.7-4.5); LYMPH % 6.9 % (10-50.0)
[2017-01-25 05:56] LABS: HEMOGLOBIN 8.4 g/dL (12.2-16.2)
--- NOTE | 2017-01-25 06:13 | RADIOLOGY REPORT PS360 ---
CHEST-PORTABLE HISTORY: Respiratory failure PT INTUBATED ORDERING PHYSICIAN: Baldo Llamas MD PATIENT AGE: 81 years COMPARISON: 01/24/2017 FINDINGS: Endotracheal tube remains in good position with the tip 4 cm by the wilber. Nasogastric tube tip is in region the body the stomach. Right-sided chest tube remains in place. No obvious pneumothorax There is an additional tubular density traversing the right hemithorax and may be the external portion of the nasogastric tube. There is increasing density of the right chest medially suggesting increased consolidation/volume loss of the right lung. Right-sided effusion unchanged. Left lower lobe consolidation/volume loss with effusion unchanged . IMPRESSION: 1. Tubes and lines remain in good position. 2. Increasing density at the right lung medially suggesting increasing consolidation and/or volume loss with effusion. 3. No change left lower lobe volume loss with effusion
[2017-01-25 06:50] LABS: ARTERIAL ABE -0.6 MMOL/L (-2.4-+2.3); ARTERIAL TCO2 23.4 MMOL/L (23-27)
[2017-01-25 06:51] LABS: ALLEN'S TEST PATIENT UNABLE; OXYGEN 30; PRESSURE SUPPORT 10; VENT RATE 14
[2017-01-25 07:44] LABS: NEUTROPHILS 86 % (42-76)
--- NOTE | 2017-01-25 08:49 | ACUTE CARE PROGRESS NOTE (QUA) ---
Progress Notes Subjective Date 01/25/17 Time 0846 Note No new problems reported overnight, still waiting for an ICU bed at . Objective Findings Laboratory Tests 01/25/17 0605: ABG pH 7.51 H, ABG pCO2 (Temp Corrct 29.1 L, ABG pO2 (Temp Correct 67.0 L, ABG HCO3 22.5, ABG Total CO2 23.4, ABG O2 Sat (Calculated) 94.0, ABG Base Excess -0.6, Robert Test PATIENT UNABLE, Vent Rate 14, Tidal Volume 450, POC PEEP 5, Pressure Support 10, Blood Gas Comments LEFT RADIAL 01/25/17 0601: POC Glucose 226 H 01/25/17 0515: Sodium 139, Potassium 3.6, Chloride 106, Carbon Dioxide 25, BUN 34 H, Creatinine 0.9, Estimated Creat Clear 63, Estimated GFR (MDRD) 60, Glucose 219 H, Calcium 8.3 L, WBC 9.5, RBC 2.97 L, Hgb 8.4 L, Hct 27.3 L, MCV 92.0, RDW 16.4, Plt Count 323, MPV 8.6, Gran % 85.4 H, Gran # 8.2 H, Total Counted 100, Lymphocytes % 6.9 L, Monocytes % 6.3, Eosinophils % 1.2, Basophils % 0.1, Neutrophils 86 H, Band Neutrophils 4, Lymphocytes (Manual) 5 L, Lymphocytes # 0.7, Monocytes (Manual) 4, Monocytes # 0.6, Eosinophils # 0.1, Eosinophils # ( Manual) 1, Basophils # 0.0, Platelet Estimate NORMAL, Hypochromasia 2+, Anisocytosis 1+, PUBS MCHC 30.5 L, MCH 28.1 01/24/172030: POC Glucose 150 H 01/24/17 1850: Stl Aeromonas (PCR) NOT DETECTED, Stl Cyclospora species NOT DETECTED, Stool Rotavirus (PCR) NOT DETECTED, Stool Astrovirus (PCR) NOT DETECTED, Stool Campylobacter PCR NOT DETECTED, Stool Cryptosporidium PCR NOT DETECTED, Stl E. histolytica PCR NOT DETECTED, Stool Giardia Lamblia PCR NOT DETECTED, Stl P. shigelloides PCR NOT DETECTED, Stool Sapovirus (PCR) NOT DETECTED, Stool Vibrio (PCR) NOT DETECTED, Stl Vibrio cholerae PCR NOT DETECTED, Stl Norovirus GI/GII PCR NOT DETECTED, Adenovirus (PCR) NOT DETECTED, C. difficile Tox (PCR) NOT DETECTED, E. coli (PCR) NOT DETECTED, Salmonella (PCR) NOT DETECTED, Yersinia ( PCR) NOT DETECTED 01/24/17 1720: POC Glucose 123 H 01/24/17 1157: POC Glucose 216 H Vital Signs Date Time Temp Pulse Resp B/P Pulse O2 O2 Flow FiO2 Ox Delivery Rate 01/25 0658 100.1 71 29 150/57 100 OXYGEN /14 0620 100 OXYGEN /14 0600 30 01/25 0600 100 /14 0600 101.1 75 28 120/43 100 OXYGEN /14 0500 99.9 77 21 118/46 100 OXYGEN /14 0400 30 01/25 0400 100 /14 0400 99.6 73 31 100/44 100 /14 0300 100.2 69 34 113/44 100 OXYGEN /14 0200 30 01/25 0200 100 / 0200 99.9 71 31 110/42 100 OXYGEN /14 0100 98.8 68 26 102/44 100 OXYGEN /14 0000 30 01/25 0000 100 /14 0000 98.9 75 18 104/48 100 /13 2300 99.5 69 26 111/57 99 OXYGEN /13 2200 30 / 2200 99 /13 2200 99.7 67 24 116/53 100 OXYGEN /13 2100 99.4 69 21 102/44 96 OXYGEN 12/13 2015 30 01/24 2015 101.4 73 29 115/55 97 / 2015 97 / 1900 101.4 81 38 128/68 33 OXYGEN 12/13 1800 30 12/ 1800 100.8 76 27 112/41 100 OXYGEN 12/13 1800 97 /13 1700 100.9 68 38 96/35 100 OXYGEN 15 12/13 1600 30 12/13 1600 99 /13 1559 100.6 74 26 97/32 99 OXYGEN 15 12/13 1536 100.7 72 23 110/43 100 12/13 1500 100.7 72 23 110/43 100 OXYGEN 15 12/13 1400 30 12/13 1400 100.0 67 25 103/47 99 OXYGEN 15 12/13 1400 99 /13 1300 70 26 101/36 100 OXYGEN 15 12/13 1200 30 12/13 1200 100.2 76 24 113/45 100 12/13 1200 100.2 76 24 113/45 100 OXYGEN 15 / 1200 99 / 1100 15 / 1100 68 22 111/51 100 OXYGEN 15 / 1000 30 / 1000 99.8 78 27 108/37 100 OXYGEN 15 /13 1000 99 12/ 0900 89 26 122/50 97 OXYGEN 15 I&O Past 24 Hrs-ending at 0700 01/25 0700 Intake Total 2959.85 Output Total 694 Balance 2265.85 Last VS-Temp:100.1 B/P:150/57 Pulse:71 Resp:29 SaO2:100 OXYGEN Last weight lbs:176 oz:3 K.917 Method:Bed Scales Exam General appearance: sedated, intubated Cardiovascular: regular rate & rhythm Respiratory: good air movement (anter.), diminished breath sounds, rhonchi ABD: normal bowel sounds, soft, no tenderness Extremities: edema (mainly in arms) Skin: warm Assessment/Plan Problem List 1. MRSA pneumonia Status: Acute 2. Ventilator associated pneumonia Status: Acute 3. Respiratory failure Status: Acute 4. Atrial fibrillation with RVR Status: Acute 5. Pneumothorax Status: Resolved 6. Hemothorax on right Status: Acute 7. S/P chest tube placement 8. NSTEMI (non-ST elevated myocardial infarction) Status: Acute 9. CHF (congestive heart failure) Status: Acute 10. Type 2 diabetes mellitus Status: Chronic 11. HTN (hypertension) Status: Chronic 12. Hypotension Status: Resolved 13. Pulmonary edema Status: Resolved 14. Anemia 15. Diarrhea 16. Nutritional deficiency This inpt stay is expected to cross 2 MNs from start of care Yes Comments: ABG reviewed, alkalosis seems to be due to overbreathing of the vent. She is more sedated now and resp. rate has slowed. Continue current treatment. at 0849
[2017-01-25 13:36] LABS: ALLEN'S TEST PATIENT UNABLE; ARTERIAL ABE -3.5 MMOL/L (-2.4-+2.3); ARTERIAL TCO2 21.4 MMOL/L (23-27); OXYGEN 30; PRESSURE SUPPORT 10; VENT RATE 14
--- NOTE | 2017-01-25 13:40 | ACUTE CARE PROGRESS NOTE (QUA) ---
Progress Notes Subjective Date 01/25/17 Time 1328 Note 81 yo WF in ICU on vent. Waiting for bed at . Continues on Vancomycin. Telemetry shows A. fib with CVR earlier this AM but after transient second degree AV block type 2 during suctioning she is now in sinus rhythm. Called by nurses this afternoon for 8-9 second episode of complete heart block. Objective Findings Last VS-Temp:98.3 B/P:95/30 Pulse:82 Resp:22 SaO2:100 OXYGEN Last weight lbs:176 oz:3 K.917 Method:Bed Scales Exam General appearance: sedated on the vent Cardiovascular: regular rate & rhythm Respiratory: rhonchi Extremities: edema Neuro: sedated Reviewed: medications, vital signs, lab results Assessment/Plan Problem List 1. MRSA pneumonia Status: Acute 2. Ventilator associated pneumonia Status: Acute 3. Respiratory failure Status: Acute Qualifiers: Chronicity: acute Respiratory failure complication: unspecified whether with hypoxia or hypercapnia Qualified Code: J96.00 - Acute respiratory failure, unspecified whether with hypoxia or hypercapnia 4. Atrial fibrillation with RVR Status: Acute Assessment/Plan: converted to sinus rhythm, continue amiodarone 5. Pneumothorax Status: Resolved Qualifiers: Pneumothorax type: postprocedural Qualified Code: J95.811 - Postprocedural pneumothorax 6. Hemothorax on right Status: Acute 7. S/P chest tube placement 8. NSTEMI (non-ST elevated myocardial infarction) Status: Acute 9. CHF (congestive heart failure) Status: Acute Qualifiers: Congestive heart failure type: combined Congestive heart failure chronicity: acute Qualified Code: I50.41 - Acute combined systolic (congestive) and diastolic (congestive) heart failure 10. Type 2 diabetes mellitus Status: Chronic 11. HTN (hypertension) Status: Chronic 12. Hypotension Status: Resolved 13. Pulmonary edema Status: Resolved Qualifiers: Chronicity: acute Qualified Code: J81.0 - Acute pulmonary edema 14. Anemia 15. Diarrhea 16. Nutritional deficiency 17. Complete heart block, transient Assessment/Plan: Will check potassium, mag level, ABG and dig level Patient condition Guarded Plan: As above. Stop digoxin and beta petty. Continue amiodarone. Will place her vent to assist control. Pacing pads in place and will use atropine PRN if needed. This inpt stay is expected to cross 2 MNs from start of care Yes at 1351
--- NOTE | 2017-01-31 13:45 | DISCHARGE SUMMARY STANDARD ---
Discharge Summary (FCA2) Date of admission: 01/12/17 Date of discharge: 01/25/17 Problem List: 1. MRSA pneumonia 2. Ventilator associated pneumonia 3. Respiratory failure 4. Atrial fibrillation with RVR 5. Pneumothorax 6. Hemothorax on right 7. S/P chest tube placement 8. NSTEMI (non-ST elevated myocardial infarction) 9. CHF (congestive heart failure) 10. Type 2 diabetes mellitus 11. HTN (hypertension) 12. Hypotension 13. Pulmonary edema 14. Anemia History of present illness: Ms. Connolly is an 81-year-old female who was just recently admitted and discharged after an episode of diverticulitis. She was sent home on Levaquin and flagyl. She stated she had not eaten well since being discharged. She began having strong heart palpitations. She stated it was to the point that she felt like her heart was going to "beat out of her chest." She began having pain in the LEFT side of her chest and in her epigastric area, therefore she presented to the emergency room. She was found to be in atrial fibrillation with a rapid ventricular response. She was admitted and started on a Cardizem drip. Exam on admission: General appearance: alert, awake, appears nervous Eyes: EOM's w/normal ROM, PERRLA ENT: nose normal, pharynx normal, dry mucous membranes Neck: non-tender, full range of motion, supple Cardiovascular: irregular rate & rhythm Respiratory: clear to auscultation ABD: non-distended, normal bowel sounds, no rebound, soft, no guarding, ttp in the LUQ Extremities: no peripheral edema Musculoskeletal: equal muscle strength, motor intact, sensation intact Skin: normal color Neuro: normal mood/affect, oriented, speech clear Hospital Course: The patient had a CXR showing CHF and a RUL infiltrate vs atelectasis. Cardiology was consulted and they ordered an Echo, which showed an EF of 25%. She had an elevated troponin so she was taken to the [facility] where stents were placed in her LAD and the 2nd obtuse marginal artery. She did have severe left ventricular dysfunction. The patient began developing severe respiratory distress after the heart cath and was given IV amiodarone and had to be intubated. She was cardioverted while intubated and converted to NSR, but then experienced sinus bradycardia and hypotension. A central line had to be placed to give inotropic agents. She was started on dopamine, milrinone, amiodarone, and a heparin drip. A CXR post central line placement showed a right pneumothorax therefore, surgery was consulted to place a chest tube. It was placed without difficulty. She was taken back to the [facility] for IABP. It showed an EF of 40% with intravascular dehydration. She was given IVF's and was able to be weaned off the dopamine drip. She then went back into afib and cardioversion was attempted but failed. She then had to be started on digoxin and levophed. Her HGB dropped so a CT of the chest, abdomen and pelvis was ordered. It showed fluid in the right chest consistent with a hemothorax despite chest tube placement. The smaller chest tube was removed and a larger one was placed with 450mL of blood evacuated. She then had to be given 2 units of PRBC's. She was continued on amiodarone and digoxin and was able to be extubated on 01/16/17. Her chest tube was removed after a repeat CXR showed no pneumothorax. The patient began getting SOA again and d/t pulmonary decompensation, a right chest tube had to be placed again with 300mL evacuated. She once again became hypotensive and had to be intubated and started on levophed. She was started on tube feedings. She then developed a fever and a CXR showed a pneumonia. She was started on zosyn, levaquin, and vancomycin. Her sputum grew out MRSA. The patient had another CT of the chest showing a large right hemothorax. It was felt she would need transfer to to the CT surgery team. A bed was found for the patient and she was transferred to under the care of Selena Anderson. Discharge medications: Stop taking the following medications: Furosemide (Lasix 20MG) 20 MG TABLET ORAL DAILY Simvastatin (Simvastatin) 20 MG TABLET ORAL AT BEDTIME NIGHTLY Loratadine (Claritin 10MG) 10 MG TABLET ORAL DAILY Aspirin (Aspirin) 81 MG TAB.CHEW ORAL DAILY NIFEDIPINE (Nifedipine ER) 30 MG TABLET.ER ORAL AT BEDTIME NIGHTLY Metformin HCL (Metformin) 500 MG TABLET ORAL TWICE A DAY WARFARIN SOD (Warfarin 5MG) 5 MG TABLET ORAL 3 DAYS/WEEK METOPROLOL SUCCINATE XL (Metoprolol Succinate) 100 MG TAB.ER.24H ORAL DAILY Sertraline Hydrochloride (Sertraline 100MG) 100 MG TABLET ORAL DAILY Qty = 30 CALCIUM CARBONATE/VITAMIN D3 (Calcium 500 + Vit D 400 Tablet) 1 EACH TABLET ORAL TWICE A DAY Vitamin E (Vitamin E) 400 UNIT CAPSULE ORAL DAILY CHOLECALCIFEROL (VITAMIN D3) (Vitamin D3) 1,000 UNIT TABLET ORAL DAILY Multivitamin/Iron/Folic Acid (Centrum Adults Tablet) 1 EACH TABLET ORAL DAILY WARFARIN SOD (Warfarin 5MG) 5 MG TABLET ORAL 4 DAYS/WEEK Metronidazole (Metronidazole) 500 MG TABLET ORAL THREE TIMES A DAY Qty = 21 Levofloxacin (Levaquin 500MG) 500 MG TABLET ORAL DAILY Qty = 7 Tramadol Hcl (Tramadol 50MG) 50 MG TABLET ORAL EVERY 6 HOURS NEEDED as needed for PAIN Qty = 15 Disposition: F/U with: SELENA ANDERSON Follow up: 1 DAY Activity: Cont Current activity Diet: Continue same diet Discharge to: ACUTE FACILITY TRANSFER Specify acute transfer facility: [facility] at 8199
== END 2017-01-25 18:12 | disposition short-term general hospital (02) | DRG 246 ==
LOC: ER 00:51 → 2ND 02:41 → ICU 03:24
PROVIDERS: Emergency Medicine; Family Medicine; Internal Medicine
PROC: 027135Z Dilation of Coronary Artery, Two Arteries with Two Drug-eluting Intraluminal Devices, Percutaneous Approach (ICD-10-PCS; 2017-01-12)
PROC: 5A1945Z Respiratory Ventilation, 24-96 Consecutive Hours (ICD-10-PCS; 2017-01-12)
PROC: B2151ZZ Fluoroscopy of Left Heart using Low Osmolar Contrast (ICD-10-PCS; 2017-01-12)
PROC: B2111ZZ Fluoroscopy of Multiple Coronary Arteries using Low Osmolar Contrast (ICD-10-PCS; 2017-01-12)
PROC: 0BH17EZ Insertion of Endotracheal Airway into Trachea, Via Natural or Artificial Opening (ICD-10-PCS; 2017-01-12)
PROC: 5A2204Z Restoration of Cardiac Rhythm, Single (ICD-10-PCS; 2017-01-12)
PROC: 0W9930Z Drainage of Right Pleural Cavity with Drainage Device, Percutaneous Approach (ICD-10-PCS; 2017-01-12)
PROC: 4A023N7 Measurement of Cardiac Sampling and Pressure, Left Heart, Percutaneous Approach (ICD-10-PCS; principal; 2017-01-12 10:30)
PROC: B2151ZZ Fluoroscopy of Left Heart using Low Osmolar Contrast (ICD-10-PCS; 2017-01-13)
PROC: 4A023N7 Measurement of Cardiac Sampling and Pressure, Left Heart, Percutaneous Approach (ICD-10-PCS; 2017-01-13)
PROC: 0W9930Z Drainage of Right Pleural Cavity with Drainage Device, Percutaneous Approach (ICD-10-PCS; 2017-01-14)
PROC: 5A1955Z Respiratory Ventilation, Greater than 96 Consecutive Hours (ICD-10-PCS; 2017-01-19)
PROC: 0BH17EZ Insertion of Endotracheal Airway into Trachea, Via Natural or Artificial Opening (ICD-10-PCS; 2017-01-19)
PROC: 0W9930Z Drainage of Right Pleural Cavity with Drainage Device, Percutaneous Approach (ICD-10-PCS; 2017-01-19)
DX: I21.09 ST elevation (STEMI) myocardial infarction involving other coronary artery of anterior wall (principal); J96.01 Acute respiratory failure with hypoxia; J15.212 Pneumonia due to Methicillin resistant Staphylococcus aureus; R57.0 Cardiogenic shock; J81.0 Acute pulmonary edema; I50.41 Acute combined systolic (congestive) and diastolic (congestive) heart failure; J95.851 Ventilator associated pneumonia; I44.2 Atrioventricular block, complete; J95.811 Postprocedural pneumothorax; I25.119 Atherosclerotic heart disease of native coronary artery with unspecified angina pectoris; Z72.0 Tobacco use; I10 Essential (primary) hypertension; E11.9 Type 2 diabetes mellitus without complications
CPT/HCPCS: C1725; C1751; C1769; C1876; J0282; J1644; J1956; J2260; J2543; J2704; J3370; J7060; P9016; Q9967